=== PATIENT | male | born 1940 | race Caucasian/White ===

== ENCOUNTER 2017-01-27 17:30 | Emergency (ER) | payer MEDICARE ==
--- NOTE | 2017-01-27 17:56 | UC ---
Eye Complaint HPI - HPI Summary HPI Summary: 76 YEAR OLD MALE PRESENTS WITH COMPLAINS OF FOREIGN BODY IN LEFT EYE. - History of Current Complaint Chief Complaint: UCEye Stated Complaint: EYE COMPLAINT Time Seen by Provider: 01/27/17 17:50 Hx Obtained From: Patient Onset/Duration: Sudden Onset Timing: Constant Severity Initially: Moderate Severity Currently: Moderate Pain Scale Used: 0-10 Numeric - 5 Location of Injury: Conjunctiva, Eye Lid (upper) Character: Sharp, Throbbing Aggravating Factor(s): Light Alleviating Factor(s): Nothing - Allergies/Home Medications Allergies/Adverse Reactions: Allergies Allergy/AdvReac Type Severity Reaction Status Date / Time No Known Allergies Allergy Verified 01/27/17 17:35 PMH/Surg Hx/FS Hx/Imm Hx Previously Healthy: Yes - Surgical History Surgical History: Yes Surgery Procedure, Year, and Place: 1958 Correction of blocked ureter at 17yrs old. 1963 TONSILLECTOMY. FALL 2013 x 3 Prostate biopsy [facility] [place] * [place] 2011 LEFT ING.hernia repair [facility] [place]. 05/2013 CARDIAC STENTSx2 [facility] [place]. Right nephrectomy - Social History Alcohol Use: None Substance Use Type: None Smoking Status (MU): Never Smoked Tobacco Have You Smoked in the Last Year: No - Immunization History Most Recent Influenza Vaccination: never Most Recent Tetanus Shot: > 10 years ago Most Recent Pneumonia Vaccination: never Review of Systems Constitutional: Negative Skin: Negative Eyes: Drainage, Eye Redness, Photophobia ENT: Negative Respiratory: Negative Cardiovascular: Negative Gastrointestinal: Negative Genitourinary: Negative Motor: Negative Neurovascular: Negative Musculoskeletal: Negative Neurological: Negative Psychological: Negative All Other Systems Reviewed And Are Negative: Yes Physical Exam Triage Information Reviewed: Yes Vital Signs: Initial Vital Signs Temp 37.2 C 01/27/17 17:37 Pulse 56 01/27/17 17:37 Resp 16 01/27/17 17:37 Pulse Ox 100 01/27/17 17:37 Vital Signs Reviewed: Yes Eyes: Positive: Conjunctiva Inflamed, Discharge ENT Exam: Normal Dental Exam: Normal Neck exam: Normal Neck: Positive: 1 Respiratory Exam: Normal Cardiovascular Exam: Normal Abdominal Exam: Normal Musculoskeletal Exam: Normal Neurological Exam: Normal Psychological Exam: Normal Skin Exam: Normal Eye Complaint Course/Dx - Course Course Of Treatment: NO CORNEAL ABRASION SEEN ON FLUORESCEIN EXAM - Differential Dx/Diagnosis Provider Diagnoses: FOREIGN BODY LEFT EYE. EYE PAIN Discharge - Discharge Plan Condition: Stable Disposition: HOME Prescriptions: Ciprofloxacin 0.3% OPTH.ZEUS* [Cipro 0.3% Opth*] 2 drop LEFT EYE Q4H #1 btl Patient Education Materials: Conjunctivitis (ED), Eye Foreign Body (ED) Referrals: Guru Whittaker MD [Medical Doctor] - Silvio Laurent [Primary Care Provider] -
[2017-01-27] MEDS ORDERED: Fluorescein Sodium TOPICAL* 1 MG TEST ONE (17:57)
[2017-01-27] MEDS ORDERED: BSS OPTH.SOL* BTL ONE (17:58)
[2017-01-27] MEDS ORDERED: Tetracaine 0.5% OPTH.SOL 4 ML* 1 DROP BTL LEFT EYE ONE (17:58)
[2017-01-27] MEDS ORDERED: Tetracaine 0.5% OPTH.SOL 4 ML* 1 DROP BTL ONE (17:58)
[2017-01-27] MEDS ORDERED: Fluorescein Sodium TOPICAL* 1 MG TEST OPHTHALMIC ONE (20:31)
== END 2017-01-27 18:12 | disposition home or self-care (01) ==
LOC: UCEAST 17:30
DX: T15.92XA Foreign body on external eye, part unspecified, left eye, initial encounter (principal); H57.12 Ocular pain, left eye; X58.XXXA Exposure to other specified factors, initial encounter
CPT/HCPCS: 99212; A9270-GY; G0463

== ENCOUNTER 2017-06-17 13:16 | Emergency (ER) | payer MEDICARE ==
--- NOTE | 2017-06-17 14:05 | UC ---
Syncope/New Syncope HPI - HPI Summary HPI Summary: 12:30PM TODAY PT WAS TAPPING A MAPLE TREE WHEN HE PASSED OUT. WITNESSED BY BROTHER WHO IS NOT AVAILABLE TO GIVE HIS ACCOUNT. PT NOT SURE HOW LONG HE WAS UNCONSCIOUS. DENIES HEADACHE, NAUSEA, DIZZINESS, CP, SOB. FEELS LIGHTHEADED. NOT WORSE WITH CHANGE IN POSITION. CROCHETER DR. DANIELLE/DR. CATALAN. - History Of Current Complaint Chief Complaint: UCDizziness Stated Complaint: DIZZINESS Time Seen by Provider: 06/17/17 13:50 Hx Obtained From: Patient Onset/Duration: Sudden Onset Context: Witnessed - BROTHER Pain Intensity: 0 Pain Scale Used: 0-10 Numeric Aggravating Factor(s): Nothing Alleviating Factor(s): Spontaneous Resolution Associated Signs And Symptoms: Positive: Lightheadedness. Negative: AMS, Chest Pain, Headache, Numbness, Pain, Palpitations, Shortness Of Breath, Vomiting - Allergies/Home Medications Allergies/Adverse Reactions: Allergies Allergy/AdvReac Type Severity Reaction Status Date / Time No Known Allergies Allergy Verified 06/17/17 13:27 PMH/Surg Hx/FS Hx/Imm Hx Cardiovascular History: Cardiac Disease, Hypertension - Surgical History Surgical History: Yes Surgery Procedure, Year, and Place: 9 Correction of blocked ureter at 17yrs old. 1964 TONSILLECTOMY. FALL 2013 x 3 Prostate biopsy [facility]. 2011 LEFT ING.hernia repair [facility] [place]. 05/2013 CARDIAC STENTSx2 [facility] [place]. Right nephrectomy - Family History Known Family History: Positive: Hypertension - Social History Alcohol Use: None Substance Use Type: None Smoking Status (MU): Never Smoked Tobacco Have You Smoked in the Last Year: No - Immunization History Most Recent Influenza Vaccination: never Most Recent Tetanus Shot: > 10 years ago Most Recent Pneumonia Vaccination: never Review of Systems Constitutional: Negative Respiratory: Negative Cardiovascular: Negative Gastrointestinal: Negative Neurological: Other - LIGHTHEADED All Other Systems Reviewed And Are Negative: Yes Physical Exam Triage Information Reviewed: Yes Appearance: No Pain Distress, Well-Nourished, Other: - APPEARS FATIGUED AND SLIGHTLY DISHEVELED Vital Signs: Initial Vital Signs Temp 97.5 F 06/17/17 13:27 Pulse 82 06/17/17 13:27 Resp 16 06/17/17 13:27 BP 151/77 06/17/17 13:27 Pulse Ox 95 06/17/17 13:27 Vital Signs Reviewed: Yes Eyes: Positive: Conjunctiva Clear ENT: Positive: Hearing grossly normal, Pharynx normal, TMs normal Neck: Positive: Supple, Nontender, No Lymphadenopathy Respiratory Exam: Normal Cardiovascular: Positive: Other: - IRREGULARLY IRREGULAR Abdomen Description: Positive: Soft Musculoskeletal: Positive: No Edema Neurological: Positive: Alert Psychological: Positive: Normal Response To Family, Age Appropriate Behavior Skin: Negative: rashes Diagnostics - EKG Cardiac Rate: NL - 84BPM Cardiac Rhythm: AFib: New Syncope Course/Dx - Course Course Of Treatment: 2L O2 BY NC PLACED. PIV INSERTED. TO [facility] [place] ED BY AMBULANCE. - Differential Dx/Diagnosis Provider Diagnoses: SYNCOPE, ABNORMAL EKG - Physician Notification/Consults Discussed Patient Care With: Connor Bustos - TO [facility] [place] ED BY AMBULANCE Time Discussed With Above Provider: 14:00 Instructed by Provider To: MD Will See In ED Discharge - Discharge Plan Condition: Stable Disposition: TRANS HIGHER LVL OF CARE FAC Referrals: Silvio Laurent [Primary Care Provider] -
[2017-06-17 14:14] VITALS: BP 152/77
== END 2017-06-17 14:14 | disposition short-term general hospital (02) ==
LOC: UCEAST 13:16
DX: R55 Syncope and collapse (principal); R94.31 Abnormal electrocardiogram [ECG] [EKG]; I10 Essential (primary) hypertension
CPT/HCPCS: 93005; 99213; G0463

== ENCOUNTER 2017-06-17 14:31 | Inpatient (IN) | payer MEDICARE ==
[2017-06-17] MEDS ORDERED: Aspirin Low Dose CHEW TAB* 81 MG PO ONE (15:00)
[2017-06-17 15:01] LABS: ABS Basophils 0.1 10^3/ul (0-0.2); ABS Eosinophils 0.2 10^3/ul (0-0.6); ABS Lymphocytes 1.6 10^3/ul (1.0-4.8); ABS Monocytes 0.8 10^3/ul (0-0.8); ABS Nucleated RBC 0 10^3/ul; Eosinophil % 2.5 % (0-6); Hematocrit 42 % (42-52); Hemoglobin 14.3 g/dl (14.0-18.0); Lymphocyte % 20.7 % (25-47); Mean Corpuscular HGB Conc 34 g/dl (31-36); Mean Corpuscular Hemoglobin 28 pg (27-31); Mean Corpuscular Volume 84 fL (80-94); Mean Platelet Volume 8 um3 (7.4-10.4); Nucleated Red Blood Cells % 0; Platelet Count 168 10^3/ul (150-450); Red Blood Count 5.08 10^6/ul (4.0-5.4); Red Cell Distribution Width 15 % (10.5-15); White Blood Count 7.7 10^3/ul (3.5-10.8)
--- NOTE | 2017-06-17 15:08 | RAD ---
HISTORY: Atrial fibrillation COMPARISONS: August 21, 2015 VIEWS: 1: frontal portable view of the chest at 2:55 PM FINDINGS: LINES AND TUBES: None. CARDIOMEDIASTINAL SILHOUETTE: The cardiomediastinal silhouette is normal for portable technique. PLEURA: The costophrenic angles are sharp. No pleural abnormalities are noted. LUNG PARENCHYMA: The lungs are clear. ABDOMEN: The upper abdomen is clear. There is no subphrenic gas. BONES AND SOFT TISSUES: No bone or soft tissue abnormalities are noted. IMPRESSION: NO ACTIVE CARDIOPULMONARY DISEASE.
[2017-06-17 15:24] LABS: EGFR Non-African American 57.4 (>60)
[2017-06-17] MEDS ORDERED: Acetaminophen TAB* 325 MG PO PRN (16:17)
[2017-06-17] MEDS ORDERED: Ondansetron INJ* 2 MG/ML VIAL IV PRN (16:17)
[2017-06-17] MEDS ORDERED: Apixaban* 5 MG TAB PO SCH (16:19)
[2017-06-17 16:22] LABS: INR 1.02 (0.77-1.02)
[2017-06-17] MEDS: Apixaban* 5 MG TAB PO SCH (17:08)
[2017-06-17] MEDS ORDERED: Iodixanol* (CONTRAST) 320 MG/ML 100 ML SDV IV ONE (18:20)
[2017-06-17] MEDS: Atorvastatin* 20 MG TAB PO SCH (20:11)
--- NOTE | 2017-06-17 20:37 | RAD ---
INDICATION: Chest pain. Short of breath. Evaluate for pulmonary embolus. New onset atrial fibrillation COMPARISON: Chest x-ray June 17, 2017; CTA chest August 21, 2015 TECHNIQUE: Axial source images were obtained from the thoracic inlet to the hemidiaphragms following administration of [address] angiographic technique was utilized. Coronal and sagittal reconstructed images were acquired. CHEST FINDINGS: Neck/thyroid: The visualized neck to include the thyroid appear normal. Chest wall: There are no acute abnormalities of the bony thorax or chest wall. There is no supraclavicular, infraclavicular, or axillary lymphadenopathy. Lungs : There are no pulmonary parenchymal masses or infiltrates. There are patchy areas of air trapping/groundglass change which are new. There are calcified granulomas. There are no endobronchial lesions. Cardiomediastinal structures: There is no CT evidence of acute pulmonary embolic disease. The heart is enlarged with mild interval increase in size. There is no pericardial effusion. There is no evidence of aortic aneurysm or dissection. There is a calcified mitral annulus. There are multiple mildly prominent mediastinal lymph nodes, unchanged. The esophagus appears normal. Pleura : There are no pleural-based masses or effusions. Other: There is cholelithiasis. There is a small hiatal hernia. IMPRESSION: 1. No CT evidence of acute pulmonary embolic disease. 2. Patchy of air trapping/groundglass change representing a new finding. 3. Cardiomegaly with mild interval increase in heart size. 4. Evidence of old granulomatous disease. 5. Cholelithiasis. 6. Small hiatal hernia.
--- NOTE | 2017-06-17 22:58 | HP ---
CC: [facility]; Dr. Lombardi; Dr. Collado * HISTORY AND PHYSICAL: DATE OF ADMISSION: 06/17/17 PRIMARY CARE PROVIDER: [facility]. He does not know the name of his new PCP. CONSULTING DEPUTY GENERAL COUNSEL: Rebekah Lombardi MD ATTENDING PHYSICIAN WHILE IN THE HOSPITAL: Kahlil Winchester MD * (report dictated by Juma Melissa NP). CHIEF COMPLAINT: Syncope. HISTORY OF PRESENT ILLNESS: Mr. Pastor is a 76-year-old male patient. He carries a history of CAD. He has a history of prostate cancer, renal cancer, hyperlipidemia, CHF, hypertension, lymphoma, and history of sarcoidosis. He comes into our ER today stating that he was drinking up Pepsi and he had trouble getting the drink to go down and shortly thereafter, the next thing he remembers is he woke up on the floor. His brother was sitting over him trying to wake him up. He has stated that over the last couple of months, he has noticed at times when he does swallow, he does get lightheaded with this. He denies having any choking episodes and denies any coughing or shortness of breath. He states that he did not have any chest pain or palpitations today or fluttering in his chest, but he felt lightheaded before this had happened. He says that he has not been sick recently and there has been no fevers, chills. No vomiting. No diarrhea. He denied having any abdominal discomfort or any chest discomfort or shortness of breath or any orthopnea, weight gain, or swelling of the lower extremities. There has been no recent surgeries and no calf pain or leg pain or leg tenderness. He again was concerned because of this episode. He went over to [facility] and it was noted there that he appeared to be in AFib, which he has no recollection of. At that point, the patient was transferred to the hospital for further evaluation. PAST MEDICAL HISTORY: Again significant for: 1. CAD. 2. Prostate cancer. 3. Renal cancer, status post right nephrectomy. 4. Hyperlipidemia. 5. CHF. 6. Hypertension. 6. Lymphoma. 7. Sarcoidosis. PAST SURGICAL HISTORY: 1. He has had a right nephrectomy. 2. He has had tonsillectomy. 3. He has had heart catheterization with stent. HOME MEDICATIONS: According to the list provided includes: 1. Amlodipine 5 mg daily. 2. Metoprolol XL 25 mg p.o. daily. 3. Aspirin 81 mg daily. 4. Zocor 40 mg at bedtime. ALLERGIES TO MEDICATIONS: Include no known drug allergies. FAMILY HISTORY: His mother had a history of arrhythmia. The father lived to the age of 91. SOCIAL HISTORY: He does not smoke. He does not drink. Surrogate decision maker is his . REVIEW OF SYSTEMS: There is no documented fever. He denied having any significant weight change. There was no double vision. He denies having any ear discharge. There was no rhinorrhea. No sore throat. No thyroid enlargement. Denied having any chest pain. There has been no palpitations reported. He denies having any orthopnea. There was no nocturnal dyspnea. There was no abdominal discomfort. There was no dysuria, no frequency. No loss of consciousness. No pruritus and no skin ulceration. Review of 14 systems completed, all others negative. PHYSICAL EXAMINATION GENERAL: At this time, Mr. Pastor is a 76-year-old male patient. He is sitting in the ED stretcher. He does not appear to be in any acute distress. VITAL SIGNS: Blood pressure 132/75, pulse 72, respirations 16, O2 sat was 95% on room air, and his temperature was 97.8. HEENT: Head: Atraumatic. Eyes: EOMs intact. Sclerae are anicteric, not pale. Throat: Oral mucosa appears to be moist. No oropharyngeal erythema. NECK: Supple. LUNGS: Clear to auscultation. No wheezes, rales, or rhonchi. HEART: Sounds S1, S2. Irregularly irregular rate. No murmurs, rubs, or gallops. ABDOMEN: Soft, flat, nontender. Bowel sounds were present. EXTREMITIES: Pulses were 2+ throughout. No peripheral edema was noted. He had no calf tenderness at this point. NEUROLOGIC: He is awake. He is alert. He is oriented x3. His tongue is midline. His continuous loft operator were equal. There were no gross focal deficits. SKIN: Intact. DIAGNOSTIC STUDIES/LAB DATA: Today, WBC of 7.7, RBC of 5.08, hemoglobin of 14.3, hematocrit of 42, platelet count of 168. INR 1.02. Sodium 138, potassium 4.3, chloride of 108, bicarb 24, BUN 20, creatinine 1.22, which is right near his baseline, glucose 106, lactic 0.8, calcium 8.9, mag 2.0. Total bili 0.8, AST 20, ALT 14, alk phos 71. Troponin 0. Albumin of 4.1. TSH is pending. He did have a chest x-ray obtained today. The chest x-ray showed no active cardiopulmonary disease. EKG shows what appears to be atrial fibrillation, rate of 68. He had T-wave inversions in I, II, aVL along with aVF. He has had T-wave inversions in V4, 5 , and 6, and V3 and V2. When I look back to previous EKG, he has had these T- wave inversions in the past, but the AFib is new. Old medical records were reviewed. ASSESSMENT AND PLAN: Mr. Pastro is a 76-year-old male patient coming into the ED today with complaints of a syncopal episode in the setting of him drinking Pepsi and having difficulty swallowing. We were asked to evaluate for admission. We will admit him under inpatient status for: 1. Syncope. Again, the etiology of this could be cardiac arrhythmia related to possibly atrial fibrillation AFib with RVR. Could also be related to just vasovagal with him having difficulty with him drinking. He says this has happened a couple of times over the last few months, but nothing quite as severe as today. He says he fainted. He had no chest pain or palpitations with this. I think at this point, because of the atrial fibrillation, he deserves telemetry, echo, serial troponins. His mag was normal and his K was normal. TSH is pending. Ordered a Cardiology consult. I am going to go ahead and start him on Eliquis as his CHADS score is 3 which puts him at a high risk. So , I will put him on Eliquis for the time being, get Cardiology followup. I am also checking a D-dimer. 2. Coronary artery disease. We will continue his meds. He is on aspirin, beta - neisha, and statin. 3. Prostate cancer with renal cancer and lymphoma. He is to follow with Dr. Salgado. He is to continue his Lupron for his prostate cancer. 4. Hyperlipidemia. Continue statin therapy. 5. History of congestive heart failure. He does not appear to be in a failure. At this point, we are getting an echo, we will follow. 6. Hypertension. Continue meds as prescribed. 7. Sarcoidosis. We will continue to monitor and follow with his primary. This was a remote diagnosis. 8. DVT prophylaxis. He will be started on Eliquis. 9. Code status. Full code. 10. Fluids, electrolytes, and nutrition. He can have a heart healthy diet. TIME SPENT: Time spent on admission 60 minutes, greater than half the time was spent [id number] with the patient obtaining my history and physical; other half time was spent going over the plan of care with the patient and implementing plan of care. I did discuss the plan of care with my attending, Dr. Winchester; he is in agreement. JUMA MELISSA, NOEMI [id number]/CPS #: [id number]
--- NOTE | 2017-06-18 00:11 | PN ---
Progress Note - Progress Note Date of Service: 06/18/17 Note: Paged for 1.7 sec pause and 2.5 sec pause with HR in 50's. Will d/c metoprolol and amlodipine. ?cause of his syncope
[2017-06-18 06:29] LABS: ABS Basophils 0.1 10^3/ul (0-0.2); ABS Eosinophils 0.2 10^3/ul (0-0.6); ABS Lymphocytes 1.9 10^3/ul (1.0-4.8); ABS Monocytes 0.8 10^3/ul (0-0.8); ABS Nucleated RBC 0 10^3/ul; Eosinophil % 3.5 % (0-6); Hematocrit 41 % (42-52); Hemoglobin 13.7 g/dl (14.0-18.0); Lymphocyte % 26.9 % (25-47); Mean Corpuscular HGB Conc 34 g/dl (31-36); Mean Corpuscular Hemoglobin 28 pg (27-31); Mean Corpuscular Volume 84 fL (80-94); Mean Platelet Volume 8 um3 (7.4-10.4); Nucleated Red Blood Cells % 0.1; Platelet Count 158 10^3/ul (150-450); Red Blood Count 4.86 10^6/ul (4.0-5.4); Red Cell Distribution Width 15 % (10.5-15)
[2017-06-18 06:49] LABS: INR 1.1 (0.77-1.02)
[2017-06-18] MEDS: Apixaban* 5 MG TAB PO SCH ×2 (07:52→21:16)
[2017-06-18] MEDS: Aspirin Low Dose CHEW TAB* 81 MG PO SCH (07:52)
[2017-06-18] MEDS ORDERED: Metoprolol Succinate XL TAB* 25 MG PO SCH (09:00)
[2017-06-18] MEDS ORDERED: amLODIPine TAB* 5 MG PO SCH (09:00)
--- NOTE | 2017-06-18 17:08 | PN ---
Subjective Date of Service: 06/18/17 Interval History: Mr. Pastor states that he is feeling well today. He describes a sensation of lightheadedness from time to time when he drinks liquids. This lead to a syncopal episode yesterday. He states there is no rhyme or reason for why this happens. He has been eating and drinking well today without any such symptoms. He denies any difficulty with swallowing but reports that he will suddenly "feel funny" and lightheaded immediately after he swallows. He denies any vomiting. He has had no nausea or abdominal pain. Objective Active Medications: Acetaminophen (Tylenol Tab*) 650 mg PO Q4H PRN Apixaban (Eliquis*) 5 mg PO 0900,2100 ANDREAS Aspirin (Aspirin Low Dose Tab*) 81 mg PO QAM ANDREAS Atorvastatin Calcium (Lipitor*) 20 mg PO BEDTIME ANDREAS Ondansetron HCl (Zofran Inj*) 4 mg IV Q6H PRN Oxygen Devices in Use Now: None Appearance: Male sitting up in bed in NAD Eyes: No Scleral Icterus Ears/Nose/Mouth/Throat: Mucous Membranes Moist Neck: Trachea Midline Respiratory: Symmetrical Chest Expansion and Respiratory Effort, Clear to Percussion Cardiovascular: NL Sounds; No Murmurs; No JVD, No Edema Abdominal: NL Sounds; No Tenderness; No Distention Lymphatic: No Cervical Adenopathy Extremities: No Edema Skin: No Rash or Ulcers Neurological: Alert and Oriented x 3, NL Muscle Strength and Tone Nutrition: Taking PO's Result Diagrams: 06/18/17 06:07 06/18/17 06:07 Assess/Plan/Problems-Billing Assessment: Mr. Pastor is a 76 yo M with a PMH of CAD, prostate cancer, renal cancer, and sarcoidosis who was admitted on 06/17/17 with syncope, rapid afib, and ? for aspiration. - Patient Problems (1) Syncope Comment: - Suspect vasovagal r/t swallowing cold liquid in setting of afib. - No events noted on telemetry. (2) Afib Comment: - Remains in rate controlled afib. - Plan for LUIS cardioverson on Tuesday. - Continue metoprolol. - Continue eliquis. (3) HTN (hypertension) Comment: - BP well controlled. - Continue metoprolol, hold amlodipine. (4) CAD (coronary artery disease) Comment: - Asymptomatic. - Continue atorvastatin, metoprolol, and aspirin. (5) HLD (hyperlipidemia) Comment: - Continue atorvastatin. (6) DVT prophylaxis Comment: - Eliquis. (7) Full code status Comment: Status and Disposition: Inpatient with need for cardioversion on Tuesday. Anticipate discharge to home when medically stable.
[2017-06-18] MEDS: Atorvastatin* 20 MG TAB PO SCH (21:16)
--- NOTE | 2017-06-18 23:50 | CONS ---
CC: Hospitalist Service, Silvio Laurent PA-C; Dr. Collado CARDIOLOGY CONSULTATION NOTE: DATE OF CONSULT: 06/18/17 REASON FOR CONSULTATION: Loss of consciousness, atrial fibrillation, and shortness of breath. CHIEF COMPLAINT: Loss of consciousness. HISTORY OF PRESENT ILLNESS: Mr. Pastor is a 76-year-old patient followed by my partner, Dr. Collado, with known coronary artery disease. The patient was in his usual state of health. He was with his brother in a shop and started to drink a small cup of Pepsi and describes aspirating and unable to breathe. He felt dizzy and the next thing he knew he had woken up on the floor with his brother trying to wake him up. The patient states that for several months, he has trouble swallowing thin liquids, although he vehemently denies that he actually chokes, but he describes not being able to breathe with drinking thin liquids. Prior to this event, the patient had felt well. The patient was taken to the emergency room and found to be in atrial fibrillation. He is completely unaware of any palpitations or racing of the heart. Denies any chest pain, pressure, heaviness, orthopnea, or PND. PAST MEDICAL HISTORY: The patient has a past medical history of: 1. Coronary artery disease, most recent heart catheterization in December 2013 showing patent left main, LAD, 35 to 50% occlusions, circumflex 20% ostial narrowing with mild plaquing just more distally, right coronary artery dominant with a 60% narrowing in the right coronary artery, prior stents in the right coronary artery showed no thrombosis and distal right coronary artery had 40% occlusion. 2. Hypertension. 3. Dyslipidemia. 4. Prostate cancer. 5. Renal cell carcinoma, status post right nephrectomy. 6. History of congestive heart failure. 7. Sarcoidosis (distant biopsy proven at [facility]). MEDICATIONS: Outpatient medications include: 1. Toprol-XL 25 mg a day. 2. Amlodipine 5 mg a day. 3. Aspirin 81 mg a day. 4. Zocor 40 mg a day. Inpatient medications include: 1. Tylenol p.r.n. 2. Eliquis 5 mg b.i.d. 3. Aspirin 81 mg a day. 4. Lipitor 20 mg a day. 5. Toprol-XL 25 mg a day. 6. Ondansetron. ALLERGIES: The patient has no known drug allergies. FAMILY HISTORY: Mother with a rhythm problem. Father lived to age 91. SOCIAL HISTORY: The patient denies any exposures at work. He is currently retired. Nonsmoker. Nondrinker. Supportive , who is present with other family members. REVIEW OF SYSTEMS: The patient denies orthopnea, PND, fevers, chills, sweats, chest pain, pressure, heaviness, neck, jaw, arm pain. He denies missing any medications. He denies any changes in diet or recent travel or other alterations in activity. All other 14-point review of systems was unremarkable. PHYSICAL EXAMINATION: The patient is 5 feet 7 inches, weighs 190 pounds with a BMI of 30. Vitals: Currently, blood pressure 112/64, pulse 84, respiratory rate of 16, afebrile at 97.6, oxygen saturation 95% on room air. General Appearance: Older gentleman, appears comfortable, seated at 40 degrees, in no acute distress. Psychologically, pleasant and cooperative. Neurologically, awake, alert, oriented to person, place, and time. Cranial nerves II through XII intact. Grossly normal sensory and motor function in the upper and lower extremities and normal gait. Skin: Warm, dry. Age-appropriate changes. No appreciable cyanosis or rashes. HEENT: Pupils are equal and round. Mucous membranes moist. Neck: Without appreciable increase in JVP or thyromegaly. Lungs: Showed good effort and clear. No wheezing, rales, or rhonchi. Coronary : S1, S2, irregular without murmurs, rubs, or extra systoles. Abdomen: Soft and nontender. No appreciable hepatomegaly. Lower extremities were free of edema and warm. LABORATORY DATA/DIAGNOSTIC STUDIES: A 12-lead ECG from the emergency department yesterday at 4 p.m. shows no underlying atrial activity consistent with atrial fibrillation, irregularly irregular and V1 consistent with AFib. His ventricular rate is 68 beats a minute, QRS axis +30, normal AV conduction times, he has deeply inverted T waves across the precordial leads as well as in I, II, and aVL and flattened T waves in III and aVF. When this is compared with his baseline EKG at Dr. Collado' s office on 02/02/17, the AFib replaces sinus rhythm, but the T-wave inversions were seen previously. When I go back to the oldest EKG in our system of 2013, deeply inverted T waves were seen at that time as well. Chest x-ray shows no active disease. CT angiogram done yesterday on 06/17/17 shows no evidence of pulmonary embolus, patchy air trapping, this was a new finding, cardiomegaly, evidence of old granulomatous disease, hiatal hernia, and cholelithiasis. Labs: White count 7.0, hemoglobin 13.7, hematocrit 41, platelets 158, increased monos. INR 1.1. Sodium 136, potassium 4.3, chloride 108, bicarb 23, BUN 16, creatinine 0.98, glucose 102. Lactic acid 0.8. Magnesium 2.0. Normal transaminases. Troponins x3 0.00. TSH 6.55, free T4 was still pending. ASSESSMENT: In summary, Mr. Pastor is a 76-year-old gentleman who suffered a syncopal event after drinking Pepsi Cola, which sounds vagal to me and it sounds like he is aspirating without realizing it. There is a differential for his syncope, however, of tachy or brittani arrhythmias , especially with his past history of coronary artery disease as well as sarcoidosis. So, I agree with ongoing telemetry. The patient is now found in atrial fibrillation for which he is completely asymptomatic, likely because he shows good rate control. His atrial fibrillation is of uncertain duration, but new compared with January. I agree with anticoagulation as he is asymptomatic and has a CHADS score of at least 2 based on age and blood pressure, CHADsVASC 4. As this is his very first episode of AFib, I think he deserves cardioversion, but would need to be LUIS- guided. This was discussed with the patient. 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 A swallowing study has already been recommended, which I concur with. Additional recommendations will be made pending his clinical course and response to the above measures. long-term, he may benefit from an event monitor , external or implantable because of recurrent events, but this can be determined at a later date and we will keep him on inpatient telemetry for now. Thank you for allowing me to assist in this nice gentleman's care. [id number]/[facility] #: [id number] [facility]VERNEUR HEALTHBrianna
[2017-06-19] MEDS: Aspirin Low Dose CHEW TAB* 81 MG PO SCH (08:40)
[2017-06-19] MEDS: Metoprolol Succinate XL TAB* 25 MG PO SCH (08:40)
[2017-06-19] MEDS: Apixaban* 5 MG TAB PO SCH ×2 (08:40→20:34)
--- NOTE | 2017-06-19 10:43 | ECHO ---
Patient: CHRISTIAN DEGROOT Rec#: [id number] : 1940 Date: 06/19/2017 Age: 76y Height: 170.18 cm / 67.0 in Weight: 86.18 kg / 189.9 lbs Sex: M BSA: 1.98 Room#: 447 Admit Date#: 06/18/2017 Type: Inpatient Referring: Juma Melissa NP Reading: Nellie Baxter MD Pipe Inspector: Nelida Bhatia [facility] Transthoracic Echocardiogram Indication: Syncope/a-fib BP: 126/78 HR: 82 Rhythm: A-Fib Findings History: CAD with prior PCI,HTN,HLD,prostate cancer,renal cell cancer S/P right nephrectomy, CHF,sarcoidosis. Technical Comments: The study quality is good. Completed at 1010. Left Ventricle: The left ventricular chamber size is normal. Mild concentric left ventricular hypertrophy is observed. Global left ventricular wall motion and contractility are within normal limits.Gordon is not well seen, possible relative hypokinesis, possible thickening. The estimated ejection fraction is 50-55%. The assessment of diastolic function is non-diagnostic. The left ventricular diastolic filling pattern is consistent with elevated left ventricular end-diastolic pressure. Left Atrium: The left atrium is moderately dilated. Right Ventricle: The right ventricular cavity size is normal. The right ventricular global systolic function is normal. Right Atrium: The right atrium is mildly dilated. Aortic Valve: The aortic valve is trileaflet. The aortic valve leaflets are moderately thickened. There is moderate thickening of the non coronary cusp. Systolic excursion of the non coronary cusp is reduced.Does not open well. Systolic excursion of the right coronary cusp is reduced.Does not close completely. There is no evidence of aortic regurgitation. There is mild aortic stenosis. The highest aortic valve velocity was obtained with the standard probe from the A5C view. Mitral Valve: There is posterior mitral annular calcification. The mitral valve leaflets are mildly thickened. There is mild to moderate mitral regurgitation. There is no evidence of mitral stenosis. Tricuspid Valve: The tricuspid valve leaflets are normal. There is mild tricuspid regurgitation. The right ventricular systolic pressure is estimated at 41 mmHg. There is evidence of mild pulmonary hypertension. There is no tricuspid stenosis. Pulmonic Valve: The pulmonic valve appears normal. There is trace to mild pulmonic regurgitation. There is no pulmonic stenosis. Pericardium: A pericardial fat pad is visualized. Aorta: There is no dilatation of the ascending aorta. There is no dilatation of the aortic arch. There is no dilation of the aortic root. Pulmonary Artery: The main pulmonary artery appears normal. Venous: The inferior vena cava is dilated. There is a greater than 50% respiratory change in the inferior vena cava dimension. Conclusions Mild concentric left ventricular hypertrophy is observed. Global left ventricular wall motion and contractility are within normal limits, however the apex is not well seen, possible relative hypokinesis, possible thickening. The estimated ejection fraction is 50-55%. The left ventricular diastolic filling pattern is consistent with elevated left ventricular end-diastolic pressure. The right ventricular global systolic function is normal. Bi atrial enlargement. There is mild aortic stenosis. There is posterior mitral annular calcification and mild to moderate mitral regurgitation. There is mild tricuspid regurgitation. There is evidence of mild pulmonary hypertension: 41 mmHg. Compared with prior echo of 07/08/14, AFIb is new, the EF is stable, AV mildy tighter, mild increase in peak velocity and gradient across the aortic valve, the MR is newly noted, the TR is stable, PA pressure is stable. Recommendation: echo contrast to evaluate LV apex. Measurements Name Value Normal Range RVIDd (AP) 2D 2.8 cm (0.9 - 2.6) RVDdMajor (2D) 3.5 cm (2.2 - 4.4) RAd ISD 4CH 6.2 cm (3.4 - 4.9) RA (A4C)W 4.4 cm (2.9 - 4.6) IVSd (2D) 1 cm (0.6 - 1) LVPWd (2D) 1.2 cm (0.6 - 1) LVIDd (2D) 4.6 cm (3.6 - 5.4) LVIDs (2D) 3.2 cm - LV FS (2D) 30 % (25 - 45) Aortic Annulus 1.8 cm (1.4 - 2.6) Ao root diameter (2D) 3.3 cm (2.1 - 3.5) Ascending Ao 3.2 cm (2.1 - 3.4) Aortic arch 2.5 cm (1.8 - 3.4) Descending Ao 0.4 cm - LA dimension (AP) 2D 4.2 cm (2.3 - 3.8) LAd ISD 4CH 6.9 cm (2.9 - 5.3) LA ISD 4CH W 4.4 cm (2.5 - 4.5) Name Value Normal Range LA ESV SP 4CH (A/L) 90 ml - LA ESV SP 2CH (A/L) 83 ml - LA ESV BP (A/L) 89 ml - LA ESV BP (A/L) index 44.79 ml/m2 - LA ESV SP 4CH (MOD) 86 ml - LA ESV SP 2CH (MOD) 80 ml - Name Value Normal Range MV E-wave Vmax 1.1 m/sec - MV deceleration time 145 msec - MV A-wave Vmax 0.4 m/sec - MV E:A ratio 2.49 ratio - LV septal e' Vmax 0.07 m/sec - LV lateral e' Vmax 0.09 m/sec - LV E:e' septal ratio 15.71 ratio - LV E:e' lateral ratio 12.22 ratio - Name Value Normal Range AV Vmax 2.1 m/sec - AV VTI 38.7 cm - AV peak gradient 18 mmHg - AV mean gradient 8.75 mmHg - LVOT diameter 1.9 cm - LVOT Vmax 1 m/sec - LVOT VTI 20.1 cm - LVOT peak gradient 4.24 mmHg - LVOT mean gradient 1.98 mmHg - JAG (continuity Vmax) 1.3 cm2 - JAG (continuity VTI) 1.5 cm2 - Name Value Normal Range MR Vmax 5.2 m/sec - MR VTI 159.4 cm - Name Value Normal Range TR Vmax 2.9 m/sec - TR peak gradient 33 mmHg - RAP 8 mmHg - RVSP 41 mmHg - IVC diameter 2.1 cm - Name Value Normal Range PV Vmax 0.7 m/sec - PV peak gradient 1.83 mmHg -
--- NOTE | 2017-06-19 13:18 | PN ---
Subjective Date of Service: 06/19/17 - CC: LOC at admission Interval History: No further dizziness or LOC. No trouble eating or drinking here to date to date. No palpitations/racing of the heart. Medications Active Medications: Acetaminophen (Tylenol Tab*) 650 mg PO Q4H PRN PRN Reason: FEVER/PAIN Apixaban (Eliquis*) 5 mg PO 0900,2100 [facility] Last Admin: 06/19/17 08:40 Dose: 5 mg Aspirin (Aspirin Low Dose Tab*) 81 mg PO QAM [facility] Last Admin: 06/19/17 08:40 Dose: 81 mg Atorvastatin Calcium (Lipitor*) 20 mg PO BEDTIME [facility] Last Admin: 06/18/17 21:16 Dose: 20 mg Metoprolol Succinate (Toprol Xl Tab*) 25 mg PO DAILY [facility] Last Admin: 06/19/17 08:40 Dose: 25 mg Ondansetron HCl (Zofran Inj*) 4 mg IV Q6H PRN PRN Reason: NAUSEA Objective Vital Signs: Temp Pulse Resp BP Pulse Ox 97.9 F 67 18 128/67 98 06/19/17 07:42 06/19/17 07:42 06/19/17 08:00 06/19/17 07:42 06/19/17 07:56 Oxygen Devices in Use Now: None Appearance: elderly gentleman, eating lunch, in no distress. Eyes: No Scleral Icterus, PERRLA Ears/Nose/Mouth/Throat: NL Teeth, Lips, Gums, Clear Oropharnyx, Mucous Membranes Moist Neck: NL Appearance and Movements; NL JVP, Trachea Midline, No Thyroid Enlargement, Masses Respiratory: Symmetrical Chest Expansion and Respiratory Effort, Clear to Auscultation Cardiovascular: NL Sounds; No Murmurs; No JVD, RRR Abdominal: NL Sounds; No Tenderness; No Distention, No Hepatosplenomegaly Extremities: No Edema Skin: No Rash or Ulcers Neurological: Alert and Oriented x 3 Lines/Tubes/Other Access: Clean, Dry and Intact Peripheral IV Laboratory Results: INR (Anticoag Therapy) 1.10 (0.77-1.02) H 06/18/17 06:07 Total Bilirubin 0.80 mg/dL (0.2-1.0) 06/17/17 14:51 AST 20 U/L (13-39) 06/17/17 14:51 ALT 14 U/L (7-52) 06/17/17 14:51 Alkaline Phosphatase 71 U/L (34-104) 06/17/17 14:51 Total Protein 6.7 g/dL (6.4-8.9) 06/17/17 14:51 Albumin 4.1 g/dL (3.2-5.2) 06/17/17 14:51 Globulin 2.6 g/dL (2-4) 06/17/17 14:51 Albumin/Globulin Ratio 1.6 (1-3) 06/17/17 14:51 TSH 6.55 mcIU/mL (0.34-5.60) H 06/17/17 14:51 Diagnostic Imaging: ECG: Afib, good rate control. ECHO 06/19/17: EF 55%, mild , mild to mod MR, mild TR, PA pr 41 mmHg. Assessment/Plan 76 yo male admitted with LOC right after swallowing Pepsi and hx dizziness with swallowing intermittently. Found in new Afib, uncertain duration (NSR January) , good rate control. Hx CAD with distant stents. Syncope: Probably vagal but monitor with hx CAD and sarcoid. AF: Anticoagulate, continue metoprolol for rate control. LUIS and CV in AM, procedure explained to the patient and his daughter and . Dysphagia: Swallowing study and/or GI. CAD: BP and HR well controlled, Trops 0 x 3, appears stable at this time.
--- NOTE | 2017-06-19 14:38 | PN ---
Subjective Date of Service: 06/19/17 Interval History: Mr. Pastor reports feeling ok today. He reports feeling mildly lightheaded with mobility but denies any lightheadedness with swallowing or difficulty swallowing today. Objective Active Medications: Acetaminophen (Tylenol Tab*) 650 mg PO Q4H PRN Apixaban (Eliquis*) 5 mg PO 0900,2100 ANDREAS Aspirin (Aspirin Low Dose Tab*) 81 mg PO QAM ANDREAS Atorvastatin Calcium (Lipitor*) 20 mg PO BEDTIME ANDREAS Metoprolol Succinate (Toprol Xl Tab*) 25 mg PO DAILY ANDRE[facility] Ondansetron HCl (Zofran Inj*) 4 mg IV Q6H PRN Vital Signs: Temp Pulse Resp BP Pulse Ox 97.9 F 67 18 128/67 98 06/19/17 07:42 06/19/17 07:42 06/19/17 08:00 06/19/17 07:42 06/19/17 07:56 Oxygen Devices in Use Now: None Appearance: Male lying in bed in NAD Eyes: No Scleral Icterus Ears/Nose/Mouth/Throat: Mucous Membranes Moist Neck: Trachea Midline Respiratory: Symmetrical Chest Expansion and Respiratory Effort, Clear to Auscultation Cardiovascular: NL Sounds; No Murmurs; No JVD, No Edema Abdominal: NL Sounds; No Tenderness; No Distention Lymphatic: No Cervical Adenopathy Extremities: No Edema Skin: No Rash or Ulcers Neurological: Alert and Oriented x 3, NL Muscle Strength and Tone Nutrition: Taking PO's Result Diagrams: 06/18/17 06:07 06/18/17 06:07 Assess/Plan/Problems-Billing Assessment: Mr. Pastor is a 76 yo M with a PMH of CAD, prostate cancer, renal cancer, and sarcoidosis who was admitted on 06/17/17 with syncope, rapid afib, and ? for aspiration. - Patient Problems (1) Syncope Comment: - Suspect vasovagal r/t swallowing liquid in setting of afib. - No events noted on telemetry. (2) Afib Comment: - Remains in rate controlled afib. - Plan for LUIS cardioverson on Tuesday. - Continue metoprolol. - Continue eliquis. (3) Swallowing disorder Comment: - Plan for esophogram, ? esophageal motility problem or stricture. (4) HTN (hypertension) Comment: - BP well controlled. - Continue metoprolol, hold amlodipine. (5) CAD (coronary artery disease) Comment: - Asymptomatic. - Continue atorvastatin, metoprolol, and aspirin. (6) HLD (hyperlipidemia) Comment: - Continue atorvastatin. (7) DVT prophylaxis Comment: - Eliquis. (8) Full code status Comment: Status and Disposition: Inpatient with need for cardioversion on Tuesday. Anticipate discharge to home when medically stable.
[2017-06-19] MEDS: Atorvastatin* 20 MG TAB PO SCH (20:33)
--- NOTE | 2017-06-19 22:47 | ED ---
Kimo Woods Jennifer, scribed for Connor Bustos MD on 06/17/17 at 1454 . Syncope/Near Syncope - HPI Summary HPI Summary: The patient is a 76 year old male who presents with an episode of syncope at 12: 00 today. The patient reports that he was drinking cola when he felt like he wasnt getting enough O2 to his head, became dizzy, and fell over. He additionally complains that hes had shortness of breath for the past 3-4 years. The patient denies chest pain, back pain, arm pain, and cough. The patient reports that this has happened before, also after drinking a beverage. - History Of Current Complaint Chief Complaint: EDSyncope Hx Obtained From: Patient Onset/Duration: Lasting Hours - Occurred at 12:00 today Timing: Frequency Of Episodes - Occurred at least once before Activity At Onset: Other - Drinking cola Associated Head Trauma: No Aggravating Factor(s): Nothing Alleviating Factor(s): Nothing Associated Signs And Symptoms: Negative - chest pain, back pain, arm pain, cough , Other - Shortness of breath, dizziness - Allergies/Home Medications Allergies/Adverse Reactions: Allergies Allergy/AdvReac Type Severity Reaction Status Date / Time No Known Allergies Allergy Verified 06/17/17 13:27 Home Medications: Home Medications Metoprolol Succinate XL TAB* [Toprol XL TAB*] 25 mg PO QAM 06/17/17 [History Confirmed 06/17/17] Simvastatin (NF) [Zocor (NF)] 40 mg PO BEDTIME 06/17/17 [History Confirmed 06/17] amLODIPine TAB* [Norvasc 5 mg TAB*] 5 mg PO QAM 06/17/17 [History Confirmed ] PMH/Surg Hx/FS Hx/Imm Hx Endocrine/Hematology History: Denies: Hx Diabetes, Hx Thyroid Disease Cardiovascular History: Reports: Hx Angina, Hx Congestive Heart Failure - pt states, Hx Coronary Artery Disease - 2 STENTS, 05/2013, Hx Hypertension - TREATED , Other Cardiovascular Problems/Disorders - SARCOID Denies: Hx Pacemaker/ICD Respiratory History: Reports: Other Respiratory Problems/Disorders - Hx OF Sarcoidosis Denies: Hx Asthma, Hx Chronic Obstructive Pulmonary Disease (COPD) GI History: Reports: Other GI Disorders - hernia, left side Denies: Hx Ulcer History: Reports: Hx Benign Prostatic Hyperplasia, Hx Kidney Stones, Hx Renal Disease - carcinoma, Other Problems/Disorders - 1958SURGERY, BLOCKED URETER, prostate cancer Denies: Hx Dialysis Musculoskeletal History: Denies: Hx Arthritis, Hx Osteoporosis Sensory History: Reports: Hx Contacts or Glasses - not with patient, Hx Hearing Aid - DOES NOT WEAR OFTEN Opthamlomology History: Reports: Hx Contacts or Glasses - not with patient Psychiatric History: Denies: Hx Panic Disorder - Cancer History Cancer Type, Location and Year: Kidney CA. prostate CA. lymphoma Hx Chemotherapy: No Hx Radiation Therapy: Yes - 40 TREATMENTS TO PROSTATE Hx Palliative Cancer Treatment: No - Surgical History Surgery Procedure, Year, and Place: 1958 Correction of blocked ureter at 17yrs old. 1963 TONSILLECTOMY. FALL 2013 x 3 Prostate biopsy [facility]. 2011 LEFT ING.hernia repair [facility] [place]. 05/2013 CARDIAC STENTSx2 [facility] [place]. Right nephrectomy Hx Anesthesia Reactions: No Infectious Disease History: No Infectious Disease History: Denies: Hx Clostridium Difficile, Hx Hepatitis, Hx Human Immunodeficiency Virus (HIV), Hx of Known/Suspected MRSA, Hx Shingles, Hx Tuberculosis, Hx Known/ Suspected VRE, Hx Known/Suspected VRSA, History Other Infectious Disease, Traveled Outside the [place] in Last 30 Days - Family History Known Family History: Positive: Hypertension - Social History Alcohol Use: None Hx Substance Use: No Substance Use Type: Reports: None Hx Tobacco Use: No Smoking Status (MU): Never Smoked Tobacco Have You Smoked in the Last Year: No Review of Systems Negative: Fever, Chills Negative: Erythema Negative: Sore Throat Negative: Chest Pain Positive: Shortness Of Breath. Negative: Cough Negative: Abdominal Pain, Vomiting, Nausea Negative: dysuria, hematuria Negative: Myalgia, Edema Negative: Rash Neurological: Other - Dizziness Positive: Syncope All Other Systems Reviewed And Are Negative: Yes Physical Exam - Summary Physical Exam Summary: Constitutional: Well-developed, Well nourished, Alert. (-) Distressed Skin: Warm, Dry HENT: Normocephalic; Atraumatic Eyes: Conjunctiva normal Neck: Musculoskeletal ROM normal neck. (-) JVD, (-) Stridor, (-) Tracheal deviation Cardio: Rhythm regular, rate normal, Heart sounds normal; Intact distal pulses; The pedal pulses are 2+ and symmetric. Radial pulses are 2+ and symmetric. (-) Murmur Pulmonary/Chest wall: Effort normal. (-) Respiratory distress, (-) Wheezes, (-) Rales Abd: Soft, (-) Tenderness, (-) Distension, (-) Guarding, (-) Rebound Musculoskeletal: (-) Edema Lymph: (-) Cervical adenopathy Neuro: Alert, Oriented x3 Psych: Mood and affect Normal Triage Information Reviewed: Yes Vital Signs On Initial Exam: Initial Vitals Temp Pulse Resp BP Pulse Ox 97.8 F 78 14 147/72 98 06/17/17 14:39 06/17/17 14:39 06/17/17 14:39 06/17/17 14:39 06/17/17 14:39 Vital Signs Reviewed: Yes Diagnostics - Vital Signs Vital Signs Temp Pulse Resp BP Pulse Ox 06/17/17 14:39 97.8 F 78 14 147/72 98 - Laboratory Result Diagrams: 06/17/17 14:51 06/17/17 14:51 Lab Statement: Any lab studies that have been ordered have been reviewed, and results considered in the medical decision making process. - Radiology CXR Xray Interpretation: No Acute Changes - NO ACTIVE CARDIOPULMONARY DISEASE. Dr. Bustos has reviewed this report. Radiology Interpretation Completed By: Radiologist - EKG 14:38 EKG Rhythm: Atrial Fibrillation - 68 BPM EKG Interpretation: JE, no STEMI, ST depressions in V4-V6 EKG Comparison: No Significant Change - from prior EKGs Course/Dx Assessment/Plan: The patient is a 76 year old male who presents with an episode of syncope at 12:00 today. In the ED course the patient was given Aspirin. Bloodwork was obtained. EKG showed no significant change from prior EKGs. CXR was obtained. The patient is diagnosed with Syncopal episode . The patient is admitted to [facility] [place]. - Diagnoses Provider Diagnoses: Syncopal episodes - Physician Notifications Discussed Care of Patient With: Kahlil Winchester Time Discussed With Above Provider: 15:35 Instructed by Provider To: Admit As Inpatient Discharge - Discharge Plan Condition: Fair Disposition: ADMITTED TO [facility] documentation as recorded by the Kimo anguiano Jennifer accurately reflects the service I personally performed and the decisions made by , Connor Bustos MD.
--- NOTE | 2017-06-20 11:14 | RAD ---
INDICATION: Esophageal dysphagia. COMPARISON: Comparison is made with a prior study from November 06, 2004. Technique: A single contrast barium swallow exam was performed in the upright position and additional images were obtained supine. Approximately 2.7 minutes of intermittent fluoroscopic guidance were used during the exam. Findings: The esophageal peristalsis appeared decreased with multiple tertiary waves and slow clearing of the esophagus consistent with presbyesophagus. There is a sliding-type hernia present. Just above the hernia there is a small area of narrowing or stricture which is smooth in appearance with mild hold up of barium at that level. No gastroesophageal reflux was noted. IMPRESSION: 1. 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 2. SMALL HIATAL HERNIA WITHOUT EVIDENCE FOR GASTROESOPHAGEAL REFLUX. 3. PRESBYESOPHAGUS. CPT II Codes: 6045F
--- NOTE | 2017-06-20 11:23 | PN ---
Subjective Date of Service: 06/20/17 Interval History: Mr. Pastor denies complaint and is hopeful for discharge today. He specifically denies chest pain, SOB, nausea, or abdominal pain. Objective Active Medications: Acetaminophen (Tylenol Tab*) 650 mg PO Q4H PRN Apixaban (Eliquis*) 5 mg PO 0900,2100 ANDREAS Aspirin (Aspirin Low Dose Tab*) 81 mg PO QAM ANDREAS Atorvastatin Calcium (Lipitor*) 20 mg PO BEDTIME ANDREAS Metoprolol Succinate (Toprol Xl Tab*) 25 mg PO DAILY ANDREAS Ondansetron HCl (Zofran Inj*) 4 mg IV Q6H PRN Vital Signs: Temp Pulse Resp BP Pulse Ox 98.2 F 55 16 136/74 98 06/20/17 08:22 06/20/17 08:22 06/20/17 08:22 06/20/17 08:22 06/20/17 08:22 Oxygen Devices in Use Now: None Appearance: Male lying in bed in NAD Eyes: No Scleral Icterus Ears/Nose/Mouth/Throat: Mucous Membranes Moist Neck: Trachea Midline Respiratory: Symmetrical Chest Expansion and Respiratory Effort, Clear to Auscultation Cardiovascular: NL Sounds; No Murmurs; No JVD, No Edema Abdominal: NL Sounds; No Tenderness; No Distention Lymphatic: No Cervical Adenopathy Extremities: No Edema Skin: No Rash or Ulcers Neurological: Alert and Oriented x 3, NL Muscle Strength and Tone Nutrition: Taking PO's Result Diagrams: 06/18/17 06:07 06/18/17 06:07 Assess/Plan/Problems-Billing Assessment: Mr. Pastor is a 76 yo M with a PMH of CAD, prostate cancer, renal cancer, and sarcoidosis who was admitted on 06/17/17 with syncope, rapid afib, and ? for aspiration. - Patient Problems (1) Syncope Comment: - Suspect vasovagal r/t swallowing liquid in setting of afib. - No events noted on telemetry. (2) Afib Comment: - Remains in rate controlled afib. - Plan for LUIS cardioverson today. - Continue metoprolol. - Continue eliquis. (3) Swallowing disorder Comment: - None identified based on history and esophogram only found mild smooth stricture. - Refer to GI as needed outpatient. (4) HTN (hypertension) Comment: - BP well controlled. - Continue metoprolol, hold amlodipine. (5) CAD (coronary artery disease) Comment: - Asymptomatic. - Continue atorvastatin, metoprolol, and aspirin. (6) HLD (hyperlipidemia) Comment: - Continue atorvastatin. (7) DVT prophylaxis Comment: - Eliquis. (8) Full code status Comment: Status and Disposition: Inpatient. Anticipate discharge to home when medically stable.
[2017-06-20] MEDS: Metoprolol Succinate XL TAB* 25 MG PO SCH (12:08)
[2017-06-20] MEDS: Apixaban* 5 MG TAB PO SCH ×2 (12:09→21:13)
[2017-06-20] MEDS: Aspirin Low Dose CHEW TAB* 81 MG PO SCH (12:09)
[2017-06-20] MEDS ORDERED: fentaNYL* 50 MCG/ML 2 ML VIAL (100 MCG VIAL) ONE (15:06)
[2017-06-20] MEDS ORDERED: Flumazenil* 0.1 MG/ML 5 ML MDV ONE (15:06)
[2017-06-20] MEDS ORDERED: Lidocaine 2% VISCOUS* 15 ML UDC ONE (15:06)
[2017-06-20] MEDS ORDERED: Naloxone* 0.4 MG/ML 1 ML VIAL ONE (15:06)
[2017-06-20] MEDS ORDERED: Midazolam* 1 MG/ML 10 ML VIAL (10 MG) ONE (15:06)
--- NOTE | 2017-06-20 16:21 | TEE ---
Patient: CHRISTIAN DEGROOT Rec#: [id number] : 1940 Date: 06/20/2017 Age: 76y Height: 170 cm / 66.9 in Weight: 86 kg / 189.5 lbs Sex: M BSA: 1.98 Room#: [facility] Admit Date#: 06/18/2017 Type: Inpatient Referring: Nellie Baxter MD Performing: Elías Collado MD Reading: Elías Collado MD Financial Risk Manager: Nelida Middleton RD,RDMS Nurse: DarielKallie Bueno Transesophageal Echocardiogram Indication: AFIB BP: 136/74 HR: 75 Rhythm: A-Fib Findings History: CAD, PCI, HTN, HLD, AFIB, CHF, sarcoidosis, renal cell carcinoma Technical Comments: The study quality is good. LIMITED STUDY. Patient had a full transthoracic study on 06/19/17 Left Ventricle: The left ventricular chamber size is normal. Mild concentric left ventricular hypertrophy is observed. The estimated ejection fraction is 60-65%. The assessment of diastolic function is non-diagnostic. Left Atrium: The left atrium is moderately dilated. There is no thrombus visualized in the left atrial appendage. Right Ventricle: The right ventricular chamber size and systolic function are within normal limits. Right Atrium: The right atrium is mildly dilated. The bubble study is negative. A patent foramen ovale is not demonstrated with color Doppler and agitated contrast. Aortic Valve: The aortic valve structure is not well visualized. The aortic valve leaflets are mildly thickened. Mitral Valve: The mitral valve leaflets appear normal. There is mild to moderate mitral regurgitation. There is no evidence of mitral stenosis. Tricuspid Valve: The tricuspid valve leaflets are normal. There is mild tricuspid regurgitation. There is evidence of mild to moderate pulmonary hypertension. Pulmonic Valve: The pulmonic valve structure is not well visualized. Pericardium: There is no significant pericardial effusion. Aorta: There is plaque visualized in the ascending aorta. There is plaque visualized in the transverse aorta. There is plaque visualized in the descending aorta. Pulmonary Artery: The main pulmonary artery is not well visualized. Venous: The inferior vena cava appears normal in size. The flow pattern of the pulmonary veins appear normal. The superior vena cava appears normal. LUIS Procedures: The subcostal view was not obtained, as it was contraindicated due to the patient's medical condition. Transgastric imaging not perfomed due to stricture of distal esophagus. History and physical as well as labs were reviewed. The patient was in a fasting state. Risks and benefits of the procedure, including alternatives, were discussed and written informed consent was obtained. The patient and/or their health care bottling equipment sales representative expressed understanding of the procedure, risks and benefits. Baseline and continuous monitoring of blood pressure, heart rate, pulse oximetry and heart rhythm was performed throughout the procedure. The appropriate time-out procedure was performed as per [facility] protocol. The patient was placed in the left lateral decubitus position. The patient's posterior pharynx was anesthetized with 20ml of 2% viscous lidocaine. The patient received IV Midazolam with a total dose of 4 mg The patient received IV Fentanyl with a total dose of 50 mcg An oral bite block was inserted for protection of oral dentition. The multiplane transesophageal echocardiogram probe was inserted through the posterior oropharynx and advanced into the esophagus without difficulty. Multiple 2D images were obtained of the heart and its related structures. Color flow Doppler was used for evaluation. Spectral Doppler was also used. The atrial septum was interrogated with color flow Doppler. At the conclusion of the procedure the probe was removed with continuous suction without complications. The patient tolerated the procedure with no apparent complications. Contrast: Intravenous agitated saline contrast was used to assess intracardiac shunting. Image 20 Conclusions The study quality is good. LIMITED STUDY. Patient had a full transthoracic study on 06/19/17 The estimated ejection fraction is 60-65%. There is no thrombus visualized in the left atrial appendage. The right ventricular chamber size and systolic function are within normal limits. A patent foramen ovale is not demonstrated with color Doppler and agitated contrast. There is mild to moderate mitral regurgitation. There is mild tricuspid regurgitation. There is evidence of mild to moderate pulmonary hypertension. There is no significant pericardial effusion. Measurements Name Value Normal Range TR Vmax 3 m/sec - TR peak gradient 36 mmHg - RAP 8 mmHg - RVSP 44 mmHg -
--- NOTE | 2017-06-20 17:25 | PN ---
Progress Note - Progress Note Date of Service: 06/20/17 Note: Mr. Pastor is reported to have tolerated his LUIS with cardioversion and is now ready for discharge once he recovers from sedation. Patient to follow up with Dr. Clolado in 2 weeks.
[2017-06-20] MEDS: Atorvastatin* 20 MG TAB PO SCH (21:13)
--- NOTE | 2017-06-20 23:51 | CARD ---
CARDIOVERSION NOTE: DATE OF PROCEDURE: 06/20/17 - ROOM #[id number] PROCEDURE: Cardioversion. INDICATION: Atrial fibrillation. HISTORY: The patient is a 76-year-old gentleman with a history of coronary artery disease. He was admitted to the hospital after a coughing spell and syncopal episode yesterday. He was found to be in atrial fibrillation. It is unclear how long he was in atrial fibrillation. Cardioversion was recommended. The patient had just undergone transesophageal echocardiogram, which demonstrated no evidence of thrombus in his left atrial appendage. No evidence of stenting. PROCEDURE IN DETAIL: The patient was given an additional 1 mg of Versed for conscious sedation. He was cardioverted with 150 joules of synchronized biphasic energy. The patient did not convert to normal sinus rhythm with that. The patient was given another 1 mg of Versed and cardioverted with 200 joules of synchronized laser energy. The patient converted to normal sinus rhythm. At that time, the patient tolerated the procedure well with no complications. [id number]/[facility] #: [id number] CHRISTY
[2017-06-21 04:49] VITALS: BP 122/69
[2017-06-21] MEDS: Metoprolol Succinate XL TAB* 25 MG PO SCH (08:48)
[2017-06-21] MEDS: Apixaban* 5 MG TAB PO SCH (08:49)
[2017-06-21] MEDS: Aspirin Low Dose CHEW TAB* 81 MG PO SCH (08:49)
--- NOTE | 2017-06-21 10:11 | DS ---
CC: DIANE Wren* [facility] MEDICINE DISCHARGE SUMMARY: DATE OF ADMISSION: 06/17/17 DATE OF DISCHARGE: 06/20/17 PRIMARY CARE PROVIDER: DIANE Wren ATTENDING PHYSICIAN: Morenita Pope DO * (dictation provided by Adela Mccormick NP ). PRIMARY DIAGNOSES: 1. Syncope, vasovagal. 2. New onset atrial fibrillation. SECONDARY DIAGNOSES: 1. Coronary artery disease. 2. Prostate cancer. 3. Renal cancer, status post right nephrectomy. 4. Hyperlipidemia. 5. Congestive heart failure. 6. Hypertension. 7. Lymphoma. 8. Sarcoidosis. PAST SURGICAL HISTORY: 1. Right nephrectomy. 2. Tonsillectomy. 3. Heart catheterization with stent. MEDICATIONS: At the time of discharge are: 1. Eliquis 5 mg p.o. b.i.d. 2. Amlodipine 5 mg p.o. daily. 3. Metoprolol succinate 25 mg p.o. daily. 4. Aspirin 81 mg p.o. daily. 5. Zocor 40 mg p.o. at bedtime. HOSPITAL COURSE: Mr. Pastor is a 76-year-old male with a past medical history as mentioned above who presented to the hospital on 06/17/17 with concern for a syncopal episode. Please see the dictated H and P from Juma Melsisa NP, for complete details. In brief, the patient states that he was drinking a Pepsi and suddenly felt very lightheaded and the last thing he remembers is waking up on the floor. Patient states he has had multiple episodes like this in the past where while drinking a liquid, he will suddenly feel very lightheaded and feel that he is about to faint. It does not seem to have any rhyme or reason for these episodes. It does not seem to be associated with eating food, but only with drinking liquids intermittently. In the emergency room, Mr. Pastor is confirmed to be in atrial fibrillation, which was new for him. He had a chest thorax CTA, which is read as follows, " no CT evidence of acute pulmonary embolic disease, patchy air trapping, ground- glass changes, represents a new finding, cardiomegaly with mild interval increase in heart size, evidence of old granulomatous disease, cholelithiasis and small hiatal hernia." Patient had a consultation with Dr. Baxter who recommended that he would benefit from transesophageal echocardiogram with likely cardioversion. Mr. Pastor was able to tolerate oral intake without any trouble during the hospitalization; however, based on his description of lightheadedness associated with drinking liquids, he did go on for an esophagogram, which was read as follows: "Mild smooth stricture in the distal esophagus, consider endoscopy for further evaluation, small hiatal hernia without evidence for gastroesophageal reflux, presbyesophagus." The recommendation is that the patient follow up with Gastroenterology for possible EGD as indicated. Mr. Pastor went on for transesophageal echocardiogram with Dr. Collado, which was successful in returning him to normal sinus rhythm and he is medically stable for discharge to home. Mr. Pastor will be discharged on his home metoprolol as well as newly on Eliquis for stroke prevention. DISPOSITION: Home. ACTIVITY: As tolerated DIET: Low caffeine, low alcohol, heart healthy. FOLLOWUP PLANS: 1. Please follow up with primary care physician in the next week regarding this hospitalization. 2. Please follow up with Dr. Collado in 2 weeks regarding this hospitalization. 3. Please consider follow up with [facility] for mild esophageal stricture. TIME SPENT: Approximately 60 minutes was spent on the discharge of this patient , more than half the time was spent with the patient at the bedside reviewing the events leading up to this hospitalization, performing the physical examination, and reviewing my plan of care. ADELA MCCORMICK NP [id number]/[facility] #: [id number] CHRISTY
== END 2017-06-21 09:48 | disposition home or self-care (01) | DRG 309 ==
LOC: ED 14:31 → MEDTELE 16:13 → INTOOBSV 06-18 18:22 → OBSVTOIN 06-18 18:22 → MEDTELE 06-19 17:38
PROVIDERS: ADMIT Internal Medicine; ATTEND Internal Medicine
PROC: B246ZZ4 Ultrasonography of Right and Left Heart, Transesophageal (ICD-10-PCS; principal; 2017-06-20)
PROC: 5A2204Z Restoration of Cardiac Rhythm, Single (ICD-10-PCS; 2017-06-20)
DX: I48.91 Unspecified atrial fibrillation (principal); C85.90 Non-Hodgkin lymphoma, unspecified, unspecified site; I11.0 Hypertensive heart disease with heart failure; I50.9 Heart failure, unspecified; R55 Syncope and collapse; I25.10 Atherosclerotic heart disease of native coronary artery without angina pectoris; C61 Malignant neoplasm of prostate; E78.5 Hyperlipidemia, unspecified; D86.9 Sarcoidosis, unspecified; K44.9 Diaphragmatic hernia without obstruction or gangrene; Z85.53 Personal history of malignant neoplasm of renal pelvis; Z79.82 Long term (current) use of aspirin; Z79.899 Other long term (current) drug therapy; R13.10 Dysphagia, unspecified; Z95.5 Presence of coronary angioplasty implant and graft
CPT/HCPCS: 36415; 71045; 71275; 74220; 80048; 80053; 83605; 83735; 84439; 84443; 84484; 85025; 85379; 85610; 93005; 93306; 94760; 99213; 99284; A9270-GY; G0378; G0463; J2250; J2310; J3010; Q9967

== ENCOUNTER 2017-06-22 09:39 | Emergency (ER) | payer MEDICARE ==
[2017-06-22] MEDS ORDERED: NS 0.9% 1000 ML* 1,000 ML IV SCH (10:45)
--- NOTE | 2017-06-22 11:04 | RAD ---
Indication: Confusion. Single frontal view of the chest performed at 1048 hours was reviewed. Comparison is made with previous exam dated June 17, 2017. No mediastinal shift is noted. Cardiomegaly is noted. Lung anderson appear clear. IMPRESSION: NO ACTIVE CARDIOPULMONARY DISEASE IS NOTED.
--- NOTE | 2017-06-22 11:46 | RAD ---
Indication: Dizziness and confusion. CT of the brain was performed without IV contrast. No prior study is available for comparison. Ventricular structures are midline. No midline shift is noted. The extra-axial spaces are unremarkable. There is no evidence of intracranial mass or hemorrhage. No other high or low density lesions are identified. Mastoid air cells and paranasal sinuses are otherwise unremarkable. IMPRESSION: No intracranial mass or hemorrhage is noted.
[2017-06-22 11:49] LABS: ABS Basophils 0.1 10^3/ul (0-0.2); ABS Eosinophils 0.2 10^3/ul (0-0.6); ABS Lymphocytes 1.4 10^3/ul (1.0-4.8); ABS Monocytes 0.8 10^3/ul (0-0.8); ABS Neutrophils 4.3 10^3/ul (1.5-7.7); ABS Nucleated RBC 0 10^3/ul; Eosinophil % 2.7 % (0-6); Hematocrit 45 % (42-52); Hemoglobin 14.8 g/dl (14.0-18.0); Lymphocyte % 21.3 % (25-47); Mean Corpuscular HGB Conc 33 g/dl (31-36); Mean Corpuscular Hemoglobin 28 pg (27-31); Mean Corpuscular Volume 84 fL (80-94); Mean Platelet Volume 8 um3 (7.4-10.4); Nucleated Red Blood Cells % 0; Platelet Count 179 10^3/ul (150-450); Red Cell Distribution Width 15 % (10.5-15); White Blood Count 6.7 10^3/ul (3.5-10.8)
[2017-06-22 12:00] LABS: INR 1.19 (0.77-1.02)
[2017-06-22 12:08] LABS: EGFR Non-African American 62.1 (>60)
[2017-06-22] MEDS ORDERED: ALPRAZolam TAB* 0.5 MG PO ONE (13:32)
[2017-06-22 13:53] VITALS: BP 142/68
--- NOTE | 2017-06-22 14:02 | ED ---
Demetrius Woods Angela, scribed for Jovon Julian MD on 06/22/17 at 1030 . Dizziness - HPI Summary HPI Summary: This pt is a 76 y/o male presenting [place] [facility] c/o dizziness and lightheadedness since approximately 08:00 today. Pt additionally reports nausea, visual changes and feeling clammy. He denies chest pain, syncope, diarrhea, melena, bloody stools. Pt was seen in the ED on 06/17/17 after a syncopal episode after he drank Pepsi. Pt passed out for a few minutes and was unable to recognize his brother. Pt was admitted [place] [facility] after a new onset of afib. He had cardioversion done and was discharged from the hospital yesterday. Pt's new medication is Eliquis. Pt had normal breakfast this morning, per . Denies hx of pacemaker. - History Of Current Complaint Chief Complaint: EDDizziness Stated Complaint: DIZZY Hx Obtained From: Patient Onset/Duration: Suddenly Timing: Hours Severity Currently: Moderate Character: Lightheaded, Dizzy Aggravating Factor(s): Nothing Alleviating Factor(s): Nothing Associated Signs And Symptoms: Positive: Nausea, Diaphoresis, Visual Changes - Allergies/Home Medications Allergies/Adverse Reactions: Allergies Allergy/AdvReac Type Severity Reaction Status Date / Time No Known Allergies Allergy Verified 06/17/17 13:27 PMH/Surg Hx/FS Hx/Imm Hx Endocrine/Hematology History: Denies: Hx Diabetes, Hx Thyroid Disease Cardiovascular History: Reports: Hx Angina, Hx Congestive Heart Failure - pt states, Hx Coronary Artery Disease - 2 STENTS, 05/2013, Hx Hypertension - TREATED , Other Cardiovascular Problems/Disorders - SARCOID Denies: Hx Pacemaker/ICD Respiratory History: Reports: Other Respiratory Problems/Disorders - Hx OF Sarcoidosis Denies: Hx Asthma, Hx Chronic Obstructive Pulmonary Disease (COPD) GI History: Reports: Other GI Disorders - hernia, left side Denies: Hx Ulcer History: Reports: Hx Benign Prostatic Hyperplasia, Hx Kidney Stones, Hx Renal Disease - carcinoma, Other Problems/Disorders - 195SURGERY, BLOCKED URETER, prostate cancer Denies: Hx Dialysis Musculoskeletal History: Denies: Hx Arthritis, Hx Osteoporosis Sensory History: Reports: Hx Contacts or Glasses - not with patient, Hx Hearing Aid - DOES NOT WEAR OFTEN Opthamlomology History: Reports: Hx Contacts or Glasses - not with patient Psychiatric History: Denies: Hx Panic Disorder - Cancer History Cancer Type, Location and Year: Kidney CA. prostate CA. lymphoma Hx Chemotherapy: No Hx Radiation Therapy: Yes - 40 TREATMENTS TO PROSTATE Hx Palliative Cancer Treatment: No - Surgical History Surgery Procedure, Year, and Place: 9 Correction of blocked ureter at 17yrs old. 1964 TONSILLECTOMY. FALL 2013 x 3 Prostate biopsy [facility] [place]. 2011 LEFT ING.hernia repair [facility]. 05/2013 CARDIAC STENTSx2 [facility] Right nephrectomy Hx Anesthesia Reactions: No Infectious Disease History: No Infectious Disease History: Denies: Hx Clostridium Difficile, Hx Hepatitis, Hx Human Immunodeficiency Virus (HIV), Hx of Known/Suspected MRSA, Hx Shingles, Hx Tuberculosis, Hx Known/ Suspected VRE, Hx Known/Suspected VRSA, History Other Infectious Disease, Traveled Outside the in Last 30 Days - Family History Known Family History: Positive: Hypertension - Social History Alcohol Use: None Hx Substance Use: No Substance Use Type: Reports: None Hx Tobacco Use: No Smoking Status (MU): Never Smoked Tobacco Have You Smoked in the Last Year: No Review of Systems Constitutional: Other - clammy Negative: Fever, Chills Eyes: Other - visual changes Negative: Chest Pain Positive: Nausea. Negative: Vomiting, Diarrhea, Other - melena, bloody stools Neurological: Other - POS: dizziness, lightheadedness Negative: Syncope All Other Systems Reviewed And Are Negative: Yes Physical Exam - Summary Physical Exam Summary: General: well-appearing, no pain distress. Mildly confused. Skin: warm, color reflects adequate perfusion, dry Head: normal Eyes: EOMI, RAINER ENT: normal Neck: supple, nontender Respiratory: CTA, breath sounds present Cardiovascular: RRR Abdomen: soft, nontender Bowel: present Musculoskeletal: normal, strength/ROM intact Neurological: sensory/motor intact, alert but mildly confused. Slow to respond. Psychological: affect/mood appropriate Triage Information Reviewed: Yes Vital Signs On Initial Exam: Initial Vitals Temp Pulse Resp BP Pulse Ox 98.2 F 66 18 147/83 97 06/22/17 09:42 06/22/17 09:42 06/22/17 09:42 06/22/17 09:42 06/22/17 09:42 Vital Signs Reviewed: Yes - [place] Coma Scale Best Eye Response: 4 - Spontaneous Best Motor Response: 6 - Obeys Commands Best Verbal Response: 4 - Confused Coma Scale Total: 14 Diagnostics - Vital Signs Vital Signs Temp Pulse Resp BP Pulse Ox 06/22/17 09:42 98.2 F 66 18 147/83 97 - Laboratory Lab Results: Lab Results 06/22/17 06/22/17 06/22/17 Range/Units 11:33 11:33 11:33 WBC (3.5-10.8) 10^3/ul RBC (4.0-5.4) 10^6/ul Hgb (14.0-18.0) g/dl Hct (42-52) % MCV (80-94) fL MCH (27-31) pg MCHC (31-36) g/dl RDW (10.5-15) % Plt Count (150-450) 10^3/ul MPV (7.4-10.4) um3 Neut % (Auto) (38-83) % Lymph % (Auto) (25-47) % [place] % (Auto) (1-9) % Eos % (Auto) (0-6) % Baso % (Auto) (0-2) % Absolute Neuts (auto) (1.5-7.7) 10^3/ul Absolute Lymphs (auto) (1.0-4.8) 10^3/ul Absolute Monos (auto) (0-0.8) 10^3/ul Absolute Eos (auto) (0-0.6) 10^3/ul Absolute Basos (auto) (0-0.2) 10^3/ul Absolute Nucleated RBC 10^3/ul Nucleated RBC % INR (Anticoag Therapy) 1.19 H (0.77-1.02) APTT 36.0 (26.0-36.3) seconds D-Dimer, Quantitative 324 H (Less Than 230) ng/mL Carbon Monoxide Screen (<4.0) % Sodium 135 (133-145) mmol/L Potassium 4.6 (3.5-5.0) mmol/L Chloride 105 (101-111) mmol/L Carbon Dioxide 27 (22-32) mmol/L Anion Gap 3 (2-11) mmol/L BUN 20 (6-24) mg/dL Creatinine 1.14 (0.67-1.17) mg/dL Est GFR ( Amer) 79.9 (>60) Est GFR (Non-Af Amer) 62.1 (>60) BUN/Creatinine Ratio 17.5 (8-20) Glucose 101 H (70-100) mg/dL Lactic Acid (0.5-2.0) mmol/L Calcium 9.2 (8.6-10.3) mg/dL Magnesium 2.1 (1.9-2.7) mg/dL Total Bilirubin 0.60 (0.2-1.0) mg/dL AST 19 (13-39) U/L ALT 16 (7-52) U/L Alkaline Phosphatase 88 (34-104) U/L Ammonia 34 (16-53) mol/L Total Creatine Kinase 52 (10-223) U/L CK-MB (CK-2) 3.7 (0.6-6.3) ng/mL Troponin I 0.00 (<0.04) ng/mL C-Reactive Protein 4.66 (< 5.00) mg/L B-Natriuretic Peptide 176 H ( - 100) pg/mL Total Protein 6.9 (6.4-8.9) g/dL Albumin 4.1 (3.2-5.2) g/dL Globulin 2.8 (2-4) g/dL Albumin/Globulin Ratio 1.5 (1-3) Lipase 31 (11.0-82.0) U/L TSH 6.88 H (0.34-5.60) mcIU/mL Acetaminophen < 15 mcg/mL Serum Alcohol < 10 (<10) mg/dL 06/22/17 06/22/17 06/22/17 Range/Units 11:33 11:33 11:33 WBC 6.7 (3.5-10.8) 10^3/ul RBC 5.30 (4.0-5.4) 10^6/ul Hgb 14.8 (14.0-18.0) g/dl Hct 45 (42-52) % MCV 84 (80-94) fL MCH 28 (27-31) pg MCHC 33 (31-36) g/dl RDW 15 (10.5-15) % Plt Count 179 (150-450) 10^3/ul MPV 8 (7.4-10.4) um3 Neut % (Auto) 63.7 (38-83) % Lymph % (Auto) 21.3 L (25-47) % [place] % (Auto) 11.2 H (1-9) % Eos % (Auto) 2.7 (0-6) % Baso % (Auto) 1.1 (0-2) % Absolute Neuts (auto) 4.3 (1.5-7.7) 10^3/ul Absolute Lymphs (auto) 1.4 (1.0-4.8) 10^3/ul Absolute Monos (auto) 0.8 (0-0.8) 10^3/ul Absolute Eos (auto) 0.2 (0-0.6) 10^3/ul Absolute Basos (auto) 0.1 (0-0.2) 10^3/ul Absolute Nucleated RBC 0 10^3/ul Nucleated RBC % 0 INR (Anticoag Therapy) (0.77-1.02) APTT (26.0-36.3) seconds D-Dimer, Quantitative (Less Than 230) ng/mL Carbon Monoxide Screen < 4 (<4.0) % Sodium (133-145) mmol/L Potassium (3.5-5.0) mmol/L Chloride (101-111) mmol/L Carbon Dioxide (22-32) mmol/L Anion Gap (2-11) mmol/L BUN (6-24) mg/dL Creatinine (0.67-1.17) mg/dL Est GFR ( Amer) (>60) Est GFR (Non-Af Amer) (>60) BUN/Creatinine Ratio (8-20) Glucose (70-100) mg/dL Lactic Acid 0.7 (0.5-2.0) mmol/L Calcium (8.6-10.3) mg/dL Magnesium (1.9-2.7) mg/dL Total Bilirubin (0.2-1.0) mg/dL AST (13-39) U/L ALT (7-52) U/L Alkaline Phosphatase (34-104) U/L Ammonia (16-53) mol/L Total Creatine Kinase (10-223) U/L CK-MB (CK-2) (0.6-6.3) ng/mL Troponin I (<0.04) ng/mL C-Reactive Protein (< 5.00) mg/L B-Natriuretic Peptide ( - 100) pg/mL Total Protein (6.4-8.9) g/dL Albumin (3.2-5.2) g/dL Globulin (2-4) g/dL Albumin/Globulin Ratio (1-3) Lipase (11.0-82.0) U/L TSH (0.34-5.60) mcIU/mL Acetaminophen mcg/mL Serum Alcohol (<10) mg/dL Result Diagrams: 06/22/17 11:33 06/22/17 11:33 Lab Statement: Any lab studies that have been ordered have been reviewed, and results considered in the medical decision making process. - Radiology Chest XR Xray Interpretation: No Acute Changes - IMPRESSION: No active cardiopulmonary disease is noted. Dr. Julian has reviewed this radiology report. Radiology Interpretation Completed By: Radiologist - CT Brain CT CT Interpretation: No Acute Changes - IMPRESSION: No intracranial mass or hemorrhage is onted. Dr. Julian has reviewed this radiology report. CT Interpretation Completed By: Radiologist - EKG 09:48 Cardiac Rate: NL EKG Rhythm: Sinus Rhythm - at 61 bpm Ectopy: None EKG Interpretation: LVH EKG Comparison: No Significant Change - similar to prior EKG on 06/20/17 at 16: 06. Re-Evaluation - Re-Evaluation First Eval Re-Evaluation Time: 13:20 Comment: I reviewed XR, CT and lab results with the pt and . Dizzy Course/Dx - Course Course Of Treatment: Medications reviewed. Allergies noted. Chest XR is negative. Brain CT is negative. Discussed results with patient and family. Patient feels the Sx are due to anxiety and requests an anxiety Rx. I wrote for xanax 0.5mg #5. Patient declines admission. I advised he return if worse or any questions or concerns. F/U PMD and Cardiology. - Diagnoses Provider Diagnoses: Dizziness, Lightheaded, Anxiety Discharge - Discharge Plan Condition: Stable Disposition: HOME Prescriptions: ALPRAZolam TAB* [Xanax TAB*] 0.5 mg PO Q8H PRN #5 tab MDD 3 PRN Reason: Anxiety Patient Education Materials: Lightheadedness (ED), Dizziness (ED), Anxiety (ED) Referrals: Elías Collado MD [Medical Doctor] - Silvio Laurent [Primary Care Provider] - Additional Instructions: FOLLOW UP WITH YOUR DOCTOR. RETURN TO THE EMERGENCY DEPARTMENT FOR ANY WORSENING OF YOUR CONDITION OR QUESTIONS OR CONCERNS. The documentation as recorded by the Demetrius anguiano Angela accurately reflects the service I personally performed and the decisions made by me, Jovon Julian MD.
== END 2017-06-22 13:53 | disposition home or self-care (01) ==
LOC: ED 09:39
DX: R42 Dizziness and giddiness (principal); F41.9 Anxiety disorder, unspecified; R55 Syncope and collapse; I11.0 Hypertensive heart disease with heart failure; I50.9 Heart failure, unspecified; I20.9 Angina pectoris, unspecified; D86.9 Sarcoidosis, unspecified; R94.31 Abnormal electrocardiogram [ECG] [EKG]
CPT/HCPCS: 36415; 70450; 71045; 80053; 80320; 80329; 82140; 82375; 82550; 82553; 83605; 83690; 83735; 83880; 84443; 84484; 85025; 85379; 85610; 85730; 86140; 93005; 99282; A9270-GY; G0480

== ENCOUNTER 2018-01-16 08:33 | Emergency (ER) | payer MEDICARE ==
--- OUTSIDE RECORDS SUMMARY | 2018-01-16 08:40 | XMS REPORT ---
:1940 External Reference #:[id number] Author Organization [facility] Address [address] [address] Phone [phone] Care Team Providers Name Role Phone Silvio Laurent PA Care Team Information Rail Track Layer Unavailable Payers Type Date Identification Numbers Payment Provider Subscriber Medicare Primary Effective: Policy Number: Medicare Emil Chopraor 2005 [id number] PayID: [id number] [address] [place] [address] [facility] Policy Number: [id number] [facility] Healthcare Options Emil Mitchell Signor PayID: [id number] [address] [place] [address] Problems Date Description Provider Status Onset: 07/13/2017 Atrial fibrillation Silvio Laurent PA Active Onset: 07/09/2010 Benign essential hypertension César Corona MD Active Onset: 07/09/2010 Coronary arteriosclerosis César Corona MD Active Note: S/P angioplasty 2013 Onset: 07/19/2011 Pure hypercholesterolemia César Corona MD Active Onset: 05/09/2013 Benign prostatic hypertrophy with Heydi Dubon MD Active outflow obstruction Onset: 05/10/2013 Hearing loss Heydi Dubon MD Active Onset: 02/13/2014 Adenocarcinoma of prostate Heydi Dubon MD Active Note: s/p Lupron and radiation 2013 Onset: 06/23/2014 Renal cell carcinoma Heydi Dubon MD Active Note: s/p R Nephrectomy 2014 Onset: 01/15/2015 Impaired fasting glycaemia Heydi Dubon MD Active Onset: 12/20/2016 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 There were 6 boys and 6 girls Order Patient is the third of twelve children : (1950) (age First Sister due to Heart Valve problems 2 Years) Disease Social History Type Date Description Comments Marital Status Occupation [employer] Cigarette Use Never Smoked Cigarettes ETOH Use Denies alcohol use Smoking Patient has never smoked Daily Caffeine Consumes on average 1 cup of tea per day Daily Caffeine Consumes on average 1 soda per day Allergies, Adverse Reactions, Alerts Date Description Reaction Status Severity Comments 10/19/2004 NKDA active Medications Medication Date Status Form Strength Qnty SIG Indications Ordering Provider Elbow 11/15/ Active Misc 2unit Wear at M70.22 Eliel Support/Neopren 2017 s all time Taylor e Medium except MD Zeus shower for next 4-6weeks. Lisinopril 10/13/ Active Tablets 10mg 90tab 1 by I10 Eliel, 2017 s mouth Taylor every day MD Zeus Eliquis 06/27/ Active Tablets 5mg 1 by I48.0 Eliel 2017 mouth Taylor twice a MD Zeus day Simvastatin 01/06/ Active Tablets 40mg 90tab Take One E78.2 Eliel, 2015 s Tablet By Taylor Melvin Schulz MD Every Day Metoprolol 07/15/ Active Tablets ER 25mg 90tab 1 by I10 Eliel, Succinate ER 2014 24HR s mouth Taylor every day MD Zeus Aspirin 10/19/ Active Chewtabs 81mg 1 PO qd I25.10 Trabout, 2004 MD César Sulfamethoxazol 12/20/ Hx Tablets 800-160mg 30tab 1 by R41.0 jai Julian/Trimethoprim 2017 - s mouth Taylor DS 01/04/ twice a MD Zeus 2017 day Azithromycin 09/28/ Hx Tablets 500mg 5tabs 1 by J15.9 Eliel, 2016 - mouth Taylor 10/03/ every day MD Zeus 2016 Proair HFA 09/28/ Hx Aerosol 108(90Base 8.500 2 p four J15.9 Macadam, 2017 - ) mcg/Act gm times a Taylor 10/05/ day as MD Zeus 2017 needed cough, wheeze Fluticasone 09/20/ Hx Suspension 50mcg/Act 16uni two J01.00 Eliel Propionate 2017 - ts sprays in Taylor 09/28/ each MD Zeus 2017 nostril every day Amoxicillin 09/20/ Hx Tablets 500mg 10tab 500 mg J01.00 Eliel, 2017 - s every 12 Taylor 09/28/ hours x 5 MD Zeus 2017 days Benzonatate 09/20/ Hx Capsules 100mg 30cap 1 capsule J01.00 Eliel 2017 - s 3 x time Taylor 09/28/ daily as MD Zeus 2017 needed for cough. Amlodipine 07/15/ Hx Tablets 5mg 90tab 1/2 by I10 Thalia Julian 2014 - s mouth Taylor 07/13/ every day MD Zeus 2017 Lupron Depot 07/15/ Hx Kit 30mg 1 Im q C61 Jagdish 2014 - 4mo Heydi 09/20/ MD Winifred 2016 Clopidogrel 06/21/ Hx Tablets 75mg 90tab 1 po qd 414.01 Jagdish 2013 - s Heydi 06/13/ MD Winifred 2014 Lisinopril 06/21/ Hx Tablets 5mg 30tab 1 po qd Jagdish 2013 - s Heydi 06/21/ MD Winifred 2013 Lisinopril 06/21/ Hx Tablets 10mg 90tab take one 401.1 Jagdish 2013 - s tablet by Heydi 01/10/ mouth MD Winifred 2014 every day Nitroglycerin 05/09/ Hx Solution 5mg/ml 1unit 0.4mg I25.111 Jagdish 2013 - s (pls Heydi 12/20/ offer ot MD Winifred 2017 as spray or SL tablet whatever available ) SL q5min prn max dose=3, in case of angina I25.10 Meloxicam 06/07/2012 - Hx Tablets 15mg 30tabs take 1 Trabout, 09/18/2012 tablet daily MD César with food Cipro 12/22/2009 - Hx Tablets 500mg 30tabs 1 po bid 601.0 Trabout, 01/12/2010 MD César Flomax 12/22/2009 - Hx Capsules 0.4mg 30caps 1 po qd 788.41 Trabout, 03/06/2012 MD César 600.01 Metoprolol 12/03/2009 - Hx Tablets ER 50mg 90tabs Take One Tablet 401.1 Jagdish, Succinate ER 07/15/2014 24HR By Mouth Every Heydi Day MD Winifred Cialis 10/17/2009 - Hx Tablets 20mg 3tabs 1/2 -1 q36h prn 302.72 Trabout, 05/09/2013 anticipated César sexual activity MD Anusol-HC 11/20/2007 - Hx Cream 2.5% 1units apply bid and 569.42 Trabout, 01/15/2008 after bm's MD César Simvastatin 08/04/2007 - Hx Tablets 40mg 90tabs Take One Tablet E78.2 Lucio, 08/21/2015 By Mouth Every Arturo, PA Day E78.0 Doxazosin 07/14/2007 - Hx Tablets 4mg 30tabs 1 po qd 788.43 Trabout, Mesylate 08/04/2007 MD César Bactrim DS 05/11/2006 - Hx Tablets 160mg;8 20tabs 1 PO bid 461.0 Trabout, 07/14/2007 00 mg With MD César Increased Fluids Robitussin A-C 05/11/2006 - Hx Syrup 100mg;1 120ml 2 tsp qhs 461.0 Trabout, 07/14/2007 0mg/5ML prn cough MD César (PT will bring written script) Lovastatin 05/11/2006 - Hx Tablets 40mg 30tabs 1 po qd 272.2 Trabout, 07/14/2007 MD César Lisinopril 04/04/2006 - Hx Tablets 20mg 90tabs 1 po qd 401.1 Trabout, 07/14/2007 MD César Pravastatin 12/10/2005 - Hx Tablets 40mg 90tabs 1 po qd Trabout, 12/31/2005 MD César Zocor 10/19/2004 - Hx Tablets 40mg 90tabs 1 po qd Trabout, 05/11/2006 MD César Metoprolol 10/19/2004 - Hx Tablets 25mg 90tabs 1 po qd 401.1 Trabout, 12/03/2009 MD César Lisinopril 10/19/2004 - Hx Tablets 10mg 90tabs 1 po qd Trabout, 04/04/2006 MD César Vytorin 06/19/2004 - Hx Tablets 10mg;40 30tabs 1 po qd Trabout, 06/19/2004 mg MD César Vytorin 06/19/2004 - Hx Tablets 10/40mg 30tabs 1 po qd Trabout, 12/10/2005 MD César Immunizations CPT Code Status Date Vaccine Lot # [id number] Refused 12/21/2016 Influenza Vac, 3 Yrs & Older, Quadrivalent, Split, [place] Use 6[address]22 Refused 04/08/2016 Zoster (Zostavax) 98642 Refused 04/08/2016 Pneumococcal 23 Immunization Adult Or Immunosuppressed Patient 36770 Refused 04/08/2016 Immunization Td 7 Yrs Or Older 10467 Refused 04/08/2016 Prevnar 13 Pneumococal Conjugate Vaccine 94644 Refused 04/08/2016 Afluria Or Fluvirin Flu Vac Intramuscular Vital Signs Date Vital Result Comment 01/10/2018 Weight 185.25 lb Heart Rate 69 /min BP Systolic 110 mmHg BP Diastolic 66 mmHg Height 69 inches 5'9" BMI (Body Mass Index) 27.4 kg/m2 12/20/2017 Weight 191.25 lb Heart Rate 76 /min BP Systolic 172 mmHg BP Diastolic 110 mmHg Height 69 inches 5'9" BMI (Body Mass Index) 28.2 kg/m2 11/15/2017 Weight 188.50 lb Heart Rate 70 /min BP Systolic 137 mmHg BP Diastolic 85 mmHg Height 69 inches 5'9" BMI (Body Mass Index) 27.8 kg/m2 08/29/2017 Weight 194.38 lb Heart Rate 73 /min BP Systolic 118 mmHg BP Diastolic 76 mmHg Height 69 inches 5'9" BMI (Body Mass Index) 28.7 kg/m2 06/27/2017 Weight 191.00 lb Heart Rate 54 /min BP Systolic 136 mmHg BP Diastolic 81 mmHg Height 69 inches 5'9" BMI (Body Mass Index) 28.2 kg/m2 12/20/2016 Weight 192.38 lb Heart Rate 52 /min BP Systolic 126 mmHg BP Diastolic 63 mmHg Height 69 inches 5'9" BMI (Body Mass Index) 28.4 kg/m2 Urine Dipstick - Blood NEGATIVE Urine Dipstick - Protein NEGATIVE Urine Dipstick - Glucose NEGATIVE Urine Dipstick - Leukocytes TRACE Right Visual Acuity Distance 20/40 Left Visual Acuity Distance 20/30 Both 20/30 09/28/2016 Body Temperature 98.0 F Weight 198.38 lb Heart Rate 62 /min BP Systolic 135 mmHg BP Diastolic 66 mmHg Height 69 inches 5'9" BMI (Body Mass Index) 29.3 kg/m2 09/20/2016 Body Temperature 100.5 F Weight 199.38 lb Heart Rate 80 /min BP Systolic 136 mmHg BP Diastolic 72 mmHg Height 69 inches 5'9" BMI (Body Mass Index) 29.4 kg/m2 08/12/2016 Weight 203.12 lb Heart Rate 59 /min BP Systolic 128 mmHg BP Diastolic 65 mmHg Height 69 inches 5'9" BMI (Body Mass Index) 30.0 kg/m2 04/08/2016 Weight 200.00 lb Heart Rate 59 /min BP Systolic 130 mmHg BP Diastolic 74 mmHg Height 69 inches 5'9" BMI (Body Mass Index) 29.5 kg/m2 Urine Dipstick - Blood NEGATIVE Urine Dipstick - Protein NEGATIVE Urine Dipstick - Glucose NEGATIVE Urine Dipstick - Leukocytes 1+ Right Visual Acuity Distance 20/50 Left Visual Acuity Distance 20/30 Both 20/20 01/07/2016 Weight 196.12 lb Heart Rate 57 /min BP Systolic 140 mmHg BP Diastolic 69 mmHg Height 69 inches 5'9" BMI (Body Mass Index) 29.0 kg/m2 06/17/2015 Weight 202.50 lb Heart Rate 64 /min BP Systolic 137 mmHg BP Diastolic 71 mmHg Height 69 inches 5'9" BMI (Body Mass Index) 29.9 kg/m2 02/28/2015 Body Temperature 97.8 F Weight 198.50 lb Heart Rate 54 /min BP Systolic 149 mmHg BP Diastolic 75 mmHg Height 69 inches 5'9" BMI (Body Mass Index) 29.3 kg/m2 01/14/2015 Weight 198.25 lb Heart Rate 59 /min BP Systolic 135 mmHg BP Diastolic 72 mmHg Height 69 inches 5'9" BMI (Body Mass Index) 29.3 kg/m2 Urine Dipstick - Blood NEGATIVE Urine Dipstick - Protein NEGATIVE Urine Dipstick - Glucose NEGATIVE Urine Dipstick - Leukocytes TRACE Right Visual Acuity Distance 20/20 Left Visual Acuity Distance 20/25 Both 20/20 07/15/2014 Weight 189.25 lb Heart Rate 61 /min BP Systolic 163 mmHg LEFT arm BP Diastolic 72 mmHg LEFT arm BP Systolic Recheck 155 mmHg RIGHT arm BP Diastolic Recheck 79 mmHg RIGHT arm Height 69 inches 5'9" BMI (Body Mass Index) 27.9 kg/m2 06/20/2014 Weight 195.00 lb Heart Rate 60 /min BP Systolic 119 mmHg BP Diastolic 67 mmHg Height 69 inches 5'9" BMI (Body Mass Index) 28.8 kg/m2 02/18/2014 Weight 189.00 lb Heart Rate 59 /min BP Systolic 142 mmHg BP Diastolic 68 mmHg Height 69 inches 5'9" BMI (Body Mass Index) 27.9 kg/m2 11/19/2013 Weight 188.00 lb Heart Rate 54 /min BP Systolic 116 mmHg BP Diastolic 66 mmHg Height 69 inches 5'9" BMI (Body Mass Index) 27.8 kg/m2 10/29/2013 Weight 187.50 lb Heart Rate 58 /min BP Systolic 143 mmHg BP Diastolic 64 mmHg 08/09/2013 Weight 195.00 lb Heart Rate 56 /min BP Systolic 110 mmHg BP Diastolic 63 mmHg BP Systolic Recheck 122 mmHg BP Diastolic Recheck 63 mmHg 06/21/2013 Weight 195.00 lb Heart Rate 56 /min BP Systolic 130 mmHg BP Diastolic 73 mmHg 05/09/2013 Weight 193.00 lb Heart Rate 64 /min BP Systolic 136 mmHg BP Diastolic 78 mmHg Height 69 inches 5'9" BMI (Body Mass Index) 28.5 kg/m2 03/19/2013 Weight 193.00 lb Heart Rate 60 /min BP Systolic 129 mmHg BP Diastolic 60 mmHg 09/18/2012 Weight 194.00 lb Heart Rate 56 /min BP Systolic 120 mmHg BP Diastolic 70 mmHg Height 69 inches 5'9" BMI (Body Mass Index) 28.6 kg/m2 Urine Dipstick - Blood NEGATIVE Urine Dipstick - Protein NEGATIVE Urine Dipstick - Glucose NEGATIVE 07/12/2012 Weight 199.00 lb Heart Rate 59 /min BP Systolic 150 mmHg BP Diastolic 74 mmHg 06/07/2012 Weight 202.00 lb Heart Rate 63 /min BP Systolic 136 mmHg BP Diastolic 77 mmHg 03/06/2012 Weight 195.00 lb Heart Rate 62 /min BP Systolic 120 mmHg BP Diastolic 68 mmHg 10/18/2011 Weight 196.00 lb Heart Rate 64 /min BP Systolic 143 mmHg BP Diastolic 72 mmHg 07/19/2011 Weight 196.00 lb Heart Rate 80 /min BP Systolic 130 mmHg BP Diastolic 67 mmHg Height 69 inches 5'9" BMI (Body Mass Index) 28.9 kg/m2 Urine Dipstick - Blood NEGATIVE Urine Dipstick - Protein NEGATIVE Urine Dipstick - Glucose NEGATIVE 04/01/2011 Body Temperature 97.8 F Weight 189.00 lb Heart Rate 48 /min BP Systolic 120 mmHg BP Diastolic 71 mmHg 01/18/2011 Weight 183.00 lb Heart Rate 55 /min BP Systolic 118 mmHg BP Diastolic 70 mmHg 07/13/2010 Weight 196.00 lb Heart Rate 60 /min BP Systolic 127 mmHg BP Diastolic 73 mmHg 01/12/2010 Weight 186.00 lb Heart Rate 50 /min BP Systolic 120 mmHg BP Diastolic 62 mmHg 12/22/2009 Body Temperature 97.8 F Weight 186.00 lb Heart Rate 55 /min BP Systolic 144 mmHg BP Diastolic 66 mmHg Urine Dipstick - Blood NEGATIVE Urine Dipstick - Protein NEGATIVE Urine Dipstick - Glucose NEGATIVE 10/17/2009 Weight 188.00 lb Heart Rate 55 /min BP Systolic 134 mmHg BP Diastolic 68 mmHg 07/14/2009 Weight 196.00 lb Heart Rate 68 /min BP Systolic 145 mmHg BP Diastolic 79 mmHg Height 68.5 inches 5'8.50" BMI (Body Mass Index) 29.4 kg/m2 01/13/2009 Weight 185.00 lb Heart Rate 60 /min BP Systolic 150 mmHg BP Diastolic 80 mmHg 07/15/2008 Weight 189.00 lb Heart Rate 53 /min BP Systolic 143 mmHg BP Diastolic 80 mmHg 01/15/2008 Weight 183.00 lb Heart Rate 56 /min BP Systolic 123 mmHg BP Diastolic 69 mmHg 11/20/2007 Body Temperature 98.3 F Weight 180.50 lb Heart Rate 58 /min BP Systolic 108 mmHg BP Diastolic 61 mmHg 08/04/2007 Weight 192.00 lb Heart Rate 64 /min BP Systolic 119 mmHg BP Diastolic 71 mmHg 07/14/2007 Weight 192.00 lb Heart Rate 71 /min BP Systolic 155 mmHg BP Diastolic 82 mmHg Urine Dipstick - Blood NEGATIVE Urine Dipstick - Protein NEGATIVE Urine Dipstick - Glucose NEGATIVE 05/11/2006 Body Temperature 97.4 F Weight 189.00 lb Heart Rate 66 /min BP Systolic 150 mmHg BP Diastolic 76 mmHg 04/04/2006 Weight 186.00 lb Heart Rate 50 /min BP Systolic 146 mmHg BP Diastolic 88 mmHg 12/10/2005 Weight 182.00 lb Heart Rate 54 /min BP Systolic 152 mmHg BP Diastolic 78 mmHg 09/14/2005 BP Systolic 140 mmHg BP Diastolic 74 mmHg 09/10/2005 Weight 180.00 lb Heart Rate 64 /min BP Systolic 158 mmHg BP Diastolic 84 mmHg 02/17/2005 Weight 182.00 lb Heart Rate 86 /min BP Systolic 147 mmHg BP Diastolic 72 mmHg 12/18/2004 Body Temperature 97.1 F Weight 178.00 lb Heart Rate 70 /min BP Systolic 150 mmHg BP Diastolic 72 mmHg 10/19/2004 Weight 181.00 lb Heart Rate 53 /min BP Systolic 123 mmHg BP Diastolic 70 mmHg Results Test Date Test Result H/L Range Note Laboratory test finding 01/10/2018 Lipase <pending> Laboratory test finding 01/03/2018 Fit(Fecal Occult Negative Negative Blood) CBC with Auto Diff-fcmg 12/20/2017 WBC 9.1 K/uL 4.1-11.0 RBC 5.65 M/uL 4.60-6.10 Hemoglobin 15.9 gm/dL 13.5-18.0 Hematocrit 48.5 % 41.0-53.0 MCV 85.9 fL 80.0-97.0 MCH 28.1 pg 27.0-32.0 MCHC 32.8 g/dL 32.0-36.0 RDW 15.0 % High 11.5-14.5 PLT Count 177 K/ul 140-400 MPV 8.7 FL 7.1-10.7 Neutrophil 49.5 % 35.0-75.0 Lymphocyte 32.1 % 16.0-52.0 Monocyte 10.1 % High 2.0-10.0 Eosinophil 7.5 % High 0.0-5.0 Basophil 0.8 % 0.0-4.0 Abs Neutrophils 4.5 K/uL 2.1-8.0 Abs Lymphocytes 2.9 K/uL 0.8-5.5 Abs Monocytes 0.9 K/uL 0.1-1.0 Abs Eosinophils 0.7 K/uL High 0.0-0.5 Abs Basophils 0.1 K/uL 0.0-0.3 Comprehensive Met Panel-FCMG 12/20/2017 Sodium 144 mmol/L 135-146 1 Potassium 5.1 mmol/L 3.5-5.2 Chloride# 106 mmol/L 97-110 2 Carbon Dioxide 28 mmol/L 24-34 Glucose 85 mg/dL 70-105 BUN 18 mg/dL 6-26 Creatinine 1.2 mg/dL 0.5-1.4 Calcium 9.3 mg/dL 8.5-10.2 Total Protein 6.5 g/dL 6.0-8.0 Albumin 4.2 g/dL 3.6-4.9 Globulin 2.3 g/dL 2.0-3.5 A/G Ratio 1.8 Ratio 1.0-2.2 Total Bilirubin 0.8 mg/dL 0.1-1.3 Alkaline Phosphatase 90 U/L 24-140 Alt 26 U/L 3-42 Ast 23 U/L 8-42 Connie Egfr >60 >60 3 Non Connie Egfr >60 >60 4 Anion Gap 10 mmol/L 5-15 5 Laboratory test finding 12/20/2017 Urine Culture Microbiology res <SEE NOTE > 6 Magnesium 2.0 mg/dL 1.5-2.7 Lipid 12/20/2017 Cholesterol 157 mg/dL 50-199 Triglycerides 142 mg/dL 30-200 HDL 36 mg/dL 29-71 7 Chol/ HDL Ratio 4.4 ratio 4.0-6.7 VLDL 28 mg/dL 2-29 LDL (Calc) 93 mg/dL 20-99 8 Laboratory test finding 12/20/2017 PSA 0.110 ng/mL 0.000-4.000 9 Comprehensive Met Panel-[facility]G 12/20/2016 Sodium 142 mmol/L 135-146 10 Potassium 5.7 No visible h <SEE NOTE> mmol/L High 3.5-5.2 11 Chloride# 107 mmol/L 97-110 12 Carbon Dioxide 29 mmol/L 24-34 Glucose 95 mg/dL 70-105 BUN 14 mg/dL 6-26 Creatinine 1.1 mg/dL 0.5-1.4 Calcium 9.5 mg/dL 8.5-10.2 Total Protein 6.7 g/dL 6.0-8.0 Albumin 4.3 g/dL 3.6-4.9 Globulin 2.4 g/dL 2.0-3.5 A/G Ratio 1.8 Ratio 1.0-2.2 Total Bilirubin 0.4 mg/dL 0.1-1.3 Alkaline Phosphatase 84 U/L 24-140 Alt 10 U/L 3-42 Ast 15 U/L 8-42 Connie Egfr >60 >60 13 Non Connie Egfr >60 >60 14 Anion Gap 6 mmol/L Low 7-16 15 Lipid 12/20/2016 Cholesterol 162 mg/dL 50-199 Triglycerides 174 mg/dL 30-200 HDL 38 mg/dL - 16 Chol/ HDL Ratio 4.3 ratio 4.0-6.7 VLDL 35 mg/dL High 2-29 LDL (Calc) 90 mg/dL 17 Comprehensive Metabolic (CMP) 04/08/2016 Sodium 139 mmol/L 134-142 Potassium 5.2 mmol/L 3.5-5.2 Chloride 108 mmol/L 97-109 Carbon Dioxide 27 mmol/L 24-34 Glucose 111 mg/dL High 70-105 BUN 20 mg/dL 6-26 Creatinine 1.1 mg/dL 0.5-1.4 Calcium 8.9 mg/dL 8.5-10.2 Total Protein 6.5 g/dL 6.0-8.0 Albumin 4.1 g/dL 3.6-4.9 Globulin 2.4 g/dL 2.0-3.5 A/G Ratio 1.7 Ratio 1.0-2.2 Total Bilirubin 0.6 mg/dL 0.1-1.3 Alkaline Phosphatase 81 U/L 24-140 Alt 14 U/L 3-42 Ast 17 U/L 8-42 Anion Gap 9 mmol/L 6-14 Connie Egfr >60 >60 18 Non Connie Egfr >60 >60 19 Laboratory test finding 04/08/2016 TSH 3.58 uIU/mL 0.35-4.94 PSA 0.020 ng/mL 0.000-4.000 20 Lipid 04/08/2016 Cholesterol 163 mg/dL 50-199 Triglycerides 143 mg/dL 30-200 HDL 39 mg/dL 21 Chol/ HDL Ratio 4.2 ratio 4.0-6.7 VLDL 29 mg/dL 2-29 LDL (Calc) 95 mg/dL 22 CBC With Auto Diff 04/08/2016 WBC 7.0 K/uL 4.1-11.0 RBC 4.84 M/uL 4.60-6.10 Hemoglobin 13.9 gm/dL 13.5-18.0 Hematocrit 41.3 % 41.0-53.0 MCV 85.4 fL 80.0-97.0 MCH 28.7 pg 27.0-32.0 MCHC 33.6 g/dL 32.0-36.0 RDW 14.1 % 11.5-14.5 PLT Count 183 K/ul 140-400 Neutrophil 54.5 % 35.0-75.0 Lymphocyte 29.8 % 16.0-52.0 Monocyte 11.4 % High 2.0-10.0 Eosinophil 3.5 % 0.0-5.0 Basophil 0.8 % 0.0-4.0 Abs Neutrophils 3.8 K/uL 2.1-8.0 Abs Lymphocytes 2.1 K/uL 0.8-5.5 Abs Monocytes 0.8 K/uL 0.1-1.0 Abs Eosinophils 0.2 K/uL 0.0-0.5 Abs Basophils 0.1 K/uL 0.0-0.3 CBC With Auto Diff 01/14/2015 WBC 5.8 K/uL 4.1-11.0 RBC 4.75 M/uL 4.60-6.10 Hemoglobin 13.4 gm/dL Low 13.5-18.0 Hematocrit 41.0 % 41.0-53.0 MCV 86.4 fL 80.0-97.0 MCH 28.2 pg 27.0-32.0 MCHC 32.7 g/dL 32.0-36.0 RDW 13.7 % 11.5-14.5 PLT Count 164 K/ul 140-400 Comprehensive Metabolic (CMP) 01/14/2015 Sodium 140 mmol/L 134-142 Potassium 5.0 mmol/L 3.5-5.2 Chloride 106 mmol/L 97-109 Carbon Dioxide 29 mmol/L 24-34 Glucose 132 mg/dL High 70-105 BUN 21 mg/dL 6-26 Creatinine 1.1 mg/dL 0.5-1.4 Calcium 9.0 mg/dL 8.5-10.2 Total Protein 6.3 g/dL 6.0-8.0 Albumin 4.0 g/dL 3.6-4.9 Globulin 2.3 g/dL 2.0-3.5 A/G Ratio 1.7 Ratio 1.0-2.2 Total Bilirubin 0.6 mg/dL 0.1-1.3 Alkaline Phosphatase 86 U/L 24-140 Alt 12 U/L 3-42 Ast 15 U/L 8-42 Anion Gap 10 mmol/L 6-14 Connie Egfr >60 >60 23 Non Connie Egfr >60 >60 24 Lipid 01/14/2015 Cholesterol 160 mg/dL 50-199 Triglycerides 210 mg/dL High 30-200 HDL 33 mg/dL 29-71 25 Chol/ HDL Ratio 4.8 ratio 4.0-6.7 VLDL 42 mg/dL High 2-29 LDL (Calc) 85 mg/dL 20-99 26 Laboratory test finding 01/14/2015 TSH 3.84 uIU/mL 0.35-4.94 Magnesium 1.9 mg/dL 1.5-2.7 PSA 0.050 ng/mL 0.000-4.000 27 Vitamin B12 296 pg/mL 180-914 Manual Differential 01/14/2015 Neutrophils 63 % 35-75 Band 3 % 0-11 Lymphocytes 21 % 16-52 Monocytes 9 % High 0-8 Eosinophils 2 % 0-5 Basophils 2 % 0-4 Platelet Estimate Normal Normal RBC Morphology Normal Normal Abs Neutrophils# 3.7 K/ul 1.8-7.7 Abs Lymphocytes# 1.2 K/ul 1.2-4.8 Abs Monocytes# 0.5 K/ul 0.0-0.8 Abs Eosinophils# 0.1 K/ul 0.0-0.5 Abs Basophils# 0.1 K/ul 0.0-0.3 Abs BandCells# 0.2 K/ul 0.0-1.2 Laboratory test finding 01/14/2015 Hemoglobin A1c 6.2 % High 4.1-5.9 Laboratory test finding 01/14/2015 B Natriuretic Pep 145 pg/mL High (0-100 ) 28 CBC With Auto Diff 07/15/2014 WBC 9.3 K/uL 4.1-11.0 29 RBC 4.78 M/uL 4.60-6.10 29 Hemoglobin 13.6 gm/dL 13.5-18.0 29 Hematocrit 41.5 % 41.0-53.0 29 MCV 86.7 fL 80.0-97.0 29 MCH 28.5 pg 27.0-32.0 29 MCHC 32.8 g/dL 32.0-36.0 29 RDW 14.0 % 11.5-14.5 29 PLT Count 451 K/ul High 140-400 29 Neutrophil 57.9 % 35.0-75.0 29 Lymphocyte 24.1 % 16.0-52.0 29 Monocyte 12.4 % High 2.0-10.0 29 Eosinophil 4.3 % 0.0-5.0 29 Basophil 1.3 % 0.0-4.0 29 Abs Neutrophils 5.4 K/uL 2.1-8.0 29 Abs Lymphocytes 2.2 K/uL 0.8-5.5 29 Abmon 1.2 K/uL High 0.1-1.0 29 Abs Eosinophils 0.4 K/uL 0.0-0.5 29 Abs Basophils 0.1 K/uL 0.0-0.3 29 Comprehensive Metabolic (CMP) 07/15/2014 Sodium 136 mmol/L 134-142 29 Potassium 5.6 No visible h <SEE NOTE> mmol/L High 3.5-5.2 29, 30 Chloride 101 mmol/L 97-109 29 Carbon Dioxide 30 mmol/L 24-34 29 Glucose 96 mg/dL 70-105 29 BUN 20 mg/dL 6-26 29 Creatinine 1.3 mg/dL 0.5-1.4 29 Calcium 9.5 mg/dL 8.5-10.2 29 Total Protein 6.8 g/dL 6.0-8.0 29 Albumin 4.2 g/dL 3.6-4.9 29 Globulin 2.6 g/dL 2.0-3.5 29 A/G Ratio 1.6 Ratio 1.0-2.2 29 Total Bilirubin 0.4 mg/dL 0.1-1.3 29 Alkaline Phosphatase 175 U/L High 24-140 29 Alt 45 U/L High 3-42 29 Ast 39 U/L 8-42 29 Anion Gap 11 mmol/L 6-14 29 Connie Egfr >60 >60 29, 31 Non Connie Egfr 56 Low >60 29, 32 Laboratory test finding 07/15/2014 Magnesium 2.4 mg/dL 1.5-2.7 29 PSA 0.880 ng/mL 0.000-4.000 29, 33 Laboratory test finding 07/15/2014 B Natriuretic Pep 137 pg/mL High (0-100 ) 29, 34 Rout Urine W/ Micro -RL 07/15/2014 Color YELLOW 29 Appearance CLEAR 29 Spec Grav Urine 1.014 (1.003-1.030) 29 PH Urine 5.5 (5.0-7.5) 29 Leuk Esterase NEGATIVE (Neg) 29 Nitrite Urine NEGATIVE (Neg) 29 Protein Urine NEGATIVE (Neg) 29 Glucose Urine NEGATIVE (Neg) 29 Ketone Urine NEGATIVE (Neg) 29 Urobilinogen 0.2 mg/dL (0-1.0) 29 Bilirubin Urine NEGATIVE (Neg) 29 Blood/HGB Urine NEGATIVE (Neg) 29 Urine WBC 0-2 [HPF] (0-5) 29 Urine RBC 0-2 [HPF] (0-2) 29, 35 Laboratory test finding 06/21/2014 Cytology Fluid Specimen SEE NOTE 36 , 37 Rout Urine W/ Micro -RL 06/21/2014 Color YELLOW 36 Appearance CLEAR 36 Spec Grav Urine 1.009 (1.003-1.030) 36 PH Urine 6.5 (5.0-7.5) 36 Leuk Esterase NEGATIVE (Neg) 36 Nitrite Urine NEGATIVE (Neg) 36 Protein Urine NEGATIVE (Neg) 36 Glucose Urine NEGATIVE (Neg) 36 Ketone Urine NEGATIVE (Neg) 36 Urobilinogen 0.2 mg/dL (0-1.0) 36 Bilirubin Urine NEGATIVE (Neg) 36 Blood/HGB Urine NEGATIVE (Neg) 36 Epithelial Cells NEGATIVE [HPF] (Neg) 36 Hyaline Casts 0.3 [LPF] (0-5) 36 Bacteria NEGATIVE [HPF] (Neg) 36 Urine WBC 0.4 [HPF] (0-8) 36 Urine RBC 0.4 [HPF] (0-3) 36, 38 Laboratory test finding 06/21/2014 Aptt 27.1 s (22.0-32.6) 36, 39 Protime 06/21/2014 PT 10.3 s (9.2-11.9) 36 Inr 0.97 36, 40 CBC With Auto Diff 06/20/2014 WBC 10.1 K/uL 4.1-11.0 41 RBC 4.90 M/uL 4.60-6.10 41 Hemoglobin 14.1 gm/dL 13.5-18.0 41 Hematocrit 41.5 % 41.0-53.0 41 MCV 84.8 fL 80.0-97.0 41 MCH 28.7 pg 27.0-32.0 41 MCHC 33.9 g/dL 32.0-36.0 41 RDW 13.8 % 11.5-14.5 41 PLT Count 201 K/ul 140-400 41 Neutrophil 57.0 % 35.0-75.0 41 Lymphocyte 26.8 % 16.0-52.0 41 Monocyte 11.6 % High 2.0-10.0 41 Eosinophil 3.7 % 0.0-5.0 41 Basophil 0.9 % 0.0-4.0 41 Abs Neutrophils 5.7 K/uL 2.1-8.0 41 Abs Lymphocytes 2.7 K/uL 0.8-5.5 41 Abmon 1.2 K/uL High 0.1-1.0 41 Abs Eosinophils 0.4 K/uL 0.0-0.5 41 Abs Basophils 0.1 K/uL 0.0-0.3 41 Comprehensive Metabolic (CMP) 06/20/2014 Sodium 140 mmol/L 134-142 41 Potassium 4.7 mmol/L 3.5-5.2 41 Chloride 104 mmol/L 97-109 41 Carbon Dioxide 28 mmol/L 24-34 41 Glucose 78 mg/dL 70-105 41 BUN 18 mg/dL 6-26 41 Creatinine 0.8 mg/dL 0.5-1.4 41 Calcium 9.4 mg/dL 8.5-10.2 41 Total Protein 6.5 g/dL 6.0-8.0 41 Albumin 4.4 g/dL 3.6-4.9 41 Globulin 2.1 g/dL 2.0-3.5 41 A/G Ratio 2.1 Ratio 1.0-2.2 41 Total Bilirubin 0.7 mg/dL 0.1-1.3 41 Alkaline Phosphatase 77 U/L 24-140 41 Alt 15 U/L 3-42 41 Ast 19 U/L 8-42 41 Anion Gap 13 mmol/L 6-14 41 Connie Egfr >60 >60 41, 42 Non Connie Egfr >60 >60 41, 43 Laboratory test finding 06/20/2014 Magnesium 2.0 mg/dL 1.5-2.7 41 Urinalysis- 02/18/2014 Color YELLOW 44 Appearance CLEAR 44 Spec Grav Urine 1.014 (1.003-1.030) 44 PH Urine 6.0 (5.0-7.5) 44 Leuk Esterase NEGATIVE (Neg) 44 Nitrite Urine NEGATIVE (Neg) 44 Protein Urine NEGATIVE (Neg) 44 Glucose Urine NEGATIVE (Neg) 44 Ketone Urine NEGATIVE (Neg) 44 Urobilinogen 0.2 mg/dL (0-1.0) 44 Bilirubin Urine NEGATIVE (Neg) 44 Blood/HGB Urine NEGATIVE (Neg) 44, 45 Laboratory test 02/18/2014 Ang Convert Enz <5 U/L Low 44, 46 finding BLD Laboratory test 02/18/2014 PSA 9.630 Results ve High 0.000-4.0 47 finding <SEE NOTE> ng/mL 00 Magnesium 2.0 mg/dL 1.5-2.7 Urine Culture Microbiology res <SEE NOTE> 48 Lipid 02/18/2014 Cholesterol 157 mg/dL 50-199 Triglycerides 100 mg/dL 30-200 HDL 36 mg/dL 29-71 49 Chol/ HDL Ratio 4.4 ratio 4.0-6.7 VLDL 20 mg/dL 2-29 LDL (Calc) 101 mg/dL High 20-99 50 Comprehensive Metabolic (CMP) 02/18/2014 Sodium 138 mmol/L 134-142 Potassium 4.8 mmol/L 3.5-5.2 Chloride 104 mmol/L 97-109 Carbon Dioxide 29 mmol/L 24-34 Glucose 93 mg/dL 70-105 BUN 16 mg/dL 6-26 Creatinine 0.9 mg/dL 0.5-1.4 Calcium 9.1 mg/dL 8.5-10.2 Total Protein 6.3 g/dL 6.0-8.0 Albumin 4.0 g/dL 3.6-4.9 Globulin 2.3 g/dL 2.0-3.5 A/G Ratio 1.7 Ratio 1.0-2.2 Total Bilirubin 0.6 mg/dL 0.1-1.3 Alkaline Phosphatase 76 U/L 24-140 Alt 14 U/L 3-42 Ast 17 U/L 8-42 Anion Gap 10 mmol/L 6-14 Connie Egfr >60 >60 51 Non Connie Egfr >60 >60 52 CBC With Auto Diff 02/18/2014 WBC 7.7 K/uL 4.1-11.0 RBC 5.25 M/uL 4.60-6.10 Hemoglobin 15.0 gm/dL 13.5-18.0 Hematocrit 45.4 % 41.0-53.0 MCV 86.4 fL 80.0-97.0 MCH 28.5 pg 27.0-32.0 MCHC 33.0 g/dL 32.0-36.0 RDW 13.8 % 11.5-14.5 PLT Count 193 K/ul 140-400 Neutrophil 46.5 % 35.0-75.0 Lymphocyte 34.6 % 16.0-52.0 Monocyte 11.9 % High 2.0-10.0 Eosinophil 6.1 % High 0.0-5.0 Basophil 0.9 % 0.0-4.0 Abs Neutrophils 3.6 K/uL 2.1-8.0 Abs Lymphocytes 2.7 K/uL 0.8-5.5 Abmon 0.9 K/uL 0.1-1.0 Abs Eosinophils 0.5 K/uL 0.0-0.5 Abs Basophils 0.1 K/uL 0.0-0.3 PSA Total And Free -RL 08/09/2013 PSA Total 9.9 NG/ML High (0.0-4.0) 44 PSA Free 1.0 NG/ML 44 PSA % Free 10 % 44, 53 Laboratory test finding 08/09/2013 TSH 5.47 uIU/mL 0.34-5.60 44 Vitamin B12 234 pg/mL 180-914 44 Magnesium 2.1 mg/dL 1.5-2.7 44 Lipid 08/09/2013 Cholesterol 162 mg/dL 50-199 44 Triglycerides 177 mg/dL 30-200 44 HDL 33 mg/dL 29-71 44, 54 Chol/ HDL Ratio 4.9 ratio 4.0-6.7 44 VLDL 35 mg/dL High 2-29 44 LDL (Calc) 94 mg/dL 20-99 44, 55 Comprehensive Metabolic (CMP) 08/09/2013 Sodium 140 mmol/L 134-142 44 Potassium 4.7 mmol/L 3.5-5.2 44 Chloride 106 mmol/L 97-109 44 Carbon Dioxide 31 mmol/L 24-34 44 Glucose 97 mg/dL 70-105 44 BUN 16 mg/dL 6-26 44 Creatinine 0.8 mg/dL 0.5-1.4 44 Calcium 9.1 mg/dL 8.5-10.2 44 Total Protein 6.3 g/dL 6.0-8.0 44 Albumin 4.0 g/dL 3.6-4.9 44 Globulin 2.3 g/dL 2.0-3.5 44 A/G Ratio 1.7 Ratio 1.0-2.2 44 Total Bilirubin 0.7 mg/dL 0.1-1.3 44 Alkaline Phosphatase 72 U/L 24-140 44 Alt 13 U/L 3-42 44 Ast 17 U/L 8-42 44 Anion Gap 8 mmol/L 6-14 44 Connie Egfr >60 >60 44, 56 Non Connie Egfr >60 >60 44, 57 CBC With Auto Diff 08/09/2013 WBC 8.1 K/uL 4.1-11.0 44 RBC 5.08 M/uL 4.60-6.10 44 Hemoglobin 14.5 gm/dL 13.5-18.0 44 Hematocrit 42.3 % 41.0-53.0 44 MCV 83.2 fL 80.0-97.0 44 MCH 28.6 pg 27.0-32.0 44 MCHC 34.4 g/dL 32.0-36.0 44 RDW 13.5 % 11.5-14.5 44 PLT Count 188 K/ul 140-400 44 Neutrophil 45.9 % 35.0-75.0 44 Lymphocyte 37.6 % 16.0-52.0 44 Monocyte 12.0 % High 2.0-10.0 44 Eosinophil 3.5 % 0.0-5.0 44 Basophil 1.0 % 0.0-4.0 44 Abs Neutrophils 3.7 K/uL 2.1-8.0 44 Abs Lymphocytes 3.0 K/uL 0.8-5.5 44 Abmon 1.0 K/uL 0.1-1.0 44 Abs Eosinophils 0.3 K/uL 0.0-0.5 44 Abs Basophils 0.1 K/uL 0.0-0.3 44 CBC With Auto Diff 03/19/2013 WBC 12.1 K/uL High 4.1-11.0 44 RBC 5.31 M/uL 4.60-6.10 44 Hemoglobin 15.0 gm/dL 13.5-18.0 44 Hematocrit 45.5 % 41.0-53.0 44 MCV 85.6 fL 80.0-97.0 44 MCH 28.3 pg 27.0-32.0 44 MCHC 33.0 g/dL 32.0-36.0 44 RDW 13.8 % 11.5-14.5 44 PLT Count 203 K/ul 140-400 44 Neutrophil 43.7 % 35.0-75.0 44 Lymphocyte 43.2 % 16.0-52.0 44 Monocyte 9.1 % 2.0-10.0 44 Eosinophil 3.0 % 0.0-5.0 44 Basophil 1.0 % 0.0-4.0 44 Abs Neutrophils 5.3 K/uL 2.1-8.0 44 Abs Lymphocytes 5.3 K/uL 0.8-5.5 44 Abmon 1.1 K/uL High 0.1-1.0 44 Abs Eosinophils 0.4 K/uL 0.0-0.5 44 Abs Basophils 0.1 K/uL 0.0-0.3 44 Laboratory test finding 03/19/2013 TSH 3.91 uIU/mL 0.34-5.60 44 Lipid 03/19/2013 Cholesterol 191 mg/dL 50-199 44 Triglycerides 198 mg/dL 30-200 44 HDL 38 mg/dL 29-71 44, 58 Chol/ HDL Ratio 5.0 ratio 4.0-6.7 44 VLDL 40 mg/dL High 2- 44 LDL (Calc) 113 mg/dL High 20-99 44, 59 Comprehensive Metabolic (CMP) 03/19/2013 Sodium 142 mmol/L 134-142 44 Potassium 5.1 mmol/L 3.5-5.2 44 Chloride 106 mmol/L 97-109 44 Carbon Dioxide 31 mmol/L 24-34 44 Glucose 120 mg/dL High 70-105 44 BUN 14 mg/dL 6-26 44 Creatinine 0.9 mg/dL 0.5-1.4 44 Calcium 9.1 mg/dL 8.5-10.2 44 Total Protein 6.4 g/dL 6.0-8.0 44 Albumin 4.3 g/dL 3.6-4.9 44 Globulin 2.1 g/dL 2.0-3.5 44 A/G Ratio 2.0 Ratio 1.0-2.2 44 Total Bilirubin 0.5 mg/dL 0.1-1.3 44 Alkaline Phosphatase 90 U/L 24-140 44 Alt 19 U/L 3-42 44 Ast 18 U/L 8-42 44 Anion Gap 10 mmol/L 6-14 44 Connie Egfr >60 >60 44, 60 Non Connie Egfr >60 >60 44, 61 Laboratory test finding 09/18/2012 TSH 2.65 uIU/mL 0.34-5.60 44 CRP-High 2.45 mg/L 0.00-9.90 44, 62 Lipid 09/18/2012 Cholesterol 162 mg/dL 50-199 44 Triglycerides 128 mg/dL 30-200 44 HDL 35 mg/dL - 44, 63 Chol/ HDL Ratio 4.6 ratio 4.0-6.7 44 VLDL 26 mg/dL 2-29 44 LDL (Calc) 101 mg/dL High 20-99 44, 64 CBC With Auto Diff 09/18/2012 WBC 10.2 K/uL 4.1-11.0 44 RBC 5.13 M/uL 4.60-6.10 44 Hemoglobin 14.7 gm/dL 13.5-18.0 44 Hematocrit 44.0 % 41.0-53.0 44 MCV 85.7 fL 80.0-97.0 44 MCH 28.6 pg 27.0-32.0 44 MCHC 33.4 g/dL 32.0-36.0 44 RDW 13.5 % 11.5-14.5 44 PLT Count 187 K/ul 140-400 44 Neutrophil 41.5 % 35.0-75.0 44 Lymphocyte 43.9 % 16.0-52.0 44 Monocyte 10.2 % High 2.0-10.0 44 Eosinophil 3.8 % 0.0-5.0 44 Basophil 0.6 % 0.0-4.0 44 Abs Neutrophils 4.2 K/uL 2.1-8.0 44 Abs Lymphocytes 4.5 K/uL 0.8-5.5 44 Abs Monocytes 1.0 K/uL 0.1-1.0 44 Abs Eosinophils 0.4 K/uL 0.0-0.5 44 Abs Basophils 0.1 K/uL 0.0-0.3 44 Comprehensive Metabolic (CMP) 09/18/2012 Sodium 141 mmol/L 134-142 44 Potassium 5.0 mmol/L 3.5-5.2 44 Chloride 107 mmol/L 97-109 44 Carbon Dioxide 32 mmol/L 24-34 44 Glucose 102 mg/dL 70-105 44 BUN 14 mg/dL 6-26 44 Creatinine 0.8 mg/dL 0.5-1.4 44 Calcium 9.0 mg/dL 8.5-10.2 44 Total Protein 6.2 g/dL 6.0-8.0 44 Albumin 4.0 g/dL 3.6-4.9 44 Globulin 2.2 g/dL 2.0-3.5 44 A/G Ratio 1.8 Ratio 1.0-2.2 44 Total Bilirubin 0.5 mg/dL 0.1-1.3 44 Alkaline Phosphatase 80 U/L 24-140 44 Alt 22 U/L 3-42 44 Ast 23 U/L 8-42 44 Anion Gap 7 mmol/L 6-14 44 Connie Egfr >60 >60 44, 65 Non Connie Egfr >60 >60 44, 66 PSA Total And Free -RL 07/12/2012 PSA Total 6.6 NG/ML High (0.0-4.0) PSA Free 0.7 NG/ML PSA % Free 11 % 67 Lipid 03/06/2012 Cholesterol 177 mg/dL 50-199 44 Triglycerides 196 mg/dL 30-200 44 HDL 32 mg/dL 29-71 44, 68 Chol/ HDL Ratio 5.5 ratio 4.0-6.7 44 VLDL 39 mg/dL High 2-29 44 LDL (Calc) 106 mg/dL 20-129 44, 69 Comprehensive Metabolic (CMP) 03/06/2012 Sodium 141 mmol/L 134-142 44 Potassium 4.3 mmol/L 3.5-5.2 44 Chloride 104 mmol/L 97-109 44 Carbon Dioxide 30 mmol/L 24-34 44 Glucose 109 mg/dL High 70-105 44 BUN 13 mg/dL 6-26 44 Creatinine 0.8 mg/dL 0.5-1.4 44 Calcium 9.1 mg/dL 8.5-10.2 44 Total Protein 6.2 g/dL 6.0-8.0 44 Albumin 4.0 g/dL 3.6-4.9 44 Globulin 2.2 g/dL 2.0-3.5 44 A/G Ratio 1.8 Ratio 1.0-2.2 44 Total Bilirubin 0.4 mg/dL 0.1-1.3 44 Alkaline Phosphatase 82 U/L 24-140 44 Alt 15 U/L 3-42 44 Ast 16 U/L 8-42 44 Anion Gap 11 mmol/L 6-14 44 Connie Egfr >60 >60 44, 70 Non Connie Egfr >60 >60 44, 71 Comprehensive Metabolic (CMP) 07/19/2011 Sodium 139 mmol/L 134-142 44 Potassium 4.1 mmol/L 3.5-5.2 44 Chloride 105 mmol/L 97-109 44 Carbon Dioxide 27 mmol/L 24-34 44 Glucose 104 mg/dL 70-105 44 BUN 14 mg/dL 6-26 44 Creatinine 0.8 mg/dL 0.5-1.4 44 Calcium 9.0 mg/dL 8.5-10.2 44 BUN/CR 18 ratio 12-20 44 Total Protein 6.0 g/dL 6.0-8.0 44 Albumin 4.0 g/dL 3.6-4.9 44 Globulin 2.0 g/dL 2.0-3.5 44 A/G Ratio 2.0 Ratio 1.0-2.2 44 Total Bilirubin 0.4 mg/dL 0.1-1.3 44 Alkaline Phosphatase 83 U/L 24-140 44 Alt 22 U/L 3-42 44 Ast 18 U/L 8-42 44 Anion Gap 11 mmol/L 6-14 44 Connie Egfr >60 >60 44, 72 Non Connie Egfr >60 >60 44, 73 PSA Total And Free -RL 07/19/2011 PSA Total 6.9 NG/ML High (0.0-4.0) 44 PSA Free 0.6 NG/ML 44 PSA % Free 9 % 44, 74 Laboratory test finding 07/19/2011 TSH 5.07 uIU/mL 0.34-5.60 44 Lipid 07/19/2011 Cholesterol 197 mg/dL 50-199 44 Triglycerides 178 mg/dL 30-200 44 HDL 39 mg/dL 29-71 44, 75 Chol/ HDL Ratio 5.1 ratio 4.0-6.7 44 VLDL 36 mg/dL High 2-29 44 LDL (Calc) 122 mg/dL 20-129 44, 76 CBC With Auto Diff 07/19/2011 WBC 10.7 K/uL 4.1-11.0 44 RBC 5.10 M/uL 4.60-6.10 44 Hemoglobin 14.7 gm/dL 13.5-18.0 44 Hematocrit 42.8 % 41.0-53.0 44 MCV 83.9 fL 80.0-97.0 44 MCH 28.9 pg 27.0-32.0 44 MCHC 34.4 g/dL 32.0-36.0 44 RDW 13.6 % 11.5-14.5 44 PLT Count 200 K/ul 140-400 44 Neutrophil 51.6 % 35.0-75.0 44 Lymphocyte 33.5 % 16.0-52.0 44 Monocyte 11.9 % High 2.0-10.0 44 Eosinophil 2.4 % 0.0-5.0 44 Basophil 0.6 % 0.0-4.0 44 Abs Neutrophils 5.5 K/uL 2.1-8.0 44 Abs Lymphocytes 3.6 K/uL 0.8-5.5 44 Abs Monocytes 1.3 K/uL High 0.1-1.0 44 Abs Eosinophils 0.3 K/uL 0.0-0.5 44 Abs Basophils 0.1 K/uL 0.0-0.3 44 Lipid 01/18/2011 Cholesterol 147 mg/dL 50-199 44 Triglycerides 100 mg/dL 10-150 44 HDL 32 mg/dL 29-71 44, 77 Chol/ HDL Ratio 4.6 ratio 4.0-6.7 44 VLDL 20 mg/dL 2-29 44 LDL (Calc) 95 mg/dL 20-129 44, 78 Comprehensive Metabolic (CMP) 01/18/2011 Sodium 140 mmol/L 135-144 44 Potassium 3.8 mmol/L 3.6-5.2 44 Chloride 108 mmol/L 97-110 44 Carbon Dioxide 25 mmol/L 23-32 44 Glucose 77 mg/dL 70-105 44 BUN 16 mg/dL 6-22 44 Creatinine 0.8 mg/dL 0.5-1.3 44 Calcium 8.8 mg/dL 8.6-10.2 44 BUN/CR 20 ratio 12-20 44 Total Protein 6.1 g/dL 5.8-7.8 44 Albumin 3.6 g/dL 3.5-4.8 44 Globulin 2.5 g/dL 2.0-3.5 44 A/G Ratio 1.4 Ratio 1.0-2.2 44 Total Bilirubin 0.5 mg/dL 0.3-1.2 44 Alkaline Phosphatase 74 U/L 24-140 44 Alt 21 U/L 5-45 44 Ast 22 U/L 12-40 44 Anion Gap 11 mmol/L 8-16 44 Non Connie Egfr >60 >60 44, 79 Connie Egfr >60 >60 44, 80 PSA Total And Free -RL 01/18/2011 PSA Total 4.6 NG/ML High (0.0-4.0) 44 PSA Free 0.5 NG/ML 44 PSA % Free 11 % 44, 81 Lipid 07/13/2010 Cholesterol 177 mg/dL 50-199 44 Triglycerides 140 mg/dL 10-150 44 HDL 41 mg/dL 29-71 44, 82 Chol/HDL 4.3 ratio 4.0-6.7 44 VLDL 28 mg/dL 2-29 44 LDL 108 mg/dL 20-129 44, 83 CBC With Auto Diff 07/13/2010 WBC 9.7 K/uL 4.1-11.0 44 RBC 5.27 M/uL 4.60-6.10 44 HGB 15.3 gm/dL 13.5-18.0 44 HCT 45.1 % 41.0-53.0 44 MCV 85.7 fL 80.0-97.0 44 MCH 29.0 pg 27.0-32.0 44 MCHC 33.8 g/dL 32.0-36.0 44 RDW 13.3 % 11.5-14.5 44 PLT 200 K/ul 140-400 44 NE% 45.6 % 35.0-75.0 44 Ly% 38.4 % 16.0-52.0 44 Mo% 12.1 % High 2.0-10.0 44 Eo% 2.5 % 0.0-5.0 44 Ba% 1.4 % 0.0-4.0 44 NE# 4.4 K/uL 2.1-8.0 44 Ly# 3.7 K/uL 0.8-5.5 44 Mo# 1.2 K/uL High 0.1-1.0 44 Eo# 0.2 K/uL 0.0-0.5 44 Ba# 0.1 K/uL 0.0-0.3 44 Comprehensive Metabolic (CMP) 07/13/2010 Sodium 142 mmol/L 135-144 44 Potassium 4.3 mmol/L 3.6-5.2 44 Chloride 106 mmol/L 97-110 44 Carbon Dioxide 29 mmol/L 23-32 44 Glucose 97 mg/dL 70-105 44 BUN 13 mg/dL 6-22 44 Creatinine 0.9 mg/dL 0.5-1.3 44 Calcium 9.0 mg/dL 8.6-10.2 44 BUN/CR 14 ratio 12-20 44 Total Protein 5.9 g/dL 5.8-7.8 44 Albumin 3.7 g/dL 3.5-4.8 44 Globulin 2.2 g/dL 2.0-3.5 44 A/G Ratio 1.7 Ratio 1.0-2.2 44 Tbili 0.7 mg/dL 0.3-1.2 44 Alk Phos 87 U/L 24-140 44 Alt 18 U/L 5-45 44 Ast 22 U/L 12-40 44 Anion Gap 11 mmol/L 8-16 44 NAAeGFR >60 >60 44, 84 AAeGFR >60 >60 44, 85 CMP 01/12/2010 Sodium 140 mmol/L 135-144 44 Potassium 4.7 mmol/L 3.6-5.2 44 Chloride 106 mmol/L 97-110 44 Carbon Dioxide 27 mmol/L 23-32 44 Glucose 103 mg/dL (70-99) 44 BUN 13 mg/dL 6-22 44 Creatinine 0.9 mg/dL 0.5-1.3 44 BUN/CR 14 Ratio 44 Calcium 9.0 mg/dL 8.6-10.2 44 Total Protein 5.8 g/dL 5.8-7.8 44 Albumin 3.6 g/dL 3.5-4.8 44 Globulin 2.2 g/dL 2.0-3.5 44 A/G Ratio 1.6 Ratio 1.0-2.2 44 Total Bilirubin 0.7 mg/dL 0.3-1.2 44 Alkaline Phosphatase 79 U/L 24-140 44 Alt 31 U/L 5-45 44 Ast 30 U/L 12-40 44 Anion Gap 12 mmol/L 8-16 44 GFR Calculation > 60 mL/min 60-175 44, 86 GFR For > 60 mL/min 60-175 44, 87 Lipid Panel 01/12/2010 Cholesterol 182 mg/dL 50-199 44 Triglycerides 144 mg/dL 10-150 44 HDL 37 mg/dL 29-71 44, 88 Chol/HDL Ratio 4.9 Ratio 4.0-6.7 44, 89 VLDL 29 mg/dL 2-29 44 LDL (Calc) 116 mg/dL 20-129 44, 90 PSA Free & Total -LA 10/17/2009 PSA, Total-LA 3.3 NG/ML 0.0-4.0 44 PSA, Free 0.4 NG/ML 44 PSA, % Free - LA 12 % 44, 91 Lipid TX Panel 10/17/2009 Ast 24 U/L 12-40 44 Alt 21 U/L 5-45 44 Cholesterol 148 mg/dL 50-199 44, 92 Triglycerides 109 mg/dL 10-150 44 HDL 28 mg/dL Low 29-71 44, 93 LDL (Calc) 98 mg/dL 20-129 44, 94 Chol/HDL Ratio 5.3 Ratio 4.0-6.7 44, 95 VLDL 22 mg/dL 2-29 44 CMP 07/14/2009 Sodium 142 mmol/L 135-144 96 Potassium 4.3 mmol/L 3.6-5.2 96, 97 Chloride 106 mmol/L 97-110 96 Carbon Dioxide 29 mmol/L 23-32 96 Glucose 101 mg/dL 70-105 96 BUN 11 mg/dL 6-22 96 Creatinine 0.8 mg/dL 0.5-1.3 96 BUN/CR 14 Ratio 96 Calcium 8.9 mg/dL 8.6-10.2 96 Total Protein 5.8 g/dL 5.8-7.8 96 Albumin 3.7 g/dL 3.5-4.8 96 Globulin 2.1 g/dL 2.0-3.5 96 A/G Ratio 1.8 Ratio 1.0-2.2 96 Total Bilirubin 0.4 mg/dL 0.3-1.2 96, 98 Alkaline Phosphatase 71 U/L 24-140 96 Alt 18 U/L 5-45 96 Ast 21 U/L 12-40 96 Anion Gap 11 mmol/L 8-16 96 GFR Calculation > 60 mL/min 60-175 96, 99 GFR For > 60 mL/min 60-175 96, 100 CBC With Auto Diff 07/14/2009 WBC 8.7 K/ul 4.0-10.9 96 RBC 5.12 M/ul 4.70-6.10 96 Hemoglobin 14.7 GM/dl 13.5-18.0 96 Hematocrit 43.7 % 42.0-52.0 96 MCV 85.3 FL 80.0-97.0 96 MCH 28.7 pg 27.0-31.0 96 MCHC 33.7 g/dL 32.0-36.0 96 RDW 13.6 % 11.5-14.5 96 Platelet Count 182 K/ul 140-440 96 Neutrophils 52.1 % 50-70 96 Lymphocytes 30.4 % 20-44 96 Monocytes 12.6 % High 2-9 96 Eosinophil 3.1 % 0-4 96 Basophil 1.8 % 0-2 96 Absolute Neutrophils 4.6 K/ul 2.05-7.63 96 Absolute Lymphocytes 2.7 K/ul 0.8-4.8 96 Absolute Monocytes 1.1 K/ul High 0.1-1.0 96 Absolute Eosinophils 0.3 K/ul 0.1-0.5 96 Absolute Basophils 0.2 K/ul 0.0-0.3 96 Hematology Comment (Comm2) N/A 96 Lipid Panel 07/14/2009 Cholesterol 209 mg/dL High 50-199 96 Triglycerides 155 mg/dL High 10-150 96 HDL 35 mg/dL 29-71 96, 101 Chol/HDL Ratio 6.0 Ratio 4.0-6.7 96, 102 VLDL 31 mg/dL High 2-29 96 LDL (Calc) 143 mg/dL High 20-129 96, 103 Laboratory test finding 07/14/2009 PSA 4.33 ng/ml High 0.00-4.00 96, 104 Lipid TX Panel 01/13/2009 Ast 25 U/L 12-40 105 Alt 25 U/L 5-45 105 Cholesterol 211 mg/dL High 50-199 105 Triglycerides 138 mg/dL 10-150 105 HDL 38 mg/dL 29-71 105, 106 LDL (Calc) 145 mg/dL High 20-129 105, 107 Chol/HDL Ratio 5.6 Ratio 4.0-6.7 105, 108 VLDL 28 mg/dL 2-29 105 CMP 07/15/2008 Sodium 142 mmol/L 135-144 109 Potassium 4.9 mmol/L 3.6-5.2 109 Chloride 108 mmol/L 97-110 109 Carbon Dioxide 30 mmol/L 23-33 109 Glucose 99 mg/dL 70-105 109 BUN 12 mg/dL 6-22 109 Creatinine 0.8 mg/dL 0.5-1.3 109 BUN/CR 15 Ratio 12.0-20.0 109 Calcium 8.8 mg/dL 8.6-10.2 109, 110 Total Protein 6.1 g/dL 5.8-7.8 109 Albumin 3.7 g/dL 3.5-4.8 109 Globulin 2.4 g/dL 2.0-3.5 109 A/G Ratio 1.5 Ratio 1.0-2.2 109 Total Bilirubin 0.9 mg/dL 0.3-1.2 109 Alkaline Phosphatase 79 U/L 24-140 109 Alt 21 U/L 4-45 109 Ast 21 U/L 12-40 109 Anion Gap 9 mmol/L 8-16 109 GFR Calculation > 60 mL/min 109, 111 GFR For > 60 mL/min 109, 112 CBC With Auto Diff 07/15/2008 WBC 7.3 K/ul 4.0-10.9 109 RBC 5.15 M/ul 4.70-6.10 109 Hemoglobin 14.9 GM/dl 13.5-18.0 109 Hematocrit 43.6 % 42.0-52.0 109 MCV 84.6 FL 80.0-97.0 109 MCH 28.9 pg 27.0-31.0 109 MCHC 34.1 g/dL 32.0-36.0 109 RDW 13.7 % 11.5-14.5 109 Platelet Count 206 K/ul 140-440 109 Neutrophils 53.2 % 50-70 109 Lymphocytes 33.4 % 20-44 109 Monocytes 10.0 % High 2-9 109 Eosinophil 2.9 % 0-4 109 Basophil 0.5 % 0-2 109 Absolute Neutrophils 3.9 K/ul 2.05-7.63 109 Absolute Lymphocytes 2.4 K/ul 0.8-4.8 109 Absolute Monocytes 0.7 K/ul 0.1-1.0 109 Absolute Eosinophils 0.2 K/ul 0.1-0.5 109 Absolute Basophils 0.0 K/ul 0.0-0.3 109 Hematology Comment (Comm2) N/A 109 Lipid Panel 07/15/2008 Cholesterol 178 mg/dL 50-199 109 Triglycerides 96 mg/dL 10-150 109 HDL 39 mg/dL 29-71 109, 113 Chol/HDL Ratio 4.6 Ratio 109, 114 VLDL 19 mg/dL 109 LDL (Calc) 120 mg/dL 20-129 109, 115 Laboratory test finding 07/15/2008 PSA 2.61 ng/ml 0.00-4.00 109, 116 Lipid TX Panel 01/15/2008 Ast 24 U/L 12-40 Alt 23 U/L 4-45 Cholesterol 179 mg/dL 50-199 117 Triglycerides 120 mg/dL 10-150 HDL 36 mg/dL (>40) 118 LDL (Calc) 119 mg/dL 20-129 119 Chol/HDL Ratio 5.0 Ratio 120 VLDL 24 mg/dL Laboratory test finding 07/14/2007 PSA 2.27 ng/ml 0.00-4.00 121 Lipid Panel 07/14/2007 Cholesterol 293 mg/dL High 50-199 Triglycerides 277 mg/dL High 10-150 HDL 38 mg/dL 29-71 Chol/HDL Ratio 7.7 Ratio VLDL 55 mg/dL LDL (Calc) 200 mg/dL High 20-129 CBC With Auto Diff 07/14/2007 WBC 7.8 K/ul 4.0-10.9 RBC 5.35 M/ul 4.70-6.10 Hemoglobin 15.1 GM/dl 13.5-18.0 Hematocrit 44.0 % 42.0-52.0 MCV 82.3 FL 80.0-97.0 MCH 28.2 pg 27.0-31.0 MCHC 34.3 g/dL 32.0-36.0 RDW 12.8 % 11.5-14.5 Platelet Count 236 K/ul 140-440 Neutrophils 53.3 % 50-70 Lymphocytes 34.6 % 20-44 Monocytes 10.0 % High 2-9 Eosinophil 1.9 % 0-4 Basophil 0.2 % 0-2 Absolute Neutrophils 4.2 K/ul 2.05-7.63 Absolute Lymphocytes 2.7 K/ul 0.8-4.8 Absolute Monocytes 0.8 K/ul 0.1-1.0 Absolute Eosinophils 0.1 K/ul 0.1-0.5 Absolute Basophils 0.0 K/ul Low 0.1-0.3 CMP 07/14/2007 Sodium 140 mmol/L 135-144 Potassium 4.8 mmol/L 3.6-5.2 Chloride 106 mmol/L 97-110 Carbon Dioxide 29 mmol/L 23-33 Glucose 88 mg/dL 70-105 BUN 12 mg/dL 6-22 Creatinine 0.8 mg/dL 0.5-1.3 BUN/CR 15 Ratio 12.0-20.0 Calcium 9.4 mg/dL 8.6-10.2 122 Total Protein 6.5 g/dL 5.8-7.8 Albumin 3.9 g/dL 3.5-4.8 Globulin 2.6 g/dL 2.0-3.5 A/G Ratio 1.5 Ratio 1.0-2.2 Total Bilirubin 0.7 mg/dL 0.3-1.2 Alkaline Phosphatase 76 U/L 24-140 Alt 20 U/L 4-45 Ast 23 U/L 12-40 Anion Gap 10 mmol/L 8-16 GFR Calculation > 60 mL/min 123 GFR For > 60 mL/min 124 Lipid TX Panel 04/04/2006 Ast 22 U/L 12-40 Alt 20 U/L 4-45 Cholesterol 184 mg/dL 50-199 Triglycerides 159 mg/dL High 10-150 HDL 40 mg/dL 29-71 LDL (Calc) 112 mg/dL 20-129 Chol/HDL Ratio 4.6 Ratio VLDL 32 mg/dL Laboratory test finding 09/14/2005 PSA 1.88 ng/ml 0.00-4.00 125, 126 Lipid Panel 09/14/2005 Cholesterol 233 mg/dL High 50-199 125 Triglycerides 84 mg/dL 10-150 125 HDL 41 mg/dL 29-71 125 Chol/HDL Ratio 5.7 Ratio 125 VLDL 17 mg/dL 125 LDL (Calc) 175 mg/dL High 20-129 125 CMP 09/14/2005 Sodium 142 mmol/L 135-144 125 Potassium 5.1 mmol/L 3.6-5.2 125 Chloride 107 mmol/L 97-110 125 Carbon Dioxide 28 mmol/L 23-33 125 Glucose 96 mg/dL 70-105 125 BUN 14 mg/dL 6-22 125 Creatinine 0.9 mg/dL 0.5-1.3 125 BUN/CR 16 Ratio 12.0-20.0 125 Calcium 8.9 mg/dL 8.6-10.2 125 Total Protein 6.0 g/dL 5.8-7.8 125 Albumin 3.7 g/dL 3.5-4.8 125 Globulin 2.3 g/dL 2.0-3.5 125 A/G Ratio 1.6 Ratio 1.0-2.2 125 Total Bilirubin 0.9 mg/dL 0.3-1.2 125 Alkaline Phosphatase 72 U/L 24-140 125 Alt 18 U/L 4-45 125 Ast 22 U/L 12-40 125 Anion Gap 12 mmol/L 8-16 125 GFR White Male 89 125 GFR White Female 66 125 GFR Black Male 108 125 GFR Black Female 80 125 GFR Guidelines 0 125, 127 Lipid Panel 02/17/2005 Cholesterol 232 mg/dL High 50-199 128 Triglycerides 145 mg/dL 10-150 128 HDL 45 mg/dL 29-71 128 Chol/HDL Ratio 5.2 Ratio 128 VLDL 29 mg/dL 128 LDL (Calc) 158 mg/dL High 20-100 128 CMP 02/17/2005 Sodium 141 mmol/L 135-144 128 Potassium 3.8 mmol/L 3.6-5.2 128 Chloride 103 mmol/L 97-110 128 Carbon Dioxide 30 mmol/L 22-32 128 Glucose 109 mg/dL High 70-105 128 BUN 12 mg/dL 6-22 128 Creatinine 0.8 mg/dL 0.5-1.3 128 BUN/CR 15 Ratio 12.0-20.0 128 Calcium 9.2 mg/dL 8.6-10.2 128 Total Protein 6.2 g/dL 5.8-7.8 128 Albumin 3.8 g/dL 3.5-4.8 128 Globulin 2.4 g/dL 2.0-3.5 128 A/G Ratio 1.6 Ratio 1.0-2.2 128 Total Bilirubin 0.8 mg/dL 0.3-1.2 128 Ast 23 U/L 12-40 128 Alt 18 U/L 4-45 128 Alkaline Phosphatase 84 U/L 32-91 128 Anion Gap 12 mmol/L 8-16 128 Lipid TX Panel 10/19/2004 Ast 25 U/L 8-42 Alt 22 U/L 3-42 Cholesterol 139 mg/dL 50-199 Triglycerides 51 mg/dL 30-200 HDL 42 mg/dL 29-71 LDL (Calc) 87 mg/dL 20-129 Chol/HDL Ratio 3.3 Ratio VLDL 10 mg/dL Laboratory test finding 06/19/2004 PSA 1.14 ng/ml 0.00-4.00 129 CMP 06/19/2004 Sodium 140 mmol/L 135-145 Potassium 4.8 mmol/L 3.4-5.3 Chloride 109 mmol/L 98-111 Carbon Dioxide 25 mmol/L 22-33 Glucose 102 mg/dL 70-105 BUN 13 mg/dL 6-26 Creatinine 0.8 mg/dL 0.5-1.5 BUN/CR 16 Ratio 12.0-20.0 Calcium 9.2 mg/dL 8.6-10.3 Total Protein 6.7 g/dL 6.2-8.3 Albumin 3.9 g/dL 3.5-5.0 Globulin 2.8 g/dL 2.7-4.3 A/G Ratio 1.4 Ratio 1.0-2.2 Total Bilirubin 0.9 mg/dL 0.1-1.3 Ast 21 U/L 8-42 Alt 24 U/L 3-42 Alkaline Phosphatase 83 U/L 24-140 Anion Gap 11 mmol/L 10-20 Lipid Panel 06/19/2004 Cholesterol 153 mg/dL 50-199 Triglycerides 79 mg/dL 30-200 HDL 33 mg/dL 29-71 Chol/HDL Ratio 4.6 Ratio VLDL 16 mg/dL LDL (Calc) 104 mg/dL 20-129 1 Updated reference range on new analyzer 2 Updated reference range on new analyzer 3 Concerning GFR Guidelines for Americans: Normal function or mild renal disease, if clinically at risk: >/=60 mL/min Moderately decreased: 30-59 Severely decreased: 15-29 Renal failure: <15 4 Concerning GFR Guidelines: Normal function or mild renal disease, if clinically at risk: >/=60 mL/min Moderately decreased: 30-59 Severely decreased: 15-29 Renal failure: <15 Glomerular Filtration Rate (GFR) is estimated based on the MDRD equation, which assumes a steady state for creatinine as recommended by the National Kidney Disease Education Program in conjunction with the National Institutes of Health and the National Kidney Foundation. Clinical conditions in which it may be necessary to measure GFR by using clearance methods include extremes of age and body size, severe malnutrition or obesity, diseases of skeletal muscle, paraplegia or quadriplegia, vegetarian diet, rapidly changing kidney function, and calculation of the dose of potentially toxic drugs that are excreted by the kidneys. 5 Updated Reference Range 6 Microbiology results SOURCE Clean Catch Midstream FINAL RESULT No growth 7 Per NCEP ATP III Guidelines: Results lower than 40 mg/dL are suggestive of increased risk for coronary artery disease. Results > or=to 60 mg/dL are considered a negative risk factor. 8 Per NCEP ATP III Guidelines: Normal Population <130 Patients with medical conditions: CHD/DM Optimal: <100 Borderline high: 130-159 High: 160-189 Very high: >189 9 Beginning 06/27/06 PSA values assayed at [facility] uses chemiluminescence methodology manufactured by [employer] for use on the DXI analyzer. Values obtained with different assay methods or kits can not be used interchangeably. Serum PSA measurement is not an absolute test for malignancy. The PSA value should be used in conjunction with information available from clinical evaluation and other diagnostic procedures. 10 Updated reference range on new analyzer 11 5.7 No visible hemolysis. 12 Updated reference range on new analyzer 13 Concerning GFR Guidelines for Americans: Normal function or mild renal disease, if clinically at risk: >/=60 mL/min Moderately decreased: 30-59 Severely decreased: 15-29 Renal failure: <15 14 Concerning GFR Guidelines: Normal function or mild renal disease, if clinically at risk: >/=60 mL/min Moderately decreased: 30-59 Severely decreased: 15-29 Renal failure: <15 Glomerular Filtration Rate (GFR) is estimated based on the MDRD equation, which assumes a steady state for creatinine as recommended by the National Kidney Disease Education Program in conjunction with the National Institutes of Health and the National Kidney Foundation. Clinical conditions in which it may be necessary to measure GFR by using clearance methods include extremes of age and body size, severe malnutrition or obesity, diseases of skeletal muscle, paraplegia or quadriplegia, vegetarian diet, rapidly changing kidney function, and calculation of the dose of potentially toxic drugs that are excreted by the kidneys. 15 Updated reference range on new analyzer 16 Per NCEP ATP III Guidelines: Results lower than 40 mg/dL are suggestive of increased risk for coronary artery disease. Results > or=to 60 mg/dL are considered a negative risk factor. 17 Per NCEP ATP III Guidelines: Normal Population <130 Patients with medical conditions: CHD/DM Optimal: <100 Borderline high: 130-159 High: 160-189 Very high: >189 18 Concerning GFR Guidelines for Americans: Normal function or mild renal disease, if clinically at risk: >/=60 mL/min Moderately decreased: 30-59 Severely decreased: 15-29 Renal failure: <15 19 Concerning GFR Guidelines: Normal function or mild renal disease, if clinically at risk: >/=60 mL/min Moderately decreased: 30-59 Severely decreased: 15-29 Renal failure: <15 Glomerular Filtration Rate (GFR) is estimated based on the MDRD equation, which assumes a steady state for creatinine as recommended by the National Kidney Disease Education Program in conjunction with the National Institutes of Health and the National Kidney Foundation. Clinical conditions in which it may be necessary to measure GFR by using clearance methods include extremes of age and body size, severe malnutrition or obesity, diseases of skeletal muscle, paraplegia or quadriplegia, vegetarian diet, rapidly changing kidney function, and calculation of the dose of potentially toxic drugs that are excreted by the kidneys. 20 Beginning 06/27/06 PSA values assayed at [facility] uses chemiluminescence methodology manufactured by [employer] for use on the DXI analyzer. Values obtained with different assay methods or kits can not be used interchangeably. Serum PSA measurement is not an absolute test for malignancy. The PSA value should be used in conjunction with information available from clinical evaluation and other diagnostic procedures. 21 Per NCEP ATP III Guidelines: Results lower than 40 mg/dL are suggestive of increased risk for coronary artery disease. Results > or=to 60 mg/dL are considered a negative risk factor. 22 Per NCEP ATP III Guidelines: Normal Population <130 Patients with medical conditions: CHD/DM Optimal: <100 Borderline high: 130-159 High: 160-189 Very high: >189 23 Concerning GFR Guidelines for Americans: Normal function or mild renal disease, if clinically at risk: >/=60 mL/min Moderately decreased: 30-59 Severely decreased: 15-29 Renal failure: <15 24 Concerning GFR Guidelines: Normal function or mild renal disease, if clinically at risk: >/=60 mL/min Moderately decreased: 30-59 Severely decreased: 15-29 Renal failure: <15 Glomerular Filtration Rate (GFR) is estimated based on the MDRD equation, which assumes a steady state for creatinine as recommended by the National Kidney Disease Education Program in conjunction with the National Institutes of Health and the National Kidney Foundation. Clinical conditions in which it may be necessary to measure GFR by using clearance methods include extremes of age and body size, severe malnutrition or obesity, diseases of skeletal muscle, paraplegia or quadriplegia, vegetarian diet, rapidly changing kidney function, and calculation of the dose of potentially toxic drugs that are excreted by the kidneys. 25 Per NCEP ATP III Guidelines: Results lower than 40 mg/dL are suggestive of increased risk for coronary artery disease. Results > or=to 60 mg/dL are considered a negative risk factor. 26 Per NCEP ATP III Guidelines: Normal Population <130 Patients with medical conditions: CHD/DM Optimal: <100 Borderline high: 130-159 High: 160-189 Very high: >189 27 Beginning 06/27/06 PSA values assayed at [facility] uses an EIA methodology manufactured by José [employer] for use on the DXI analyzer. Values obtained with different assay methods or kits can not be used interchangeably. Serum PSA measurement is not an absolute test for malignancy. The PSA value should be used in conjunction with information available from clinical evaluation and other diagnostic procedures. 28 Unless otherwise specified, testing performed by [facility] [employer] [address] [place] [id number] 29 This sample is drawn by:RH 30 5.6 No visible hemolysis. Testing performed on an aliquot tube 31 Concerning GFR Guidelines for Americans: Normal function or mild renal disease, if clinically at risk: >/=60 mL/min Moderately decreased: 30-59 Severely decreased: 15-29 Renal failure: <15 32 Concerning GFR Guidelines: Normal function or mild renal disease, if clinically at risk: >/=60 mL/min Moderately decreased: 30-59 Severely decreased: 15-29 Renal failure: <15 Glomerular Filtration Rate (GFR) is estimated based on the MDRD equation, which assumes a steady state for creatinine as recommended by the National Kidney Disease Education Program in conjunction with the National Institutes of Health and the National Kidney Foundation. Clinical conditions in which it may be necessary to measure GFR by using clearance methods include extremes of age and body size, severe malnutrition or obesity, diseases of skeletal muscle, paraplegia or quadriplegia, vegetarian diet, rapidly changing kidney function, and calculation of the dose of potentially toxic drugs that are excreted by the kidneys. 33 Beginning 06/27/06 PSA values assayed at [facility] laboratories uses an EIA methodology manufactured by [employer] for use on the DXI analyzer. Values obtained with different assay methods or kits can not be used interchangeably. Serum PSA measurement is not an absolute test for malignancy. The PSA value should be used in conjunction with information available from clinical evaluation and other diagnostic procedures. 34 Unless otherwise specified, testing performed by [facility] [address] [place] [id number] 35 Unless otherwise specified, testing performed by [facility] [address] [id number] 36 CYtology ffrom urine please, thanks! 37 [facility] [employer] [facility]. [address] [place] [address] MISCELLANEOUS CYTOLOGY REPORT Accession Number: [id number] Source of Specimen(s): A: Urine, Voided Clinical Diagnosis and History: Gross Description: Urine, Voided: 70 cc yellow fluid. Final Diagnosis: Specimen Adequacy Satisfactory Final Diagnosis NEGATIVE FOR MALIGNANCY Urothelial cells and occasional erythrocytes present. Reported: 06/24/2014 Electronically Signed Out By Kahlil Morataya MD [facility] Worker: Nicole KENT(ASCP) [facility] Unless otherwise specified, testing performed by [facility] [address] [address] 38 Unless otherwise specified, testing performed by [facility] [address] [place] [id number] 39 Unless otherwise specified, testing performed by [facility] [address] [place] [id number] 40 SUGGESTED THERAPEUTIC RANGES USING INR FOR STABILIZED ANTICOAGULATED PATIENTS: STANDARD DOSE THERAPY INR 2.0-3.0 DVT, PE, PREVENT DVT OR EMBOLISM HIGH DOSE THERAPY INR 2.5-3.5 PREVENT EMBOLISM FROM MECHANICAL HEART VALVE Unless otherwise specified, testing performed by [facility] [address] [place] [id number] 41 This sample is drawn by:RH 42 Concerning GFR Guidelines for Americans: Normal function or mild renal disease, if clinically at risk: >/=60 mL/min Moderately decreased: 30-59 Severely decreased: 15-29 Renal failure: <15 43 Concerning GFR Guidelines: Normal function or mild renal disease, if clinically at risk: >/=60 mL/min Moderately decreased: 30-59 Severely decreased: 15-29 Renal failure: <15 Glomerular Filtration Rate (GFR) is estimated based on the MDRD equation, which assumes a steady state for creatinine as recommended by the National Kidney Disease Education Program in conjunction with the National Institutes of Health and the National Kidney Foundation. Clinical conditions in which it may be necessary to measure GFR by using clearance methods include extremes of age and body size, severe malnutrition or obesity, diseases of skeletal muscle, paraplegia or quadriplegia, vegetarian diet, rapidly changing kidney function, and calculation of the dose of potentially toxic drugs that are excreted by the kidneys. 44 This sample is drawn by:CT 45 Unless otherwise specified, testing performed by [facility] [address] [place] [id number] 46 Reference range: 9 to 67 INTERPRETIVE INFORMATION: Angiotensin Converting [employer] For related information, see [email or web address] Performed by [facility], [address] [place] [id number] [email or web address], Connor Ceballos MD, Lab. Director Unless otherwise specified, testing performed by [facility] [address] [address] [phone] Results verified by repeat analysis Beginning 06/27/06 PSA values assayed at [facility] uses an EIA methodology manufactured by [employer] for use on the DXI analyzer. Values obtained with different assay methods or kits can not be used interchangeably. Serum PSA measurement is not an absolute test for malignancy. The PSA value should be used in conjunction with information available from clinical evaluation and other diagnostic procedures. 48 Microbiology results [facility] FINAL RESULT No growth 49 Per NCEP ATP III Guidelines: Results lower than 40 mg/dL are suggestive of increased risk for coronary artery disease. Results > or=to 60 mg/dL are considered a negative risk factor. 50 Per NCEP ATP III Guidelines: Normal Population <130 Patients with medical conditions: CHD/DM Optimal: <100 Borderline high: 130-159 High: 160-189 Very high: >189 51 Concerning GFR Guidelines for Americans: Normal function or mild renal disease, if clinically at risk: >/=60 mL/min Moderately decreased: 30-59 Severely decreased: 15-29 Renal failure: <15 52 Concerning GFR Guidelines: Normal function or mild renal disease, if clinically at risk: >/=60 mL/min Moderately decreased: 30-59 Severely decreased: 15-29 Renal failure: <15 Glomerular Filtration Rate (GFR) is estimated based on the MDRD equation, which assumes a steady state for creatinine as recommended by the National Kidney Disease Education Program in conjunction with the National Institutes of Health and the National Kidney Foundation. Clinical conditions in which it may be necessary to measure GFR by using clearance methods include extremes of age and body size, severe malnutrition or obesity, diseases of skeletal muscle, paraplegia or quadriplegia, vegetarian diet, rapidly changing kidney function, and calculation of the dose of potentially toxic drugs that are excreted by the kidneys. 53 % FREE PSA PROBABILITY OF CANCER 0 - 10% 56% 10 - 15% 28% 15 - 20% 20% 20 - 25% 16% GREATER THAN 25% 8% THE FREE PSA PERCENTAGE IS AN AID IN DISTINGUISHING PROSTATE CANCER FROM BENIGN PROSTATIC CONDITIONS IN MEN AGE 50 AND OLDER WITH A TOTAL PSA BETWEEN 3 AND 10 NG/ML AND NEGATIVE DIGITAL RECTAL EXAMINATION FINDINGS. PROSTATIC BIOPSY IS REQUIRED FOR THE DIAGNOSIS OF CANCER. (See: JESSA 1998; 279: 1660-9826) METHOD USED TO ASSAY BOTH FREE PSA AND TOTAL PSA IS [employer] FREE PSA AND TOTAL PSA. RESULTS SHOULD NOT BE INTERPRETED ABSOLUTE EVIDENCE FOR THE PRESENCE OR ABSENCE OF MALIGNANT DISEASE. VALUES OBTAINED WITH DIFFERENT ASSAY METHODS OR KITS CANNOT BE USED INTERCHANGEABLY. Unless otherwise specified, testing performed by [facility] [employer] [address] [place] [id number] 54 Per NCEP ATP III Guidelines: Results lower than 40 mg/dL are suggestive of increased risk for coronary artery disease. Results > or=to 60 mg/dL are considered a negative risk factor. 55 Per NCEP ATP III Guidelines: Normal Population <130 Patients with medical conditions: CHD/DM Optimal: <100 Borderline high: 130-159 High: 160-189 Very high: >189 56 Concerning GFR Guidelines for Americans: Normal function or mild renal disease, if clinically at risk: >/=60 mL/min Moderately decreased: 30-59 Severely decreased: 15-29 Renal failure: <15 57 Concerning GFR Guidelines: Normal function or mild renal disease, if clinically at risk: >/=60 mL/min Moderately decreased: 30-59 Severely decreased: 15-29 Renal failure: <15 Glomerular Filtration Rate (GFR) is estimated based on the MDRD equation, which assumes a steady state for creatinine as recommended by the National Kidney Disease Education Program in conjunction with the National Institutes of Health and the National Kidney Foundation. Clinical conditions in which it may be necessary to measure GFR by using clearance methods include extremes of age and body size, severe malnutrition or obesity, diseases of skeletal muscle, paraplegia or quadriplegia, vegetarian diet, rapidly changing kidney function, and calculation of the dose of potentially toxic drugs that are excreted by the kidneys. 58 Per NCEP ATP III Guidelines: Results lower than 40 mg/dL are suggestive of increased risk for coronary artery disease. Results > or=to 60 mg/dL are considered a negative risk factor. 59 Per NCEP ATP III Guidelines: Normal Population <130 Patients with medical conditions: CHD/DM Optimal: <100 Borderline high: 130-159 High: 160-189 Very high: >189 60 Concerning GFR Guidelines for Americans: Normal function or mild renal disease, if clinically at risk: >/=60 mL/min Moderately decreased: 30-59 Severely decreased: 15-29 Renal failure: <15 61 Concerning GFR Guidelines: Normal function or mild renal disease, if clinically at risk: >/=60 mL/min Moderately decreased: 30-59 Severely decreased: 15-29 Renal failure: <15 Glomerular Filtration Rate (GFR) is estimated based on the MDRD equation, which assumes a steady state for creatinine as recommended by the National Kidney Disease Education Program in conjunction with the National Institutes of Health and the National Kidney Foundation. Clinical conditions in which it may be necessary to measure GFR by using clearance methods include extremes of age and body size, severe malnutrition or obesity, diseases of skeletal muscle, paraplegia or quadriplegia, vegetarian diet, rapidly changing kidney function, and calculation of the dose of potentially toxic drugs that are excreted by the kidneys. 62 Recommended Cardiac Risk Assessment: Low < 1.0 mg/L Average 1.0 - 3.0 mg/L High > 3.0 mg/L 63 Per NCEP ATP III Guidelines: Results lower than 40 mg/dL are suggestive of increased risk for coronary artery disease. Results > or=to 60 mg/dL are considered a negative risk factor. 64 Per NCEP ATP III Guidelines: Optimal: <100 Near optimal: 100-129 Borderline high: 130-159 High: 160-189 Very high: >189 65 Concerning GFR Guidelines for Americans: Normal function or mild renal disease, if clinically at risk: >/=60 mL/min Moderately decreased: 30-59 Severely decreased: 15-29 Renal failure: <15 66 Concerning GFR Guidelines: Normal function or mild renal disease, if clinically at risk: >/=60 mL/min Moderately decreased: 30-59 Severely decreased: 15-29 Renal failure: <15 Glomerular Filtration Rate (GFR) is estimated based on the MDRD equation, which assumes a steady state for creatinine as recommended by the National Kidney Disease Education Program in conjunction with the National Institutes of Health and the National Kidney Foundation. Clinical conditions in which it may be necessary to measure GFR by using clearance methods include extremes of age and body size, severe malnutrition or obesity, diseases of skeletal muscle, paraplegia or quadriplegia, vegetarian diet, rapidly changing kidney function, and calculation of the dose of potentially toxic drugs that are excreted by the kidneys. 67 % FREE PSA PROBABILITY OF CANCER 0 - 10% 56% 10 - 15% 28% 15 - 20% 20% 20 - 25% 16% GREATER THAN 25% 8% THE FREE PSA PERCENTAGE IS AN AID IN DISTINGUISHING PROSTATE CANCER FROM BENIGN PROSTATIC CONDITIONS IN MEN AGE 50 AND OLDER WITH A TOTAL PSA BETWEEN 3 AND 10 NG/ML AND NEGATIVE DIGITAL RECTAL EXAMINATION FINDINGS. PROSTATIC BIOPSY IS REQUIRED FOR THE DIAGNOSIS OF CANCER. (See: JESSA 1998; 279: 5287-2184) METHOD USED TO ASSAY BOTH FREE PSA AND TOTAL PSA IS [employer]UN[employer] FREE PSA AND TOTAL PSA. RESULTS SHOULD NOT BE INTERPRETED ABSOLUTE EVIDENCE FOR THE PRESENCE OR ABSENCE OF MALIGNANT DISEASE. VALUES OBTAINED WITH DIFFERENT ASSAY METHODS OR KITS CANNOT BE USED INTERCHANGEABLY. Unless otherwise specified, testing performed by [facility] [address] [place] [id number] 68 Per NCEP ATP III Guidelines: Results lower than 40 mg/dL are suggestive of increased risk for coronary artery disease. Results > or=to 60 mg/dL are considered a negative risk factor. 69 Per NCEP ATP III Guidelines: Optimal: <100 Near optimal: 100-129 Borderline high: 130-159 High: 160-189 Very high: >189 70 Concerning GFR Guidelines for Americans: Normal function or mild renal disease, if clinically at risk: >/=60 mL/min Moderately decreased: 30-59 Severely decreased: 15-29 Renal failure: <15 71 Concerning GFR Guidelines: Normal function or mild renal disease, if clinically at risk: >/=60 mL/min Moderately decreased: 30-59 Severely decreased: 15-29 Renal failure: <15 Glomerular Filtration Rate (GFR) is estimated based on the MDRD equation, which assumes a steady state for creatinine as recommended by the National Kidney Disease Education Program in conjunction with the National Institutes of Health and the National Kidney Foundation. Clinical conditions in which it may be necessary to measure GFR by using clearance methods include extremes of age and body size, severe malnutrition or obesity, diseases of skeletal muscle, paraplegia or quadriplegia, vegetarian diet, rapidly changing kidney function, and calculation of the dose of potentially toxic drugs that are excreted by the kidneys. 72 Concerning GFR Guidelines for Americans: Normal function or mild renal disease, if clinically at risk: >/=60 mL/min Moderately decreased: 30-59 Severely decreased: 15-29 Renal failure: <15 73 Concerning GFR Guidelines: Normal function or mild renal disease, if clinically at risk: >/=60 mL/min Moderately decreased: 30-59 Severely decreased: 15-29 Renal failure: <15 Glomerular Filtration Rate (GFR) is estimated based on the MDRD equation, which assumes a steady state for creatinine as recommended by the National Kidney Disease Education Program in conjunction with the National Institutes of Health and the National Kidney Foundation. Clinical conditions in which it may be necessary to measure GFR by using clearance methods include extremes of age and body size, severe malnutrition or obesity, diseases of skeletal muscle, paraplegia or quadriplegia, vegetarian diet, rapidly changing kidney function, and calculation of the dose of potentially toxic drugs that are excreted by the kidneys. 74 % FREE PSA PROBABILITY OF CANCER 0 - 10% 56% 10 - 15% 28% 15 - 20% 20% 20 - 25% 16% GREATER THAN 25% 8% THE FREE PSA PERCENTAGE IS AN AID IN DISTINGUISHING PROSTATE CANCER FROM BENIGN PROSTATIC CONDITIONS IN MEN AGE 50 AND OLDER WITH A TOTAL PSA BETWEEN 3 AND 10 NG/ML AND NEGATIVE DIGITAL RECTAL EXAMINATION FINDINGS. PROSTATIC BIOPSY IS REQUIRED FOR THE DIAGNOSIS OF CANCER. (See: JESSA 1998; 279: 4602-0965) METHOD USED TO ASSAY BOTH FREE PSA AND TOTAL PSA IS [employer]UN[employer] FREE PSA AND TOTAL PSA. RESULTS SHOULD NOT BE INTERPRETED ABSOLUTE EVIDENCE FOR THE PRESENCE OR ABSENCE OF MALIGNANT DISEASE. VALUES OBTAINED WITH DIFFERENT ASSAY METHODS OR KITS CANNOT BE USED INTERCHANGEABLY. Unless otherwise specified, testing performed by [facility] [employer] [address] [place] [id number] 75 Per NCEP ATP III Guidelines: Results lower than 40 mg/dL are suggestive of increased risk for coronary artery disease. Results > or=to 60 mg/dL are considered a negative risk factor. 76 Per NCEP ATP III Guidelines: Optimal: <100 Near optimal: 100-129 Borderline high: 130-159 High: 160-189 Very high: >189 77 Per NCEP ATP III Guidelines: Results lower than 40 mg/dL are suggestive of increased risk for coronary artery disease. Results > or=to 60 mg/dL are considered a negative risk factor. 78 Per NCEP ATP III Guidelines: Optimal: <100 Near optimal: 100-129 Borderline high: 130-159 High: 160-189 Very high: >189 79 Concerning GFR Guidelines: Normal function or mild renal disease, if clinically at risk: >/=60 mL/min Moderately decreased: 30-59 Severely decreased: 15-29 Renal failure: <15 Glomerular Filtration Rate (GFR) is estimated based on the MDRD equation, which assumes a steady state for creatinine as recommended by the National Kidney Disease Education Program in conjunction with the National Institutes of Health and the National Kidney Foundation. Clinical conditions in which it may be necessary to measure GFR by using clearance methods include extremes of age and body size, severe malnutrition or obesity, diseases of skeletal muscle, paraplegia or quadriplegia, vegetarian diet, rapidly changing kidney function, and calculation of the dose of potentially toxic drugs that are excreted by the kidneys. 80 Concerning GFR Guidelines for Americans: Normal function or mild renal disease, if clinically at risk: >/=60 mL/min Moderately decreased: 30-59 Severely decreased: 15-29 Renal failure: <15 81 % FREE PSA PROBABILITY OF CANCER 0 - 10% 56% 10 - 15% 28% 15 - 20% 20% 20 - 25% 16% GREATER THAN 25% 8% THE FREE PSA PERCENTAGE IS AN AID IN DISTINGUISHING PROSTATE CANCER FROM BENIGN PROSTATIC CONDITIONS IN MEN AGE 50 AND OLDER WITH A TOTAL PSA BETWEEN 3 AND 10 NG/ML AND NEGATIVE DIGITAL RECTAL EXAMINATION FINDINGS. PROSTATIC BIOPSY IS REQUIRED FOR THE DIAGNOSIS OF CANCER. (See: JESSA 1998; 279: 3779-7673) METHOD USED TO ASSAY BOTH FREE PSA AND TOTAL PSA IS [employer]UN[employer] FREE PSA AND TOTAL PSA. RESULTS SHOULD NOT BE INTERPRETED ABSOLUTE EVIDENCE FOR THE PRESENCE OR ABSENCE OF MALIGNANT DISEASE. VALUES OBTAINED WITH DIFFERENT ASSAY METHODS OR KITS CANNOT BE USED INTERCHANGEABLY. Unless otherwise specified, testing performed by [facility] [employer] [address] [place] [id number] 82 Per NCEP ATP III Guidelines: Results lower than 40 mg/dL are suggestive of increased risk for coronary artery disease. Results > or=to 60 mg/dL are considered a negative risk factor. 83 Per NCEP ATP III Guidelines: Optimal: <100 Near optimal: 100-129 Borderline high: 130-159 High: 160-189 Very high: >189 84 Concerning GFR Guidelines: Normal function or mild renal disease, if clinically at risk: >/=60 mL/min Moderately decreased: 30-59 Severely decreased: 15-29 Renal failure: <15 Glomerular Filtration Rate (GFR) is estimated based on the MDRD equation, which assumes a steady state for creatinine as recommended by the National Kidney Disease Education Program in conjunction with the National Institutes of Health and the National Kidney Foundation. Clinical conditions in which it may be necessary to measure GFR by using clearance methods include extremes of age and body size, severe malnutrition or obesity, diseases of skeletal muscle, paraplegia or quadriplegia, vegetarian diet, rapidly changing kidney function, and calculation of the dose of potentially toxic drugs that are excreted by the kidneys. 85 Concerning GFR Guidelines for Americans: Normal function or mild renal disease, if clinically at risk: >/=60 mL/min Moderately decreased: 30-59 Severely decreased: 15-29 Renal failure: <15 86 Concerning GFR GUIDELINES: Normal Function or Mild Renal Disease, if clinically at risk: >/=60mL/min Moderately decreased: 30-59 Severely decreased: 15-29 Renal Failure: <15 Glomerular Filtration Rate (GFR) is estimated based on the MDRD equation, which assumes a steady state for creatinine as recommended by the National Kidney Disease Education Program in conjunction with the National Institutes of Health and the National Kidney Foundation. Clinical conditions in which it may be necessary to measure GFR by using clearance methods include extremes of age and body size, severe malnutrition or obesity, diseases of skeletal muscle, paraplegia or quadriplegia, vegetarian diet, rapidly changing kidney function, and calculation of the dose of potentially toxic drugs that are excreted by the kidneys. 87 Concerning GFR GUIDELINES: Normal Function or Mild Renal Disease, if clinically at risk: >/=60mL/min Moderately decreased: 30-59 Severely decreased: 15-29 Renal Failure: <15 88 PER NCEP ATP III GUIDELINES: RESULTS LOWER THAN 40 MG/DL ARE SUGGESTIVE OF INCREASED RISK FOR CORONARY ARTERY DISEASE. RESULTS > OR=TO 60 MG/DL ARE CONSIDERED A NEGATIVE RISK FACTOR. 89 INTERPRETATION OF CHOL-HDL RATIO CHD RISK FEMALE MALE VERY HIGH >8.3 >14.3 HIGH 5.6 - 8.3 6.7 - 14.3 AVERAGE 3.7 - 5.6 4.0 - 6.7 BELOW AVERAGE 2.5 - 3.7 2.7 - 4.0 PROTECTED <2.5 <2.7 90 PER NCEP ATP III GUIDELINES: OPTIMAL: <100 NEAR OPTIMAL: 100 - 129 BORDERLINE HIGH: 130 - 159 HIGH: 160 - 189 VERY HIGH: >189 91 % FREE PSA PROBABILITY OF CANCER 0 - 10% 56% 10 - 15% 28% 15 - 20% 20% 20 - 25% 16% GREATER THAN 25% 8% THE FREE PSA PERCENTAGE IS AN AID IN DISTINGUISHING PROSTATE CANCER FROM BENIGN PROSTATIC CONDITIONS IN MEN AGE 50 AND OLDER WITH A TOTAL PSA BETWEEN 3 AND 10 NG/ML AND NEGATIVE DIGITAL RECTAL EXAMINATION FINDINGS. PROSTATIC BIOPSY IS REQUIRED FOR THE DIAGNOSIS OF CANCER. (See: JESSA 1998; 279: [id number]) METHOD USED TO ASSAY BOTH FREE PSA AND TOTAL PSA IS [employer] IMMUNOASSAY SYSTEM [employer] FREE PSA AND TOTAL PSA. RESULTS SHOULD NOT BE INTERPRETED ABSOLUTE EVIDENCE FOR THE PRESENCE OR ABSENCE OF MALIGNANT DISEASE. VALUES OBTAINED WITH DIFFERENT ASSAY METHODS OR KITS CANNOT BE USED INTERCHANGEABLY. Unless otherwise specified, testing performed by [facility] [address] [place] [id number] FREE PSA % GUIDELINES: %FREE PSA PROBABILITY OF CANCER 0-10% 56% 10-15% 28% 15-20% 20% 20-25% 16% GREATER THAN 25% 8% METHOD USED FOR FREE AND TOTAL PSA IS THE [employer]ESS IMMUNOASSAY SYSTEM [employer] FREE PSA AND TOTAL PSA. RESULT SHOULD NOT BE INTERPRETED ABSOLUTE EVIDENCE FOR THE PRESENCE OR ABSENCE OF MALIGNA NT DISEASE. VALUES OBTAINED WITH DIFFERENT ASSAY METHODS OR KITS CANNOT BE USED INTERCHANGEABLY. 92 The difference between the most recent result of 209 and the current result of 148 exceeds the absolute delta value of 50 as defined for this test. 93 PER NCEP ATP III GUIDELINES: RESULTS LOWER THAN 40 MG/DL ARE SUGGESTIVE OF INCREASED RISK FOR CORONARY ARTERY DISEASE. RESULTS > OR=TO 60 MG/DL ARE CONSIDERED A NEGATIVE RISK FACTOR. 94 PER NCEP ATP III GUIDELINES: OPTIMAL: <100 NEAR OPTIMAL: 100 - 129 BORDERLINE HIGH: 130 - 159 HIGH: 160 - 189 VERY HIGH: >189 95 INTERPRETATION OF CHOL-HDL RATIO CHD RISK FEMALE MALE VERY HIGH >8.3 >14.3 HIGH 5.6 - 8.3 6.7 - 14.3 AVERAGE 3.7 - 5.6 4.0 - 6.7 BELOW AVERAGE 2.5 - 3.7 2.7 - 4.0 PROTECTED <2.5 <2.7 96 FASTING This sample is drawn by:CT 97 The difference between the most recent result of 4.9 and the current result of 4.3 exceeds the absolute delta value of 0.5 as defined for this test. 98 The difference between the most recent result of 0.9 and the current result of 0.4 exceeds the absolute delta value of 0.3 as defined for this test. 99 Concerning GFR GUIDELINES: Normal Function or Mild Renal Disease, if clinically at risk: >/=60mL/min Moderately decreased: 30-59 Severely decreased: 15-29 Renal Failure: <15 Glomerular Filtration Rate (GFR) is estimated based on the MDRD equation, which assumes a steady state for creatinine as recommended by the National Kidney Disease Education Program in conjunction with the National Institutes of Health and the National Kidney Foundation. Clinical conditions in which it may be necessary to measure GFR by using clearance methods include extremes of age and body size, severe malnutrition or obesity, diseases of skeletal muscle, paraplegia or quadriplegia, vegetarian diet, rapidly changing kidney function, and calculation of the dose of potentially toxic drugs that are excreted by the kidneys. 100 Concerning GFR GUIDELINES: Normal Function or Mild Renal Disease, if clinically at risk: >/=60mL/min Moderately decreased: 30-59 Severely decreased: 15-29 Renal Failure: <15 101 PER NCEP ATP III GUIDELINES: RESULTS LOWER THAN 40 MG/DL ARE SUGGESTIVE OF INCREASED RISK FOR CORONARY ARTERY DISEASE. RESULTS > OR=TO 60 MG/DL ARE CONSIDERED A NEGATIVE RISK FACTOR. 102 INTERPRETATION OF CHOL-HDL RATIO CHD RISK FEMALE MALE VERY HIGH >8.3 >14.3 HIGH 5.6 - 8.3 6.7 - 14.3 AVERAGE 3.7 - 5.6 4.0 - 6.7 BELOW AVERAGE 2.5 - 3.7 2.7 - 4.0 PROTECTED <2.5 <2.7 103 PER NCEP ATP III GUIDELINES: OPTIMAL: <100 NEAR OPTIMAL: 100 - 129 BORDERLINE HIGH: 130 - 159 HIGH: 160 - 189 VERY HIGH: >189 104 BEGINNING 06/27/06, PSA VALUES ASSAYED AT [employer] USES AN EIA METHODOLOGY MANUFACTURED BY [employer] FOR USE ON THE DXI ANALYZER. VALUES OBTAINED WITH DIFFERENT ASSAY METHODS OR KITS CAN NOT BE USED INTERCHANGEABLY. SERUM PSA MEASUREMENT IS NOT AN ABSOLUTE TEST FOR MALIGNANCY, THE PSA VALUE SHOULD BE USED IN CONJUNCTION WITH INFORMATION AVAILABLE FROM CLINICAL EVALUATION AND OTHER DIAGNOSTIC PROCEDURES. 105 FASTING This sample is drawn by:NB. 106 PER NCEP ATP III GUIDELINES: RESULTS LOWER THAN 40 MG/DL ARE SUGGESTIVE OF INCREASED RISK FOR CORONARY ARTERY DISEASE. RESULTS > OR=TO 60 MG/DL ARE CONSIDERED A NEGATIVE RISK FACTOR. 107 PER NCEP ATP III GUIDELINES: OPTIMAL: <100 NEAR OPTIMAL: 100 - 129 BORDERLINE HIGH: 130 - 159 HIGH: 160 - 189 VERY HIGH: >189 108 INTERPRETATION OF CHOL-HDL RATIO CHD RISK FEMALE MALE VERY HIGH >8.3 >14.3 HIGH 5.6 - 8.3 6.7 - 14.3 AVERAGE 3.7 - 5.6 4.0 - 6.7 BELOW AVERAGE 2.5 - 3.7 2.7 - 4.0 PROTECTED <2.5 <2.7 109 FASTING This sample is drawn by: DB 110 The difference between the most recent result of 9.4 and the current result of 8.8 exceeds the absolute delta value of 0.3 as defined for this test. 111 Concerning GFR GUIDELINES: Normal Function or Mild Renal Disease, if clinically at risk: >/=60mL/min Moderately decreased: 30-59 Severely decreased: 15-29 Renal Failure: <15 Glomerular Filtration Rate (GFR) is estimated based on the MDRD equation, which assumes a steady state for creatinine as recommended by the National Kidney Disease Education Program in conjunction with the National Institutes of Health and the National Kidney Foundation. Clinical conditions in which it may be necessary to measure GFR by using clearance methods include extremes of age and body size, severe malnutrition or obesity, diseases of skeletal muscle, paraplegia or quadriplegia, vegetarian diet, rapidly changing kidney function, and calculation of the dose of potentially toxic drugs that are excreted by the kidneys. 112 Concerning GFR GUIDELINES: Normal Function or Mild Renal Disease, if clinically at risk: >/=60mL/min Moderately decreased: 30-59 Severely decreased: 15-29 Renal Failure: <15 113 PER NCEP ATP III GUIDELINES: RESULTS LOWER THAN 40 MG/DL ARE SUGGESTIVE OF INCREASED RISK FOR CORONARY ARTERY DISEASE. RESULTS > OR=TO 60 MG/DL ARE CONSIDERED A NEGATIVE RISK FACTOR. 114 INTERPRETATION OF CHOL-HDL RATIO CHD RISK FEMALE MALE VERY HIGH >8.3 >14.3 HIGH 5.6 - 8.3 6.7 - 14.3 AVERAGE 3.7 - 5.6 4.0 - 6.7 BELOW AVERAGE 2.5 - 3.7 2.7 - 4.0 PROTECTED <2.5 <2.7 115 PER NCEP ATP III GUIDELINES: OPTIMAL: <100 NEAR OPTIMAL: 100 - 129 BORDERLINE HIGH: 130 - 159 HIGH: 160 - 189 VERY HIGH: >189 116 BEGINNING 06/27/06, PSA VALUES ASSAYED AT [facility] USES AN EIA METHODOLOGY MANUFACTURED BY [employer] FOR USE ON THE DXI ANALYZER. VALUES OBTAINED WITH DIFFERENT ASSAY METHODS OR KITS CAN NOT BE USED INTERCHANGEABLY. SERUM PSA MEASUREMENT IS NOT AN ABSOLUTE TEST FOR MALIGNANCY, THE PSA VALUE SHOULD BE USED IN CONJUNCTION WITH INFORMATION AVAILABLE FROM CLINICAL EVALUATION AND OTHER DIAGNOSTIC PROCEDURES. 117 The difference between the most recent result of 293 and the current result of 179 exceeds the absolute delta value of 50 as defined for this test. 118 PER NCEP ATP III GUIDELINES: RESULTS LOWER THAN 40 MG/DL ARE SUGGESTIVE OF INCREASED RISK FOR CORONARY ARTERY DISEASE. RESULTS > OR=TO 60 MG/DL ARE CONSIDERED A NEGATIVE RISK FACTOR. 119 PER NCEP ATP III GUIDELINES: OPTIMAL <100 NEAR OPTIMAL 100 - 129 BORDERLINE HIGH 130 - 159 HIGH 160 - 189 VERY HIGH >189 120 INTERPRETATION OF CHOL-HDL RATIO CHD RISK FEMALE MALE VERY HIGH >8.3 >14.3 HIGH 5.6 - 8.3 6.7 - 14.3 AVERAGE 3.7 - 5.6 4.0 - 6.7 BELOW AVERAGE 2.5 - 3.7 2.7 - 4.0 PROTECTED <2.5 <2.7 121 BEGINNING 06/27/06, PSA VALUES ASSAYED AT [facility] USES AN EIA METHODOLOGY MANUFACTURED BY [employer] FOR USE ON THE DXI ANALYZER. VALUES OBTAINED WITH DIFFERENT ASSAY METHODS OR KITS CAN NOT BE USED INTERCHANGEABLY. SERUM PSA MEASUREMENT IS NOT AN ABSOLUTE TEST FOR MALIGNANCY, THE PSA VALUE SHOULD BE USED IN CONJUNCTION WITH INFORMATION AVAILABLE FROM CLINICAL EVALUATION AND OTHER DIAGNOSTIC PROCEDURES. 122 The difference between the most recent result of 8.9 and the current result of 9.4 exceeds the absolute delta value of 0.3 as defined for this test. 123 Concerning GFR GUIDELINES: Normal Function or Mild Renal Disease, if clinically at risk: >/=60mL/min Moderately decreased: 30-59 Severely decreased: 15-29 Renal Failure: <15 Glomerular Filtration Rate (GFR) is estimated based on the MDRD equation, which assumes a steady state for creatinine as recommended by the National Kidney Disease Education Program in conjunction with the National Institutes of Health and the National Kidney Foundation. Clinical conditions in which it may be necessary to measure GFR by using clearance methods include extremes of age and body size, severe malnutrition or obesity, diseases of skeletal muscle, paraplegia or quadriplegia, vegetarian diet, rapidly changing kidney function, and calculation of the dose of potentially toxic drugs that are excreted by the kidneys. 124 Concerning GFR GUIDELINES: Normal Function or Mild Renal Disease, if clinically at risk: >/=60mL/min Moderately decreased: 30-59 Severely decreased: 15-29 Renal Failure: <15 125 FASTING 126 PSA VALUES ASSAYED AT [employer] USES AN EIA METHODOLOGY MANUFACTURED BY [employer] FOR USE ON THE NEXIA ANALYZER. VALUES OBTAINED WITH DIFFERENT ASSAY METHODS OR KITS CAN NOT BE USED INT ERCHANGEABLY. SERUM PSA MEASUREMENT IS NOT AN ABSOLUTE TEST FOR MALIGNANCY, THE PSA VALUE SHOULD BE USED IN CONJUNCTION WITH INFORMATION AVAILABLE FROM CLINICAL EVALUATION AND OTHER DIAGNOSTIC PROCEDURES. 127 Normal Function or Mild Renal Disease, if clinically at risk: >/=60 mL/ min Moderately decreased: 30-59 Severely decreased: 15-29 Renal Failure: <15 Glomerular Filtration Rate (GFR) is estimated based on the MDRD equation, which assumes a steady state for creatinine as recommended by the National Kidney Disease Education Program in conjunction with the National Institutes of Health and the National Kidney Foundation. Clinical conditions in which it may be necessary to measure GFR by using clearance methods include extremes of age and body size, severe malnutrition or obesity, diseases of skeletal muscle, paraplegia or quadriplegia, vegetarian diet, rapidly changing kidney function, and calculation of the dose of potentially toxic drugs that are excreted by the kidneys. 128 MELQUIADES 7:00PM NEGIN 129 PSA VALUES ASSAYED AT [facility] USES AN EIA METHODOLOGY MANUFACTURED BY [employer] FOR USE ON THE NEXIA ANALYZER. VALUES OBTAINED WITH DIFFERENT ASSAY METHODS OR KITS CAN NOT BE USED INT ERCHANGEABLY. SERUM PSA MEASUREMENT IS NOT AN ABSOLUTE TEST FOR MALIGNANCY, THE PSA VALUE SHOULD BE USED IN CONJUNCTION WITH INFORMATION AVAILABLE FROM CLINICAL EVALUATION AND OTHER DIAGNOSTIC PROCEDURES. Procedures Date CPT Code Description Status 11/15/2017 46544 Inject/Drain Joint/Bursa Intermediate Completed 06/27/2017 28588 Electrocardiogram Complete Completed 12/20/2016 87864 Electrocardiogram Complete Completed 06/20/2014 63541 Electrocardiogram Complete Completed 05/09/2013 45522 Electrocardiogram Complete Completed 09/18/2012 60840 Electrocardiogram Complete Completed 07/19/2011 70506 Electrocardiogram Complete Completed 07/14/2009 77641 Electrocardiogram Complete Completed 02/17/2005 90704 Electrocardiogram Interpretation & Report Only Completed 02/17/2005 30045 Electrocardiogram Tracing Completed 03/07/2000 92783 Electrocardiogram Complete Completed Encounters Type Date Location Provider CPT E/M Dx Office Visit 12/20/2017 10:00a Silvio Aragon PA G0439 Z00.01 I25.10 I48.0 I10 E78.2 N40.1 C61 C64.1 H47.093 C83.00 Z68.28 R41.0 Z13.89 Office Visit 08/29/2017 8:00[place] [address] I25.10 I48.0 I50.20 I10 E78.2 C61 C64.9 C83.00 Z68.28 Office Visit 09/28/2016 10:40a [place] [address] J15.9 Office Visit 09/20/2016 11:20[place] [address] J01.00 J02.9 Office Visit 08/12/2016 8:00[place] [address] I10 E78.00 I25.10 C61 Z63.79 Office Visit 04/08/2016 9:20a Viv Nguyen PA G0439 Z00.00 I10 E78.00 C61 Office Visit 01/07/2016 8:20[place] [address] I10 E78.0 Office Visit 06/17/2015 9:20[place] [address] I50.20 I10 E78.0 Office Visit 02/28/2015 11:40a Kay Escobar RN MS [employer] TECHNICIAN 83796 J10.2 Office Visit 01/14/2015 8:20a [place]di Shukla MD G0439 428.0 272.0 V70.0 I10 I25.10 N40.1 C61 R73.01 C64.9 R79.9 Office Visit 06/20/2014 11:00[place] [address] V72.84 272.0 595.0 Office Visit 02/18/2014 9:40[place] [address] 595.0 135 272.0 790.93 401.1 185 414.00 Office Visit 11/19/2013 8:20[place] [address] 790.93 401.1 414.01 272.2 600.01 Office Visit 10/29/2013 2:15p [place] [address] 379.90 Office Visit 08/09/2013 8:20a Heydi Shukla MD G0439 790.93 401.1 272.0 414.01 V70.0 411.81 Office Visit 06/21/2013 11:20[place] [address] 414.01 786.09 401.1 272.0 Office Visit 05/09/2013 10:00[place] [address] 413.9 401.1 272.2 424.1 Office Visit 03/19/2013 8:00a [place]és[place] [address] 414.01 401.1 272.2 790.93 Office Visit 09/18/2012 8:00a [place]és[place] [address] 414.01 V70.0 401.1 414.01 272.2 401.1 424.1 272.2 424.1 790.93 724.2 794.31 Office Visit 07/12/2012 2:45p [place]és[place] [address] 790.93 Office Visit 06/07/2012 5:45p [place]és[place] [address] 724.2 790.93 Office Visit 03/06/2012 8:30a [place]és[place] [address] 414.01 401.1 272.2 424.1 790.93 599.72 Office Visit 10/18/2011 8:30a [place]és[place] [address] 414.01 401.1 272.2 424.1 600.01 Office Visit 07/19/2011 8:15a [place]és[place] [address] V70.0 414.01 401.1 272.2 424.1 600.01 302.72 550.92 790.93 794.31 Office Visit 04/01/2011 12:00p Kay Escobar RN MS METROLOGY TECHNICIAN 22614 524.60 401.1 272.2 Office Visit 01/18/2011 8:30a [place]és[place] [address] 401.1 272.2 414.01 600.01 Office Visit 07/13/2010 8:15a [place]és[place] [address] 414.01 272.2 401.1 600.01 Office Visit 01/12/2010 8:45a [place]és[place] [address] 414.01 401.1 272.2 601.0 302.72 424.1 600.01 Office Visit 12/22/2009 12:45p [place]és[place] [address] 788.41 601.0 Office Visit 10/17/2009 8:10a [place]és[place] [address] 414.01 401.1 272.2 790.93 302.72 424.1 Office Visit 07/14/2009 8:10a [place]és[place] [address] 414.01 401.1 272.2 600.01 794.31 Office Visit 01/13/2009 8:10a [place]és[place] [address] 724.2 414.01 272.2 401.1 Office Visit 07/15/2008 8:10a [place]és[place] [address] 401.1 272.2 414.01 788.43 Office Visit 01/15/2008 8:10a [place]és[place] [address] 272.2 401.1 414.01 Office Visit 11/20/2007 2:20p [place]és[place] [address] 569.42 Office Visit 08/04/2007 8:50a [place]és[place] [address] 414.01 401.1 272.2 780.4 Office Visit 07/14/2007 9:20a [place]és[place] [address] 414.01 401.1 272.2 788.43 302.72 389.9 Office Visit 05/11/2006 2:40p [place]és[place] [address] 461.0 465.8 272.2 Office Visit 04/04/2006 9:00a [place]és[place] [address] 401.1 272.2 Office Visit 12/10/2005 8:50a [place]és[place] [address] 272.2 401.1 414.01 Office Visit 09/10/2005 1:00p [place]és[place] [address] 401.1 272.2 414.01 423.9 Office Visit 02/17/2005 2:00p [place]és[place] [address] 401.1 272.2 414.01 Office Visit 12/18/2004 2:50p [place]és[place] [address] 682.7 Office Visit 10/19/2004 9:20a [place]és[place] [address] 272.2 401.1 414.01 787.2 272.0 Office Visit 06/19/2004 9:40a [place]és[place] [address] V76.44 272.2 414.01 607.2 Office Visit 04/10/2004 1:30p [place]és[place] [address] 272.2 401.1 414.01 786.51 Office Visit 01/01/2004 4:40p [place]és[place] [address] 272.2 401.1 423.9 Office Visit 05/11/2000 4:10p [place]és[place] [address] Office Visit 04/11/2000 9:10a [place]és[place] [address] 414.00 Office Visit 03/07/2000 11:20a [place]és[place] [address] 724.3 Plan of Care Future Appointment(s):01/31/2018 8:00 am - Silvio Laurent PA at [id number] - Silvio Laurent PAR19.7 Diarrhea, unspecifiedNew Labs:Stool PanelOva and Parasite Basic-RLComments:see kjwcrC02.0 Disorientation, unspecifiedNew Labs: Ova and Parasite Basic-RLComments:??UTI. ??concerning. d/w and she said that she has not noticed anything different. has been not working with the back pain. she states that she will keep an eye on him and call if concerned. will treat for ?UTI/Prostatitis. Afib but anticoagulated. unlikely CVA unless a bleed but no trauma. last Carotid Doppler 01/2016 with ~40% bilateral UPDATE: still seems quite disoriented. lost 6lbs. noted diarrhea 5-6times per day. will do labs and stool studies.Follow up:f/u 2-1dqfccL61.10 Athscl heart disease of [place] coronary artery w/o ang pctrsNew Labs:Ova and Parasite Basic- RLComments:stable. seeing zybzfbN05.0 Paroxysmal atrial fibrillationComments: bout of a fib. treated in [facility]. EKG in sinus today but still with dizziness. Saw cardio and in Afib on rate control and [id number] Essential (primary) hypertensionComments:stable on meds. f/u with Dr Collado. need to keep metoprolol. No CCB with optic nerve "crowding."E78.2 Mixed hyperlipidemiaComments:stable with recheck [id number] Malignant neoplasm of prostateComments:h/o Lupron 03/05 until 2014. No Lupron for 1.5yrs. Radiation treatment 2014. PSA has been stable. Sees urology and Oncology.N40.1 Benign prostatic hyperplasia with lower urinary tract sympComments:stable w/o s/ s.C83.00 Small cell B-cell lymphoma, unspecified siteComments:followed by Onc.C64.1 Malignant neoplasm of RIGHT kidney, except renal pelvisComments:s/p IjpjkgptablO27.093 Oth disorders of optic nerve, NEC, bilateralComments:sees ophtho -- no CCB'sZ68.27 Body mass index (BMI) 27.0-27.9, adult
--- OUTSIDE RECORDS SUMMARY | 2018-01-16 08:41 | XMS REPORT ---
:1940 External Reference #:[id number] Author Organization [facility] Address [address] [address] Phone [phone] Care Team Providers Name Role Phone Silvio Laurent PA Care Team Information Tunneller Unavailable Payers Type Date Identification Numbers Payment Provider Subscriber Medicare Primary Effective: Policy Number: Medicare Emil Chopraor 2005 [id number] PayID: [id number] [address] [place] [address] [facility] Policy Number: [id number] [facility] Healthcare Options Emil Mitchell Signor PayID: [id number] [address] [place] [address] Problems Date Description Provider Status Onset: 07/13/2017 [...] Active Onset: 07/13/2017 Disorder of optic nerve Biter, Silvio, PA Active Note: Congenital "crowding" -- No [...] Form Strength Qnty SIG Indications Ordering Provider Sulfamethoxazol 12/20/ Hx Tablets 800-160mg 30tab 1 by R41.0 jai Julian/Trimethoprim 2017 - s mouth Taylor DS 01/04/ twice a MD Zeus 2017 day Elbow 11/15/ Active Misc 2unit Wear at M70.22 Eliel Support/Neopren 2018 s all time Taylor e Medium except MD Zeus shower for next 4-6weeks. Lisinopril 10/13/ Active Tablets 10mg 90tab 1 by I10 Eliel, 2017 s mouth Taylor every day MD Zeus Eliquis 06/27/ Active Tablets 5mg 1 by I48.0 Eliel 2017 mouth Taylor twice a MD Zeus day Simvastatin 01/06/ Active Tablets 40mg 90tab Take One E78.2 Eliel, 2015 s Tablet By Taylor Mouth MD Zeus Every Day Metoprolol 07/15/ Active Tablets ER 25mg 90tab 1 by I10 Eliel, Succinate ER 2014 24HR s mouth Taylor every day MD Zeus Aspirin 10/19/ Active Chewtabs 81mg 1 PO qd I25.10 Chloe 2004 MD César Azithromycin 09/28/ Hx Tablets 500mg 5tabs 1 [...] CPT Code Status Date Vaccine Lot # [id number] Refused 12/21/2016 Influenza Vac, 3 Yrs & Older, Quadrivalent, [place] [address] Refused 04/08/2016 Zoster (Zostavax) [id number] Refused 04/08/2016 Pneumococcal 23 Immunization Adult Or Immunosuppressed Patient 39896 Refused 04/08/2016 Immunization Td 7 Yrs Or Older 92291 Refused 04/08/2016 Prevnar 13 Pneumococal Conjugate Vaccine 89831 Refused 04/08/2016 Afluria Or Fluvirin Flu Vac Intramuscular Vital Signs Date Vital Result Comment 12/20/2017 Weight 191.25 lb Heart Rate 76 [...] Result H/L Range Note Laboratory test finding 12/20/2017 Urine Culture <pending> Magnesium <pending> Laboratory test finding 12/20/2017 PSA <pending> Comprehensive Met Panel-[facility] 12/20/2016 Sodium 142 mmol/L 135-146 1 Potassium 5.7 No visible h <SEE NOTE> mmol/L High 3.5-5.2 2 Chloride# 107 mmol/L 97-110 3 Carbon Dioxide 29 mmol/L 24-34 Glucose 95 mg/dL 70-105 BUN 14 mg/dL 6-26 Creatinine 1.1 mg/dL 0.5-1.4 Calcium 9.5 mg/dL 8.5-10.2 Total Protein 6.7 g/dL 6.0-8.0 Albumin 4.3 g/dL 3.6-4.9 Globulin 2.4 g/dL 2.0-3.5 A/G Ratio 1.8 Ratio 1.0-2.2 Total Bilirubin 0.4 mg/dL 0.1-1.3 Alkaline Phosphatase 84 U/L 24-140 Alt 10 U/L 3-42 Ast 15 U/L 8-42 Connie Egfr >60 >60 4 Non Connie Egfr >60 >60 5 Anion Gap 6 mmol/L Low 7-16 6 Lipid 12/20/2016 Cholesterol 162 mg/dL 50-199 Triglycerides 174 mg/dL 30-200 HDL 38 mg/dL 29-71 7 Chol/ HDL Ratio 4.3 ratio 4.0-6.7 VLDL 35 mg/dL High 2-29 LDL (Calc) 90 mg/dL 20-99 8 Comprehensive Metabolic (CMP) 04/08/2016 Sodium 139 mmol/L [...] 9 mmol/L 6-14 Connie Egfr >60 >60 9 Non Connie Egfr >60 >60 10 CBC With Auto Diff 04/08/2016 WBC 7.0 [...] K/uL 0.0-0.5 Abs Basophils 0.1 K/uL 0.0-0.3 Lipid 04/08/2016 Cholesterol 163 mg/dL 50-199 Triglycerides 143 mg/dL 30-200 HDL 39 mg/dL 29-71 11 Chol/ HDL Ratio 4.2 ratio 4.0-6.7 VLDL 29 mg/dL 2-29 LDL (Calc) 95 mg/dL 20-99 12 Laboratory test finding 04/08/2016 TSH 3.58 uIU/mL 0.35-4.94 PSA 0.020 ng/mL 0.000-4.000 13 Laboratory test finding 01/14/2015 B Natriuretic Pep 145 pg/mL High (0-100 ) 14 Laboratory test finding 01/14/2015 Hemoglobin A1c 6.2 % High 4.1-5.9 Manual Differential 01/14/2015 Neutrophils 63 % 35-75 [...] 0.2 K/ul 0.0-1.2 Laboratory test finding 01/14/2015 TSH 3.84 uIU/mL 0.35-4.94 Magnesium 1.9 mg/dL 1.5-2.7 PSA 0.050 ng/mL 0.000-4.000 15 Vitamin B12 296 pg/mL 180-914 Lipid 01/14/2015 Cholesterol 160 mg/dL 50-199 Triglycerides 210 mg/dL High 30-200 HDL 33 mg/dL 29-71 16 Chol/ HDL Ratio 4.8 ratio 4.0-6.7 VLDL 42 mg/dL High 2-29 LDL (Calc) 85 mg/dL 20-99 17 Comprehensive Metabolic (CMP) 01/14/2015 Sodium 140 mmol/L [...] 10 mmol/L 6-14 Connie Egfr >60 >60 18 Non Connie Egfr >60 >60 19 CBC With Auto Diff 01/14/2015 WBC 5.8 K/uL 4.1-11.0 RBC 4.75 M/uL 4.60-6.10 Hemoglobin 13.4 gm/dL Low 13.5-18.0 Hematocrit 41.0 % 41.0-53.0 MCV 86.4 fL 80.0-97.0 MCH 28.2 pg 27.0-32.0 MCHC 32.7 g/dL 32.0-36.0 RDW 13.7 % 11.5-14.5 PLT Count 164 K/ul 140-400 CBC With Auto Diff 07/15/2014 WBC 9.3 K/uL 4.1-11.0 20 RBC 4.78 M/uL 4.60-6.10 20 Hemoglobin 13.6 gm/dL 13.5-18.0 20 Hematocrit 41.5 % 41.0-53.0 20 MCV 86.7 fL 80.0-97.0 20 MCH 28.5 pg 27.0-32.0 20 MCHC 32.8 g/dL 32.0-36.0 20 RDW 14.0 % 11.5-14.5 20 PLT Count 451 K/ul High 140-400 20 Neutrophil 57.9 % 35.0-75.0 20 Lymphocyte 24.1 % 16.0-52.0 20 Monocyte 12.4 % High 2.0-10.0 20 Eosinophil 4.3 % 0.0-5.0 20 Basophil 1.3 % 0.0-4.0 20 Abs Neutrophils 5.4 K/uL 2.1-8.0 20 Abs Lymphocytes 2.2 K/uL 0.8-5.5 20 Abmon 1.2 K/uL High 0.1-1.0 20 Abs Eosinophils 0.4 K/uL 0.0-0.5 20 Abs Basophils 0.1 K/uL 0.0-0.3 20 Comprehensive Metabolic (CMP) 07/15/2014 Sodium 136 mmol/L 134-142 20 Potassium 5.6 No visible h <SEE NOTE> mmol/L High 3.5-5.2 20, 21 Chloride 101 mmol/L 97-109 20 Carbon Dioxide 30 mmol/L 24-34 20 Glucose 96 mg/dL 70-105 20 BUN 20 mg/dL 6-26 20 Creatinine 1.3 mg/dL 0.5-1.4 20 Calcium 9.5 mg/dL 8.5-10.2 20 Total Protein 6.8 g/dL 6.0-8.0 20 Albumin 4.2 g/dL 3.6-4.9 20 Globulin 2.6 g/dL 2.0-3.5 20 A/G Ratio 1.6 Ratio 1.0-2.2 20 Total Bilirubin 0.4 mg/dL 0.1-1.3 20 Alkaline Phosphatase 175 U/L High 24-140 20 Alt 45 U/L High 3-42 20 Ast 39 U/L 8-42 20 Anion Gap 11 mmol/L 6-14 20 Connie Egfr >60 >60 20, 22 Non Connie Egfr 56 Low >60 20, 23 Laboratory test finding 07/15/2014 Magnesium 2.4 mg/dL 1.5-2.7 20 PSA 0.880 ng/mL 0.000-4.000 20, 24 Laboratory test finding 07/15/2014 B Natriuretic Pep 137 pg/mL High (0-100 ) 20, 25 Rout Urine W/ Micro -RL 07/15/2014 Color YELLOW 20 Appearance CLEAR 20 Spec Grav Urine 1.014 (1.003-1.030) 20 PH Urine 5.5 (5.0-7.5) 20 Leuk Esterase NEGATIVE (Neg) 20 Nitrite Urine NEGATIVE (Neg) 20 Protein Urine NEGATIVE (Neg) 20 Glucose Urine NEGATIVE (Neg) 20 Ketone Urine NEGATIVE (Neg) 20 Urobilinogen 0.2 mg/dL (0-1.0) 20 Bilirubin Urine NEGATIVE (Neg) 20 Blood/HGB Urine NEGATIVE (Neg) 20 Urine WBC 0-2 [HPF] (0-5) 20 Urine RBC 0-2 [HPF] (0-2) 20, 26 Protime 06/21/2014 PT 10.3 s (9.2-11.9) 27 Inr 0.97 27, 28 Laboratory test finding 06/21/2014 Aptt 27.1 s (22.0-32.6) 27, 29 Rout Urine W/ Micro -RL 06/21/2014 Color YELLOW 27 Appearance CLEAR 27 Spec Grav Urine 1.009 (1.003-1.030) 27 PH Urine 6.5 (5.0-7.5) 27 Leuk Esterase NEGATIVE (Neg) 27 Nitrite Urine NEGATIVE (Neg) 27 Protein Urine NEGATIVE (Neg) 27 Glucose Urine NEGATIVE (Neg) 27 Ketone Urine NEGATIVE (Neg) 27 Urobilinogen 0.2 mg/dL (0-1.0) 27 Bilirubin Urine NEGATIVE (Neg) 27 Blood/HGB Urine NEGATIVE (Neg) 27 Epithelial Cells NEGATIVE [HPF] (Neg) 27 Hyaline Casts 0.3 [LPF] (0-5) 27 Bacteria NEGATIVE [HPF] (Neg) 27 Urine WBC 0.4 [HPF] (0-8) 27 Urine RBC 0.4 [HPF] (0-3) 27, 30 Laboratory test finding 06/21/2014 Cytology Fluid SEE NOTE 27, 31 Specimen Laboratory test finding 06/20/2014 Magnesium 2.0 mg/dL 1.5-2.7 32 Comprehensive Metabolic 06/20/2014 Sodium 140 mmol/L 134-142 32 (CMP) Potassium 4.7 mmol/L 3.5-5.2 32 Chloride 104 mmol/L 97-109 32 Carbon Dioxide 28 mmol/L 24-34 32 Glucose 78 mg/dL 70-105 32 BUN 18 mg/dL 6-26 32 Creatinine 0.8 mg/dL 0.5-1.4 32 Calcium 9.4 mg/dL 8.5-10.2 32 Total Protein 6.5 g/dL 6.0-8.0 32 Albumin 4.4 g/dL 3.6-4.9 32 Globulin 2.1 g/dL 2.0-3.5 32 A/G Ratio 2.1 Ratio 1.0-2.2 32 Total Bilirubin 0.7 mg/dL 0.1-1.3 32 Alkaline Phosphatase 77 U/L 24-140 32 Alt 15 U/L 3-42 32 Ast 19 U/L 8-42 32 Anion Gap 13 mmol/L 6-14 32 Connie Egfr >60 >60 32, 33 Non Connie Egfr >60 >60 32, 34 CBC With Auto Diff 06/20/2014 WBC 10.1 K/uL 4.1-11.0 32 RBC 4.90 M/uL 4.60-6.10 32 Hemoglobin 14.1 gm/dL 13.5-18.0 32 Hematocrit 41.5 % 41.0-53.0 32 MCV 84.8 fL 80.0-97.0 32 MCH 28.7 pg 27.0-32.0 32 MCHC 33.9 g/dL 32.0-36.0 32 RDW 13.8 % 11.5-14.5 32 PLT Count 201 K/ul 140-400 32 Neutrophil 57.0 % 35.0-75.0 32 Lymphocyte 26.8 % 16.0-52.0 32 Monocyte 11.6 % High 2.0-10.0 32 Eosinophil 3.7 % 0.0-5.0 32 Basophil 0.9 % 0.0-4.0 32 Abs Neutrophils 5.7 K/uL 2.1-8.0 32 Abs Lymphocytes 2.7 K/uL 0.8-5.5 32 Abmon 1.2 K/uL High 0.1-1.0 32 Abs Eosinophils 0.4 K/uL 0.0-0.5 32 Abs Basophils 0.1 K/uL 0.0-0.3 32 CBC With Auto Diff 02/18/2014 WBC 7.7 [...] K/uL 0.0-0.5 Abs Basophils 0.1 K/uL 0.0-0.3 Comprehensive Metabolic (CMP) 02/18/2014 Sodium 138 mmol/L [...] 10 mmol/L 6-14 Connie Egfr >60 >60 35 Non Connie Egfr >60 >60 36 Lipid 02/18/2014 Cholesterol 157 mg/dL 50-199 Triglycerides 100 mg/dL 30-200 HDL 36 mg/dL 29-71 37 Chol/ HDL Ratio 4.4 ratio 4.0-6.7 VLDL 20 mg/dL 2-29 LDL (Calc) 101 mg/dL High 20-99 38 Laboratory test finding 02/18/2014 PSA 9.630 Results ve <SEE High 0.000- 4.000 39 NOTE> ng/mL Magnesium 2.0 mg/dL 1.5-2.7 Urine Culture Microbiology res <SEE NOTE> 40 Urinalysis-RL 02/18/2014 Color YELLOW 41 Appearance CLEAR 41 Spec Grav Urine 1.014 (1.003-1.030) 41 PH Urine 6.0 (5.0-7.5) 41 Leuk Esterase NEGATIVE (Neg) 41 Nitrite Urine NEGATIVE (Neg) 41 Protein Urine NEGATIVE (Neg) 41 Glucose Urine NEGATIVE (Neg) 41 Ketone Urine NEGATIVE (Neg) 41 Urobilinogen 0.2 mg/dL (0-1.0) 41 Bilirubin Urine NEGATIVE (Neg) 41 Blood/HGB Urine NEGATIVE (Neg) 41, 42 Laboratory test finding 02/18/2014 Ang Convert Enz BLD <5 U/L Low 41, 43 PSA Total And Free -RL 08/09/2013 PSA Total 9.9 NG/ML High (0.0-4.0) 41 PSA Free 1.0 NG/ML 41 PSA % Free 10 % 41, 44 Laboratory test finding 08/09/2013 TSH 5.47 uIU/mL 0.34-5.60 41 Vitamin B12 234 pg/mL 180-914 41 Magnesium 2.1 mg/dL 1.5-2.7 41 Lipid 08/09/2013 Cholesterol 162 mg/dL 50-199 41 Triglycerides 177 mg/dL 30-200 41 HDL 33 mg/dL 29-71 41, 45 Chol/ HDL Ratio 4.9 ratio 4.0-6.7 41 VLDL 35 mg/dL High 2-29 41 LDL (Calc) 94 mg/dL 20-99 41, 46 Comprehensive Metabolic (CMP) 08/09/2013 Sodium 140 mmol/L 134-142 41 Potassium 4.7 mmol/L 3.5-5.2 41 Chloride 106 mmol/L 97-109 41 Carbon Dioxide 31 mmol/L 24-34 41 Glucose 97 mg/dL 70-105 41 BUN 16 mg/dL 6-26 41 Creatinine 0.8 mg/dL 0.5-1.4 41 Calcium 9.1 mg/dL 8.5-10.2 41 Total Protein 6.3 g/dL 6.0-8.0 41 Albumin 4.0 g/dL 3.6-4.9 41 Globulin 2.3 g/dL 2.0-3.5 41 A/G Ratio 1.7 Ratio 1.0-2.2 41 Total Bilirubin 0.7 mg/dL 0.1-1.3 41 Alkaline Phosphatase 72 U/L 24-140 41 Alt 13 U/L 3-42 41 Ast 17 U/L 8-42 41 Anion Gap 8 mmol/L 6-14 41 Connie Egfr >60 >60 41, 47 Non Connie Egfr >60 >60 41, 48 CBC With Auto Diff 08/09/2013 WBC 8.1 K/uL 4.1-11.0 41 RBC 5.08 M/uL 4.60-6.10 41 Hemoglobin 14.5 gm/dL 13.5-18.0 41 Hematocrit 42.3 % 41.0-53.0 41 MCV 83.2 fL 80.0-97.0 41 MCH 28.6 pg 27.0-32.0 41 MCHC 34.4 g/dL 32.0-36.0 41 RDW 13.5 % 11.5-14.5 41 PLT Count 188 K/ul 140-400 41 Neutrophil 45.9 % 35.0-75.0 41 Lymphocyte 37.6 % 16.0-52.0 41 Monocyte 12.0 % High 2.0-10.0 41 Eosinophil 3.5 % 0.0-5.0 41 Basophil 1.0 % 0.0-4.0 41 Abs Neutrophils 3.7 K/uL 2.1-8.0 41 Abs Lymphocytes 3.0 K/uL 0.8-5.5 41 Abmon 1.0 K/uL 0.1-1.0 41 Abs Eosinophils 0.3 K/uL 0.0-0.5 41 Abs Basophils 0.1 K/uL 0.0-0.3 41 Comprehensive Metabolic (CMP) 03/19/2013 Sodium 142 mmol/L 134-142 41 Potassium 5.1 mmol/L 3.5-5.2 41 Chloride 106 mmol/L 97-109 41 Carbon Dioxide 31 mmol/L 24-34 41 Glucose 120 mg/dL High 70-105 41 BUN 14 mg/dL 6-26 41 Creatinine 0.9 mg/dL 0.5-1.4 41 Calcium 9.1 mg/dL 8.5-10.2 41 Total Protein 6.4 g/dL 6.0-8.0 41 Albumin 4.3 g/dL 3.6-4.9 41 Globulin 2.1 g/dL 2.0-3.5 41 A/G Ratio 2.0 Ratio 1.0-2.2 41 Total Bilirubin 0.5 mg/dL 0.1-1.3 41 Alkaline Phosphatase 90 U/L 24-140 41 Alt 19 U/L 3-42 41 Ast 18 U/L 8-42 41 Anion Gap 10 mmol/L 6-14 41 Connie Egfr >60 >60 41, 49 Non Connie Egfr >60 >60 41, 50 Lipid 03/19/2013 Cholesterol 191 mg/dL 50-199 41 Triglycerides 198 mg/dL 30-200 41 HDL 38 mg/dL 29-71 41, 51 Chol/ HDL Ratio 5.0 ratio 4.0-6.7 41 VLDL 40 mg/dL High 2-29 41 LDL (Calc) 113 mg/dL High 20-99 41, 52 CBC With Auto Diff 03/19/2013 WBC 12.1 K/uL High 4.1-11.0 41 RBC 5.31 M/uL 4.60-6.10 41 Hemoglobin 15.0 gm/dL 13.5-18.0 41 Hematocrit 45.5 % 41.0-53.0 41 MCV 85.6 fL 80.0-97.0 41 MCH 28.3 pg 27.0-32.0 41 MCHC 33.0 g/dL 32.0-36.0 41 RDW 13.8 % 11.5-14.5 41 PLT Count 203 K/ul 140-400 41 Neutrophil 43.7 % 35.0-75.0 41 Lymphocyte 43.2 % 16.0-52.0 41 Monocyte 9.1 % 2.0-10.0 41 Eosinophil 3.0 % 0.0-5.0 41 Basophil 1.0 % 0.0-4.0 41 Abs Neutrophils 5.3 K/uL 2.1-8.0 41 Abs Lymphocytes 5.3 K/uL 0.8-5.5 41 Abmon 1.1 K/uL High 0.1-1.0 41 Abs Eosinophils 0.4 K/uL 0.0-0.5 41 Abs Basophils 0.1 K/uL 0.0-0.3 41 Laboratory test finding 03/19/2013 TSH 3.91 uIU/mL 0.34-5.60 41 Comprehensive Metabolic (CMP) 09/18/2012 Sodium 141 mmol/L 134-142 41 Potassium 5.0 mmol/L 3.5-5.2 41 Chloride 107 mmol/L 97-109 41 Carbon Dioxide 32 mmol/L 24-34 41 Glucose 102 mg/dL 70-105 41 BUN 14 mg/dL 6-26 41 Creatinine 0.8 mg/dL 0.5-1.4 41 Calcium 9.0 mg/dL 8.5-10.2 41 Total Protein 6.2 g/dL 6.0-8.0 41 Albumin 4.0 g/dL 3.6-4.9 41 Globulin 2.2 g/dL 2.0-3.5 41 A/G Ratio 1.8 Ratio 1.0-2.2 41 Total Bilirubin 0.5 mg/dL 0.1-1.3 41 Alkaline Phosphatase 80 U/L 24-140 41 Alt 22 U/L 3-42 41 Ast 23 U/L 8-42 41 Anion Gap 7 mmol/L 6-14 41 Connie Egfr >60 >60 41, 53 Non Connie Egfr >60 >60 41, 54 CBC With Auto Diff 09/18/2012 WBC 10.2 K/uL 4.1-11.0 41 RBC 5.13 M/uL 4.60-6.10 41 Hemoglobin 14.7 gm/dL 13.5-18.0 41 Hematocrit 44.0 % 41.0-53.0 41 MCV 85.7 fL 80.0-97.0 41 MCH 28.6 pg 27.0-32.0 41 MCHC 33.4 g/dL 32.0-36.0 41 RDW 13.5 % 11.5-14.5 41 PLT Count 187 K/ul 140-400 41 Neutrophil 41.5 % 35.0-75.0 41 Lymphocyte 43.9 % 16.0-52.0 41 Monocyte 10.2 % High 2.0-10.0 41 Eosinophil 3.8 % 0.0-5.0 41 Basophil 0.6 % 0.0-4.0 41 Abs Neutrophils 4.2 K/uL 2.1-8.0 41 Abs Lymphocytes 4.5 K/uL 0.8-5.5 41 Abs Monocytes 1.0 K/uL 0.1-1.0 41 Abs Eosinophils 0.4 K/uL 0.0-0.5 41 Abs Basophils 0.1 K/uL 0.0-0.3 41 Lipid 09/18/2012 Cholesterol 162 mg/dL 50-199 41 Triglycerides 128 mg/dL 30-200 41 HDL 35 mg/dL -71 41, 55 Chol/ HDL Ratio 4.6 ratio 4.0-6.7 41 VLDL 26 mg/dL 2-29 41 LDL (Calc) 101 mg/dL High 20-99 41, 56 Laboratory test finding 09/18/2012 TSH 2.65 uIU/mL 0.34-5.60 41 CRP-High 2.45 mg/L 0.00-9.90 41, 57 PSA Total And Free -RL 07/12/2012 PSA Total 6.6 NG/ML High (0.0-4.0) PSA Free 0.7 NG/ML PSA % Free 11 % 58 Lipid 03/06/2012 Cholesterol 177 mg/dL 50-199 41 Triglycerides 196 mg/dL 30-200 41 HDL 32 mg/dL 29-71 41, 59 Chol/ HDL Ratio 5.5 ratio 4.0-6.7 41 VLDL 39 mg/dL High 2-29 41 LDL (Calc) 106 mg/dL 20-129 41, 60 Comprehensive Metabolic (CMP) 03/06/2012 Sodium 141 mmol/L 134-142 41 Potassium 4.3 mmol/L 3.5-5.2 41 Chloride 104 mmol/L 97-109 41 Carbon Dioxide 30 mmol/L 24-34 41 Glucose 109 mg/dL High 70-105 41 BUN 13 mg/dL 6-26 41 Creatinine 0.8 mg/dL 0.5-1.4 41 Calcium 9.1 mg/dL 8.5-10.2 41 Total Protein 6.2 g/dL 6.0-8.0 41 Albumin 4.0 g/dL 3.6-4.9 41 Globulin 2.2 g/dL 2.0-3.5 41 A/G Ratio 1.8 Ratio 1.0-2.2 41 Total Bilirubin 0.4 mg/dL 0.1-1.3 41 Alkaline Phosphatase 82 U/L 24-140 41 Alt 15 U/L 3-42 41 Ast 16 U/L 8-42 41 Anion Gap 11 mmol/L 6-14 41 Connie Egfr >60 >60 41, 61 Non Connie Egfr >60 >60 41, 62 CBC With Auto Diff 07/19/2011 WBC 10.7 K/uL 4.1-11.0 41 RBC 5.10 M/uL 4.60-6.10 41 Hemoglobin 14.7 gm/dL 13.5-18.0 41 Hematocrit 42.8 % 41.0-53.0 41 MCV 83.9 fL 80.0-97.0 41 MCH 28.9 pg 27.0-32.0 41 MCHC 34.4 g/dL 32.0-36.0 41 RDW 13.6 % 11.5-14.5 41 PLT Count 200 K/ul 140-400 41 Neutrophil 51.6 % 35.0-75.0 41 Lymphocyte 33.5 % 16.0-52.0 41 Monocyte 11.9 % High 2.0-10.0 41 Eosinophil 2.4 % 0.0-5.0 41 Basophil 0.6 % 0.0-4.0 41 Abs Neutrophils 5.5 K/uL 2.1-8.0 41 Abs Lymphocytes 3.6 K/uL 0.8-5.5 41 Abs Monocytes 1.3 K/uL High 0.1-1.0 41 Abs Eosinophils 0.3 K/uL 0.0-0.5 41 Abs Basophils 0.1 K/uL 0.0-0.3 41 Comprehensive Metabolic (CMP) 07/19/2011 Sodium 139 mmol/L 134-142 41 Potassium 4.1 mmol/L 3.5-5.2 41 Chloride 105 mmol/L 97-109 41 Carbon Dioxide 27 mmol/L 24-34 41 Glucose 104 mg/dL 70-105 41 BUN 14 mg/dL 6-26 41 Creatinine 0.8 mg/dL 0.5-1.4 41 Calcium 9.0 mg/dL 8.5-10.2 41 BUN/CR 18 ratio 12-20 41 Total Protein 6.0 g/dL 6.0-8.0 41 Albumin 4.0 g/dL 3.6-4.9 41 Globulin 2.0 g/dL 2.0-3.5 41 A/G Ratio 2.0 Ratio 1.0-2.2 41 Total Bilirubin 0.4 mg/dL 0.1-1.3 41 Alkaline Phosphatase 83 U/L 24-140 41 Alt 22 U/L 3-42 41 Ast 18 U/L 8-42 41 Anion Gap 11 mmol/L 6-14 41 Connie Egfr >60 >60 41, 63 Non Connie Egfr >60 >60 41, 64 PSA Total And Free -RL 07/19/2011 PSA Total 6.9 NG/ML High (0.0-4.0) 41 PSA Free 0.6 NG/ML 41 PSA % Free 9 % 41, 65 Laboratory test finding 07/19/2011 TSH 5.07 uIU/mL 0.34-5.60 41 Lipid 07/19/2011 Cholesterol 197 mg/dL 50-199 41 Triglycerides 178 mg/dL 30-200 41 HDL 39 mg/dL - 41, 66 Chol/ HDL Ratio 5.1 ratio 4.0-6.7 41 VLDL 36 mg/dL High 2- 41 LDL (Calc) 122 mg/dL 20-129 41, 67 Lipid 01/18/2011 Cholesterol 147 mg/dL 50-199 41 Triglycerides 100 mg/dL 10-150 41 HDL 32 mg/dL 29-71 41, 68 Chol/ HDL Ratio 4.6 ratio 4.0-6.7 41 VLDL 20 mg/dL 2- 41 LDL (Calc) 95 mg/dL 20-129 41, 69 Comprehensive Metabolic (CMP) 01/18/2011 Sodium 140 mmol/L 135-144 41 Potassium 3.8 mmol/L 3.6-5.2 41 Chloride 108 mmol/L 97-110 41 Carbon Dioxide 25 mmol/L 23-32 41 Glucose 77 mg/dL 70-105 41 BUN 16 mg/dL 6-22 41 Creatinine 0.8 mg/dL 0.5-1.3 41 Calcium 8.8 mg/dL 8.6-10.2 41 BUN/CR 20 ratio 12-20 41 Total Protein 6.1 g/dL 5.8-7.8 41 Albumin 3.6 g/dL 3.5-4.8 41 Globulin 2.5 g/dL 2.0-3.5 41 A/G Ratio 1.4 Ratio 1.0-2.2 41 Total Bilirubin 0.5 mg/dL 0.3-1.2 41 Alkaline Phosphatase 74 U/L 24-140 41 Alt 21 U/L 5-45 41 Ast 22 U/L 12-40 41 Anion Gap 11 mmol/L 8-16 41 Non Connie Egfr >60 >60 41, 70 Connie Egfr >60 >60 41, 71 PSA Total And Free -RL 01/18/2011 PSA Total 4.6 NG/ML High (0.0-4.0) 41 PSA Free 0.5 NG/ML 41 PSA % Free 11 % 41, 72 CBC With Auto Diff 07/13/2010 WBC 9.7 K/uL 4.1-11.0 41 RBC 5.27 M/uL 4.60-6.10 41 HGB 15.3 gm/dL 13.5-18.0 41 HCT 45.1 % 41.0-53.0 41 MCV 85.7 fL 80.0-97.0 41 MCH 29.0 pg 27.0-32.0 41 MCHC 33.8 g/dL 32.0-36.0 41 RDW 13.3 % 11.5-14.5 41 PLT 200 K/ul 140-400 41 NE% 45.6 % 35.0-75.0 41 Ly% 38.4 % 16.0-52.0 41 Mo% 12.1 % High 2.0-10.0 41 Eo% 2.5 % 0.0-5.0 41 Ba% 1.4 % 0.0-4.0 41 NE# 4.4 K/uL 2.1-8.0 41 Ly# 3.7 K/uL 0.8-5.5 41 Mo# 1.2 K/uL High 0.1-1.0 41 Eo# 0.2 K/uL 0.0-0.5 41 Ba# 0.1 K/uL 0.0-0.3 41 Lipid 07/13/2010 Cholesterol 177 mg/dL 50-199 41 Triglycerides 140 mg/dL 10-150 41 HDL 41 mg/dL 29-71 41, 73 Chol/HDL 4.3 ratio 4.0-6.7 41 VLDL 28 mg/dL 2-29 41 LDL 108 mg/dL 20-129 41, 74 Comprehensive Metabolic (CMP) 07/13/2010 Sodium 142 mmol/L 135-144 41 Potassium 4.3 mmol/L 3.6-5.2 41 Chloride 106 mmol/L 97-110 41 Carbon Dioxide 29 mmol/L 23-32 41 Glucose 97 mg/dL 70-105 41 BUN 13 mg/dL 6-22 41 Creatinine 0.9 mg/dL 0.5-1.3 41 Calcium 9.0 mg/dL 8.6-10.2 41 BUN/CR 14 ratio 12-20 41 Total Protein 5.9 g/dL 5.8-7.8 41 Albumin 3.7 g/dL 3.5-4.8 41 Globulin 2.2 g/dL 2.0-3.5 41 A/G Ratio 1.7 Ratio 1.0-2.2 41 Tbili 0.7 mg/dL 0.3-1.2 41 Alk Phos 87 U/L 24-140 41 Alt 18 U/L 5-45 41 Ast 22 U/L 12-40 41 Anion Gap 11 mmol/L 8-16 41 NAAeGFR >60 >60 41, 75 AAeGFR >60 >60 41, 76 CMP 01/12/2010 Sodium 140 mmol/L 135-144 41 Potassium 4.7 mmol/L 3.6-5.2 41 Chloride 106 mmol/L 97-110 41 Carbon Dioxide 27 mmol/L 23-32 41 Glucose 103 mg/dL (70-99) 41 BUN 13 mg/dL 6-22 41 Creatinine 0.9 mg/dL 0.5-1.3 41 BUN/CR 14 Ratio 41 Calcium 9.0 mg/dL 8.6-10.2 41 Total Protein 5.8 g/dL 5.8-7.8 41 Albumin 3.6 g/dL 3.5-4.8 41 Globulin 2.2 g/dL 2.0-3.5 41 A/G Ratio 1.6 Ratio 1.0-2.2 41 Total Bilirubin 0.7 mg/dL 0.3-1.2 41 Alkaline Phosphatase 79 U/L 24-140 41 Alt 31 U/L 5-45 41 Ast 30 U/L 12-40 41 Anion Gap 12 mmol/L 8-16 41 GFR Calculation > 60 mL/min 60-175 41, 77 GFR For > 60 mL/min 60-175 41, 78 Lipid Panel 01/12/2010 Cholesterol 182 mg/dL 50-199 41 Triglycerides 144 mg/dL 10-150 41 HDL 37 mg/dL 29-71 41, 79 Chol/HDL Ratio 4.9 Ratio 4.0-6.7 41, 80 VLDL 29 mg/dL 2-29 41 LDL (Calc) 116 mg/dL 20-129 41, 81 PSA Free & Total -LA 10/17/2009 PSA, Total-LA 3.3 NG/ML 0.0-4.0 41 PSA, Free 0.4 NG/ML 41 PSA, % Free - LA 12 % 41, 82 Lipid TX Panel 10/17/2009 Ast 24 U/L 12-40 41 Alt 21 U/L 5-45 41 Cholesterol 148 mg/dL 50-199 41, 83 Triglycerides 109 mg/dL 10-150 41 HDL 28 mg/dL Low 29-71 41, 84 LDL (Calc) 98 mg/dL 20-129 41, 85 Chol/HDL Ratio 5.3 Ratio 4.0-6.7 41, 86 VLDL 22 mg/dL 2-29 41 CMP 07/14/2009 Sodium 142 mmol/L 135-144 87 Potassium 4.3 mmol/L 3.6-5.2 87, 88 Chloride 106 mmol/L 97-110 87 Carbon Dioxide 29 mmol/L 23-32 87 Glucose 101 mg/dL 70-105 87 BUN 11 mg/dL 6-22 87 Creatinine 0.8 mg/dL 0.5-1.3 87 BUN/CR 14 Ratio 87 Calcium 8.9 mg/dL 8.6-10.2 87 Total Protein 5.8 g/dL 5.8-7.8 87 Albumin 3.7 g/dL 3.5-4.8 87 Globulin 2.1 g/dL 2.0-3.5 87 A/G Ratio 1.8 Ratio 1.0-2.2 87 Total Bilirubin 0.4 mg/dL 0.3-1.2 87, 89 Alkaline Phosphatase 71 U/L 24-140 87 Alt 18 U/L 5-45 87 Ast 21 U/L 12-40 87 Anion Gap 11 mmol/L 8-16 87 GFR Calculation > 60 mL/min 60-175 87, 90 GFR For > 60 mL/min 60-175 87, 91 CBC With Auto Diff 07/14/2009 WBC 8.7 K/ul 4.0-10.9 87 RBC 5.12 M/ul 4.70-6.10 87 Hemoglobin 14.7 GM/dl 13.5-18.0 87 Hematocrit 43.7 % 42.0-52.0 87 MCV 85.3 FL 80.0-97.0 87 MCH 28.7 pg 27.0-31.0 87 MCHC 33.7 g/dL 32.0-36.0 87 RDW 13.6 % 11.5-14.5 87 Platelet Count 182 K/ul 140-440 87 Neutrophils 52.1 % 50-70 87 Lymphocytes 30.4 % 20-44 87 Monocytes 12.6 % High 2-9 87 Eosinophil 3.1 % 0-4 87 Basophil 1.8 % 0-2 87 Absolute Neutrophils 4.6 K/ul 2.05-7.63 87 Absolute Lymphocytes 2.7 K/ul 0.8-4.8 87 Absolute Monocytes 1.1 K/ul High 0.1-1.0 87 Absolute Eosinophils 0.3 K/ul 0.1-0.5 87 Absolute Basophils 0.2 K/ul 0.0-0.3 87 Hematology Comment (Comm2) N/A 87 Lipid Panel 07/14/2009 Cholesterol 209 mg/dL High 50-199 87 Triglycerides 155 mg/dL High 10-150 87 HDL 35 mg/dL 29-71 87, 92 Chol/HDL Ratio 6.0 Ratio 4.0-6.7 87, 93 VLDL 31 mg/dL High 2-29 87 LDL (Calc) 143 mg/dL High 20-129 87, 94 Laboratory test finding 07/14/2009 PSA 4.33 ng/ml High 0.00-4.00 87, 95 Lipid TX Panel 01/13/2009 Ast 25 U/L 12-40 96 Alt 25 U/L 5-45 96 Cholesterol 211 mg/dL High 50-199 96 Triglycerides 138 mg/dL 10-150 96 HDL 38 mg/dL 29-71 96, 97 LDL (Calc) 145 mg/dL High 20-129 96, 98 Chol/HDL Ratio 5.6 Ratio 4.0-6.7 96, 99 VLDL 28 mg/dL 2-29 96 CMP 07/15/2008 Sodium 142 mmol/L 135-144 100 Potassium 4.9 mmol/L 3.6-5.2 100 Chloride 108 mmol/L 97-110 100 Carbon Dioxide 30 mmol/L 23-33 100 Glucose 99 mg/dL 70-105 100 BUN 12 mg/dL 6-22 100 Creatinine 0.8 mg/dL 0.5-1.3 100 BUN/CR 15 Ratio 12.0-20.0 100 Calcium 8.8 mg/dL 8.6-10.2 100, 101 Total Protein 6.1 g/dL 5.8-7.8 100 Albumin 3.7 g/dL 3.5-4.8 100 Globulin 2.4 g/dL 2.0-3.5 100 A/G Ratio 1.5 Ratio 1.0-2.2 100 Total Bilirubin 0.9 mg/dL 0.3-1.2 100 Alkaline Phosphatase 79 U/L 24-140 100 Alt 21 U/L 4-45 100 Ast 21 U/L 12-40 100 Anion Gap 9 mmol/L 8-16 100 GFR Calculation > 60 mL/min 100, 102 GFR For > 60 mL/min 100, 103 CBC With Auto Diff 07/15/2008 WBC 7.3 K/ul 4.0-10.9 100 RBC 5.15 M/ul 4.70-6.10 100 Hemoglobin 14.9 GM/dl 13.5-18.0 100 Hematocrit 43.6 % 42.0-52.0 100 MCV 84.6 FL 80.0-97.0 100 MCH 28.9 pg 27.0-31.0 100 MCHC 34.1 g/dL 32.0-36.0 100 RDW 13.7 % 11.5-14.5 100 Platelet Count 206 K/ul 140-440 100 Neutrophils 53.2 % 50-70 100 Lymphocytes 33.4 % 20-44 100 Monocytes 10.0 % High 2-9 100 Eosinophil 2.9 % 0-4 100 Basophil 0.5 % 0-2 100 Absolute Neutrophils 3.9 K/ul 2.05-7.63 100 Absolute Lymphocytes 2.4 K/ul 0.8-4.8 100 Absolute Monocytes 0.7 K/ul 0.1-1.0 100 Absolute Eosinophils 0.2 K/ul 0.1-0.5 100 Absolute Basophils 0.0 K/ul 0.0-0.3 100 Hematology Comment (Comm2) N/A 100 Lipid Panel 07/15/2008 Cholesterol 178 mg/dL 50-199 100 Triglycerides 96 mg/dL 10-150 100 HDL 39 mg/dL 29-71 100, 104 Chol/HDL Ratio 4.6 Ratio 100, 105 VLDL 19 mg/dL 100 LDL (Calc) 120 mg/dL 20-129 100, 106 Laboratory test finding 07/15/2008 PSA 2.61 ng/ml 0.00-4.00 100, 107 Lipid TX Panel 01/15/2008 Ast 24 U/L 12-40 Alt 23 U/L 4-45 Cholesterol 179 mg/dL 50-199 108 Triglycerides 120 mg/dL 10-150 HDL 36 mg/dL (>40) 109 LDL (Calc) 119 mg/dL 20-129 110 Chol/HDL Ratio 5.0 Ratio 111 VLDL 24 mg/dL CMP 07/14/2007 Sodium 140 mmol/L 135-144 Potassium 4.8 mmol/L 3.6-5.2 Chloride 106 mmol/L 97-110 Carbon Dioxide 29 mmol/L 23-33 Glucose 88 mg/dL 70-105 BUN 12 mg/dL 6-22 Creatinine 0.8 mg/dL 0.5-1.3 BUN/CR 15 Ratio 12.0-20.0 Calcium 9.4 mg/dL 8.6-10.2 112 Total Protein 6.5 g/dL 5.8-7.8 Albumin 3.9 g/dL 3.5-4.8 Globulin 2.6 g/dL 2.0-3.5 A/G Ratio 1.5 Ratio 1.0-2.2 Total Bilirubin 0.7 mg/dL 0.3-1.2 Alkaline Phosphatase 76 U/L 24-140 Alt 20 U/L 4-45 Ast 23 U/L 12-40 Anion Gap 10 mmol/L 8-16 GFR Calculation > 60 mL/min 113 GFR For > 60 mL/min 114 CBC With Auto Diff 07/14/2007 WBC 7.8 [...] 0.1-0.5 Absolute Basophils 0.0 K/ul Low 0.1-0.3 Lipid Panel 07/14/2007 Cholesterol 293 mg/dL High 50-199 Triglycerides 277 mg/dL High 10-150 HDL 38 mg/dL Chol/HDL Ratio 7.7 Ratio VLDL 55 mg/dL LDL (Calc) 200 mg/dL High 20-129 Laboratory test finding 07/14/2007 PSA 2.27 ng/ml 0.00-4.00 115 Lipid TX Panel 04/04/2006 Ast 22 U/L 12-40 Alt 20 U/L 4-45 Cholesterol 184 mg/dL 50-199 Triglycerides 159 mg/dL High 10-150 HDL 40 mg/dL LDL (Calc) 112 mg/dL 20-129 Chol/HDL Ratio 4.6 Ratio VLDL 32 mg/dL Laboratory test finding 09/14/2005 PSA 1.88 ng/ml 0.00-4.00 116, 117 Lipid Panel 09/14/2005 Cholesterol 233 mg/dL High 50-199 116 Triglycerides 84 mg/dL 10-150 116 HDL 41 mg/dL 71 116 Chol/HDL Ratio 5.7 Ratio 116 VLDL 17 mg/dL 116 LDL (Calc) 175 mg/dL High 20-129 116 CMP 09/14/2005 Sodium 142 mmol/L 135-144 116 Potassium 5.1 mmol/L 3.6-5.2 116 Chloride 107 mmol/L 97-110 116 Carbon Dioxide 28 mmol/L 23-33 116 Glucose 96 mg/dL 70-105 116 BUN 14 mg/dL 6-22 116 Creatinine 0.9 mg/dL 0.5-1.3 116 BUN/CR 16 Ratio 12.0-20.0 116 Calcium 8.9 mg/dL 8.6-10.2 116 Total Protein 6.0 g/dL 5.8-7.8 116 Albumin 3.7 g/dL 3.5-4.8 116 Globulin 2.3 g/dL 2.0-3.5 116 A/G Ratio 1.6 Ratio 1.0-2.2 116 Total Bilirubin 0.9 mg/dL 0.3-1.2 116 Alkaline Phosphatase 72 U/L 24-140 116 Alt 18 U/L 4-45 116 Ast 22 U/L 12-40 116 Anion Gap 12 mmol/L 8-16 116 GFR White Male 89 116 GFR White Female 66 116 GFR Black Male 108 116 GFR Black Female 80 116 GFR Guidelines 0 116, 118 Lipid Panel 02/17/2005 Cholesterol 232 mg/dL High 50-199 119 Triglycerides 145 mg/dL 10-150 119 HDL 45 mg/dL 29-71 119 Chol/HDL Ratio 5.2 Ratio 119 VLDL 29 mg/dL 119 LDL (Calc) 158 mg/dL High 20-100 119 CMP 02/17/2005 Sodium 141 mmol/L 135-144 119 Potassium 3.8 mmol/L 3.6-5.2 119 Chloride 103 mmol/L 97-110 119 Carbon Dioxide 30 mmol/L 22-32 119 Glucose 109 mg/dL High 70-105 119 BUN 12 mg/dL 6-22 119 Creatinine 0.8 mg/dL 0.5-1.3 119 BUN/CR 15 Ratio 12.0-20.0 119 Calcium 9.2 mg/dL 8.6-10.2 119 Total Protein 6.2 g/dL 5.8-7.8 119 Albumin 3.8 g/dL 3.5-4.8 119 Globulin 2.4 g/dL 2.0-3.5 119 A/G Ratio 1.6 Ratio 1.0-2.2 119 Total Bilirubin 0.8 mg/dL 0.3-1.2 119 Ast 23 U/L 12-40 119 Alt 18 U/L 4-45 119 Alkaline Phosphatase 84 U/L 32-91 119 Anion Gap 12 mmol/L 8-16 119 Lipid TX Panel 10/19/2004 Ast 25 U/L 8-42 Alt 22 U/L 3-42 Cholesterol 139 mg/dL 50-199 Triglycerides 51 mg/dL 30-200 HDL 42 mg/dL 29-71 LDL (Calc) 87 mg/dL 20-129 Chol/HDL Ratio 3.3 Ratio VLDL 10 mg/dL Laboratory test finding 06/19/2004 PSA 1.14 ng/ml 0.00-4.00 120 CMP 06/19/2004 Sodium 140 mmol/L 135-145 Potassium [...] Updated reference range on new analyzer 2 5.7 No visible hemolysis. 3 Updated reference range on new analyzer 4 Concerning GFR Guidelines for Americans: Normal function or mild renal disease, if clinically at risk: >/=60 mL/min Moderately decreased: 30-59 Severely decreased: 15-29 Renal failure: <15 5 Concerning GFR Guidelines: Normal function or mild [...] drugs that are excreted by the kidneys. 6 Updated reference range on new analyzer 7 Per NCEP ATP III Guidelines: Results lower than 40 mg/dL are suggestive of increased risk for coronary artery disease. Results > or=to 60 mg/dL are considered a negative risk factor. 8 Per NCEP ATP III Guidelines: Normal Population <130 Patients with medical conditions: CHD/DM Optimal: <100 Borderline high: 130-159 High: 160-189 Very high: >189 9 Concerning GFR Guidelines for Americans: Normal function or mild renal disease, if clinically at risk: >/=60 mL/min Moderately decreased: 30-59 Severely decreased: 15-29 Renal failure: <15 10 Concerning GFR Guidelines: Normal function or mild [...] drugs that are excreted by the kidneys. 11 Per NCEP ATP III Guidelines: Results lower than 40 mg/dL are suggestive of increased risk for coronary artery disease. Results > or=to 60 mg/dL are considered a negative risk factor. 12 Per NCEP ATP III Guidelines: Normal Population <130 Patients with medical conditions: CHD/DM Optimal: <100 Borderline high: 130-159 High: 160-189 Very high: >189 13 Beginning 06/27/06 PSA values assayed at [facility] uses chemiluminescence methodology manufactured by [employer] for use on the DXI analyzer. Values obtained with different assay methods or kits can not be used interchangeably. Serum PSA measurement is not an absolute test for malignancy. The PSA value should be used in conjunction with information available from clinical evaluation and other diagnostic procedures. 14 Unless otherwise specified, testing performed by [facility] [address] [place] [id number] 15 Beginning 06/27/06 PSA values assayed at [facility] uses an EIA methodology manufactured by [employer] for use on the DXI analyzer. Values obtained with different assay methods or kits can not be used interchangeably. Serum PSA measurement is not an absolute test for malignancy. The PSA value should be used in conjunction with information available from clinical evaluation and other diagnostic procedures. 16 Per NCEP ATP III Guidelines: Results [...] that are excreted by the kidneys. 20 This sample is drawn by:RH 21 5.6 No visible hemolysis. Testing performed on an aliquot tube 22 Concerning GFR Guidelines for Americans: Normal function or mild renal disease, if clinically at risk: >/=60 mL/min Moderately decreased: 30-59 Severely decreased: 15-29 Renal failure: <15 23 Concerning GFR Guidelines: Normal function or mild [...] drugs that are excreted by the kidneys. 24 Beginning 06/27/06 PSA values assayed at [email or web address] uses an EIA methodology manufactured by [employer] for use on the DXI analyzer. Values obtained with different assay methods or kits can not be used interchangeably. Serum PSA measurement is not an absolute test for malignancy. The PSA value should be used in conjunction with information available from clinical evaluation and other diagnostic procedures. 25 Unless otherwise specified, testing performed by [facility] [address] [id number] 26 Unless otherwise specified, testing performed by [facility] [address] [address] 27 CYtology ffrom urine please, thanks! 28 SUGGESTED THERAPEUTIC RANGES USING INR FOR STABILIZED ANTICOAGULATED PATIENTS: STANDARD DOSE THERAPY INR 2.0-3.0 DVT, PE, PREVENT DVT OR EMBOLISM HIGH DOSE THERAPY INR 2.5-3.5 PREVENT EMBOLISM FROM MECHANICAL HEART VALVE Unless otherwise specified, testing performed by [facility] [address] [place] [address] 29 Unless otherwise specified, testing performed by [facility] [address] [place] [address] 30 Unless otherwise specified, testing performed by [facility] [address] [place] [address] 31 [facility]. [address] [place] [id number] MISCELLANEOUS CYTOLOGY REPORT Accession Number: [id number] Source of Specimen(s): A: Urine, Voided Clinical Diagnosis and History: Gross Description: Urine, Voided: 70 cc yellow fluid. Final Diagnosis: Specimen Adequacy Satisfactory Final Diagnosis NEGATIVE FOR MALIGNANCY Urothelial cells and occasional erythrocytes present. Reported: 06/24/2014 Electronically Signed Out By Kahlil Morataya MD Archivist Political History: Nicole KENT(ASCP) [facility] Unless otherwise specified, testing performed by [facility] [address] [place] [id number] 32 This sample is drawn by: 33 Concerning GFR Guidelines for Americans: Normal function or mild renal disease, if clinically at risk: >/=60 mL/min Moderately decreased: 30-59 Severely decreased: 15-29 Renal failure: <15 34 Concerning GFR Guidelines: Normal function or mild [...] drugs that are excreted by the kidneys. 35 Concerning GFR Guidelines for Americans: Normal function or mild renal disease, if clinically at risk: >/=60 mL/min Moderately decreased: 30-59 Severely decreased: 15-29 Renal failure: <15 36 Concerning GFR Guidelines: Normal function or mild [...] drugs that are excreted by the kidneys. 37 Per NCEP ATP III Guidelines: Results lower than 40 mg/dL are suggestive of increased risk for coronary artery disease. Results > or=to 60 mg/dL are considered a negative risk factor. 38 Per NCEP ATP III Guidelines: Normal Population <130 Patients with medical conditions: CHD/DM Optimal: <100 Borderline high: 130-159 High: 160-189 Very high: >189 39 9.630 Results verified by repeat analysis Beginning 06/27/06 PSA values assayed at [facility] uses an EIA methodology manufactured by [employer] for use on the DXI analyzer. Values obtained with different assay methods or kits can not be used interchangeably. Serum PSA measurement is not an absolute test for malignancy. The PSA value should be used in conjunction with information available from clinical evaluation and other diagnostic procedures. 40 Microbiology results [facility] FINAL RESULT No growth 41 This sample is drawn by:CT 42 Unless otherwise specified, [place] [address] 43 Reference range: 9 to 67 INTERPRETIVE INFORMATION: Angiotensin Converting Enzyme For related information, see [email or web address] Performed by [facility], [address] [place] [id number] [email or web address], Connor Ceballos MD, Lab. Director Unless otherwise specified, testing performed by [facility] [place] [address] 44 % FREE PSA PROBABILITY OF CANCER 0 [...] DIAGNOSIS OF CANCER. (See: JESSA 1998; 279: 4024-7126) METHOD USED TO ASSAY BOTH FREE PSA AND TOTAL PSA IS [employer] IMMUNOASSAY SYSTEM [employer] FREE PSA AND TOTAL PSA. RESULTS SHOULD NOT BE INTERPRETED ABSOLUTE EVIDENCE FOR THE PRESENCE OR ABSENCE OF MALIGNANT DISEASE. VALUES OBTAINED WITH DIFFERENT ASSAY METHODS OR KITS CANNOT BE USED INTERCHANGEABLY. Unless otherwise specified, testing performed by [facility] [place] [address] 45 Per NCEP ATP III Guidelines: Results lower than 40 mg/dL are suggestive of increased risk for coronary artery disease. Results > or=to 60 mg/dL are considered a negative risk factor. 46 Per NCEP ATP III Guidelines: Normal Population <130 Patients with medical conditions: CHD/DM Optimal: <100 Borderline high: 130-159 High: 160-189 Very high: >189 47 Concerning GFR Guidelines for Americans: Normal function or mild renal disease, if clinically at risk: >/=60 mL/min Moderately decreased: 30-59 Severely decreased: 15-29 Renal failure: <15 48 Concerning GFR Guidelines: Normal function or mild [...] drugs that are excreted by the kidneys. 49 Concerning GFR Guidelines for Americans: Normal function or mild renal disease, if clinically at risk: >/=60 mL/min Moderately decreased: 30-59 Severely decreased: 15-29 Renal failure: <15 50 Concerning GFR Guidelines: Normal function or mild [...] drugs that are excreted by the kidneys. 51 Per NCEP ATP III Guidelines: Results lower than 40 mg/dL are suggestive of increased risk for coronary artery disease. Results > or=to 60 mg/dL are considered a negative risk factor. 52 Per NCEP ATP III Guidelines: Normal Population <130 Patients with medical conditions: CHD/DM Optimal: <100 Borderline high: 130-159 High: 160-189 Very high: >189 53 Concerning GFR Guidelines for Americans: Normal function or mild renal disease, if clinically at risk: >/=60 mL/min Moderately decreased: 30-59 Severely decreased: 15-29 Renal failure: <15 54 Concerning GFR Guidelines: Normal function or mild [...] drugs that are excreted by the kidneys. 55 Per NCEP ATP III Guidelines: Results lower than 40 mg/dL are suggestive of increased risk for coronary artery disease. Results > or=to 60 mg/dL are considered a negative risk factor. 56 Per NCEP ATP III Guidelines: Optimal: <100 Near optimal: 100-129 Borderline high: 130-159 High: 160-189 Very high: >189 57 Recommended Cardiac Risk Assessment: Low < 1.0 mg/L Average 1.0 - 3.0 mg/L High > 3.0 mg/L 58 % FREE PSA PROBABILITY OF CANCER 0 [...] DIAGNOSIS OF CANCER. (See: JESSA 1998; 279: 1747-9955) METHOD USED TO ASSAY BOTH FREE PSA AND TOTAL PSA IS [employer] IMMUNOASSAY SYSTEM [employer] FREE PSA AND TOTAL PSA. RESULTS SHOULD NOT BE INTERPRETED ABSOLUTE EVIDENCE FOR THE PRESENCE OR ABSENCE OF MALIGNANT DISEASE. VALUES OBTAINED WITH DIFFERENT ASSAY METHODS OR KITS CANNOT BE USED INTERCHANGEABLY. Unless otherwise specified, testing performed by [facility] [address] [place] [id number] 59 Per NCEP ATP III Guidelines: Results lower than 40 mg/dL are suggestive of increased risk for coronary artery disease. Results > or=to 60 mg/dL are considered a negative risk factor. 60 Per NCEP ATP III Guidelines: Optimal: <100 Near optimal: 100-129 Borderline high: 130-159 High: 160-189 Very high: >189 61 Concerning GFR Guidelines for Americans: Normal function or mild renal disease, if clinically at risk: >/=60 mL/min Moderately decreased: 30-59 Severely decreased: 15-29 Renal failure: <15 62 Concerning GFR Guidelines: Normal function or mild [...] drugs that are excreted by the kidneys. 63 Concerning GFR Guidelines for Americans: Normal function or mild renal disease, if clinically at risk: >/=60 mL/min Moderately decreased: 30-59 Severely decreased: 15-29 Renal failure: <15 64 Concerning GFR Guidelines: Normal function or mild [...] drugs that are excreted by the kidneys. 65 % FREE PSA PROBABILITY OF CANCER 0 [...] DIAGNOSIS OF CANCER. (See: JESSA 1998; 279: 7669-4390) METHOD USED TO ASSAY BOTH FREE PSA AND TOTAL PSA IS [employer] ACCESS IMMUNOASSAY SYSTEM [employer] FREE PSA AND TOTAL PSA. RESULTS SHOULD NOT BE INTERPRETED ABSOLUTE EVIDENCE FOR THE PRESENCE OR ABSENCE OF MALIGNANT DISEASE. VALUES OBTAINED WITH DIFFERENT ASSAY METHODS OR KITS CANNOT BE USED INTERCHANGEABLY. Unless otherwise specified, testing performed by [facility] [address] [place] [address] 66 Per NCEP ATP III Guidelines: Results lower than 40 mg/dL are suggestive of increased risk for coronary artery disease. Results > or=to 60 mg/dL are considered a negative risk factor. 67 Per NCEP ATP III Guidelines: Optimal: <100 Near optimal: 100-129 Borderline high: 130-159 High: 160-189 Very high: >189 68 Per NCEP ATP III Guidelines: Results lower than 40 mg/dL are suggestive of increased risk for coronary artery disease. Results > or=to 60 mg/dL are considered a negative risk factor. 69 Per NCEP ATP III Guidelines: Optimal: <100 Near optimal: 100-129 Borderline high: 130-159 High: 160-189 Very high: >189 70 Concerning GFR Guidelines: Normal function or mild [...] drugs that are excreted by the kidneys. 71 Concerning GFR Guidelines for Americans: Normal function or mild renal disease, if clinically at risk: >/=60 mL/min Moderately decreased: 30-59 Severely decreased: 15-29 Renal failure: <15 72 % FREE PSA PROBABILITY OF CANCER 0 [...] DIAGNOSIS OF CANCER. (See: JESSA 1998; 279: 1231-2873) METHOD USED TO ASSAY BOTH FREE PSA AND TOTAL PSA IS [employer] ACCESS IMMUNOASSAY SYSTEM [employer] FREE PSA AND TOTAL PSA. RESULTS SHOULD NOT BE INTERPRETED ABSOLUTE EVIDENCE FOR THE PRESENCE OR ABSENCE OF MALIGNANT DISEASE. VALUES OBTAINED WITH DIFFERENT ASSAY METHODS OR KITS CANNOT BE USED INTERCHANGEABLY. Unless otherwise specified, testing performed by [facility] [address] [place] [address] 73 Per NCEP ATP III Guidelines: Results lower than 40 mg/dL are suggestive of increased risk for coronary artery disease. Results > or=to 60 mg/dL are considered a negative risk factor. 74 Per NCEP ATP III Guidelines: Optimal: <100 Near optimal: 100-129 Borderline high: 130-159 High: 160-189 Very high: >189 75 Concerning GFR Guidelines: Normal function or mild [...] drugs that are excreted by the kidneys. 76 Concerning GFR Guidelines for Americans: Normal function or mild renal disease, if clinically at risk: >/=60 mL/min Moderately decreased: 30-59 Severely decreased: 15-29 Renal failure: <15 77 Concerning GFR GUIDELINES: Normal Function or Mild [...] drugs that are excreted by the kidneys. 78 Concerning GFR GUIDELINES: Normal Function or Mild Renal Disease, if clinically at risk: >/=60mL/min Moderately decreased: 30-59 Severely decreased: 15-29 Renal Failure: <15 79 PER NCEP ATP III GUIDELINES: RESULTS LOWER THAN 40 MG/DL ARE SUGGESTIVE OF INCREASED RISK FOR CORONARY ARTERY DISEASE. RESULTS > OR=TO 60 MG/DL ARE CONSIDERED A NEGATIVE RISK FACTOR. 80 INTERPRETATION OF CHOL-HDL RATIO CHD RISK FEMALE MALE VERY HIGH >8.3 >14.3 HIGH 5.6 - 8.3 6.7 - 14.3 AVERAGE 3.7 - 5.6 4.0 - 6.7 BELOW AVERAGE 2.5 - 3.7 2.7 - 4.0 PROTECTED <2.5 <2.7 81 PER NCEP ATP III GUIDELINES: OPTIMAL: <100 NEAR OPTIMAL: 100 - 129 BORDERLINE HIGH: 130 - 159 HIGH: 160 - 189 VERY HIGH: >189 82 % FREE PSA PROBABILITY OF CANCER 0 [...] DIAGNOSIS OF CANCER. (See: JESSA 1998; 279: 6326-3985) METHOD USED TO ASSAY BOTH FREE PSA AND TOTAL PSA IS [employer] ACCESS IMMUNOASSAY SYSTEM [employer] FREE PSA AND TOTAL PSA. RESULTS SHOULD NOT BE INTERPRETED ABSOLUTE EVIDENCE FOR THE PRESENCE OR ABSENCE OF MALIGNANT DISEASE. VALUES OBTAINED WITH DIFFERENT ASSAY METHODS OR KITS CANNOT BE USED INTERCHANGEABLY. Unless otherwise specified, testing performed by [facility] [address] [place] [address] FREE PSA % GUIDELINES: %FREE PSA PROBABILITY OF CANCER 0-10% 56% 10-15% 28% 15-20% 20% 20-25% 16% GREATER THAN 25% 8% METHOD USED FOR FREE AND TOTAL PSA IS THE [employer] ACCESS IMMUNOASSAY SYSTEM [employer] FREE PSA AND TOTAL PSA. RESULT SHOULD NOT BE INTERPRETED ABSOLUTE EVIDENCE FOR THE PRESENCE OR ABSENCE OF MALIGNA NT DISEASE. VALUES OBTAINED WITH DIFFERENT ASSAY METHODS OR KITS CANNOT BE USED INTERCHANGEABLY. 83 The difference between the most recent result of 209 and the current result of 148 exceeds the absolute delta value of 50 as defined for this test. 84 PER NCEP ATP III GUIDELINES: RESULTS LOWER THAN 40 MG/DL ARE SUGGESTIVE OF INCREASED RISK FOR CORONARY ARTERY DISEASE. RESULTS > OR=TO 60 MG/DL ARE CONSIDERED A NEGATIVE RISK FACTOR. 85 PER NCEP ATP III GUIDELINES: OPTIMAL: <100 NEAR OPTIMAL: 100 - 129 BORDERLINE HIGH: 130 - 159 HIGH: 160 - 189 VERY HIGH: >189 86 INTERPRETATION OF CHOL-HDL RATIO CHD RISK FEMALE MALE VERY HIGH >8.3 >14.3 HIGH 5.6 - 8.3 6.7 - 14.3 AVERAGE 3.7 - 5.6 4.0 - 6.7 BELOW AVERAGE 2.5 - 3.7 2.7 - 4.0 PROTECTED <2.5 <2.7 87 FASTING This sample is drawn by:CT 88 The difference between the most recent result of 4.9 and the current result of 4.3 exceeds the absolute delta value of 0.5 as defined for this test. 89 The difference between the most recent result of 0.9 and the current result of 0.4 exceeds the absolute delta value of 0.3 as defined for this test. 90 Concerning GFR GUIDELINES: Normal Function or Mild [...] drugs that are excreted by the kidneys. 91 Concerning GFR GUIDELINES: Normal Function or Mild Renal Disease, if clinically at risk: >/=60mL/min Moderately decreased: 30-59 Severely decreased: 15-29 Renal Failure: <15 92 PER NCEP ATP III GUIDELINES: RESULTS LOWER THAN 40 MG/DL ARE SUGGESTIVE OF INCREASED RISK FOR CORONARY ARTERY DISEASE. RESULTS > OR=TO 60 MG/DL ARE CONSIDERED A NEGATIVE RISK FACTOR. 93 INTERPRETATION OF CHOL-HDL RATIO CHD RISK FEMALE MALE VERY HIGH >8.3 >14.3 HIGH 5.6 - 8.3 6.7 - 14.3 AVERAGE 3.7 - 5.6 4.0 - 6.7 BELOW AVERAGE 2.5 - 3.7 2.7 - 4.0 PROTECTED <2.5 <2.7 94 PER NCEP ATP III GUIDELINES: OPTIMAL: <100 NEAR OPTIMAL: 100 - 129 BORDERLINE HIGH: 130 - 159 HIGH: 160 - 189 VERY HIGH: >189 95 BEGINNING 06/27/06, PSA VALUES ASSAYED AT [facility] [facility] [employer] USES AN EIA METHODOLOGY MANUFACTURED BY [employer] FOR USE ON THE DXI ANALYZER. VALUES OBTAINED WITH DIFFERENT ASSAY METHODS OR KITS CAN NOT BE USED INTERCHANGEABLY. SERUM PSA MEASUREMENT IS NOT AN ABSOLUTE TEST FOR MALIGNANCY, THE PSA VALUE SHOULD BE USED IN CONJUNCTION WITH INFORMATION AVAILABLE FROM CLINICAL EVALUATION AND OTHER DIAGNOSTIC PROCEDURES. 96 FASTING This sample is drawn by:NB. 97 PER NCEP ATP III GUIDELINES: RESULTS LOWER THAN 40 MG/DL ARE SUGGESTIVE OF INCREASED RISK FOR CORONARY ARTERY DISEASE. RESULTS > OR=TO 60 MG/DL ARE CONSIDERED A NEGATIVE RISK FACTOR. 98 PER NCEP ATP III GUIDELINES: OPTIMAL: <100 NEAR OPTIMAL: 100 - 129 BORDERLINE HIGH: 130 - 159 HIGH: 160 - 189 VERY HIGH: >189 99 INTERPRETATION OF CHOL-HDL RATIO CHD RISK FEMALE MALE VERY HIGH >8.3 >14.3 HIGH 5.6 - 8.3 6.7 - 14.3 AVERAGE 3.7 - 5.6 4.0 - 6.7 BELOW AVERAGE 2.5 - 3.7 2.7 - 4.0 PROTECTED <2.5 <2.7 100 FASTING This sample is drawn by: DB 101 The difference between the most recent result of 9.4 and the current result of 8.8 exceeds the absolute delta value of 0.3 as defined for this test. 102 Concerning GFR GUIDELINES: Normal Function or Mild [...] drugs that are excreted by the kidneys. 103 Concerning GFR GUIDELINES: Normal Function or Mild Renal Disease, if clinically at risk: >/=60mL/min Moderately decreased: 30-59 Severely decreased: 15-29 Renal Failure: <15 104 PER NCEP ATP III GUIDELINES: RESULTS LOWER THAN 40 MG/DL ARE SUGGESTIVE OF INCREASED RISK FOR CORONARY ARTERY DISEASE. RESULTS > OR=TO 60 MG/DL ARE CONSIDERED A NEGATIVE RISK FACTOR. 105 INTERPRETATION OF CHOL-HDL RATIO CHD RISK FEMALE MALE VERY HIGH >8.3 >14.3 HIGH 5.6 - 8.3 6.7 - 14.3 AVERAGE 3.7 - 5.6 4.0 - 6.7 BELOW AVERAGE 2.5 - 3.7 2.7 - 4.0 PROTECTED <2.5 <2.7 106 PER NCEP ATP III GUIDELINES: OPTIMAL: <100 NEAR OPTIMAL: 100 - 129 BORDERLINE HIGH: 130 - 159 HIGH: 160 - 189 VERY HIGH: >189 107 BEGINNING 06/27/06, PSA VALUES ASSAYED AT [employer] [facility] [employer] USES AN EIA METHODOLOGY MANUFACTURED BY [employer] FOR USE ON THE DXI ANALYZER. VALUES OBTAINED WITH DIFFERENT ASSAY METHODS OR KITS CAN NOT BE USED INTERCHANGEABLY. SERUM PSA MEASUREMENT IS NOT AN ABSOLUTE TEST FOR MALIGNANCY, THE PSA VALUE SHOULD BE USED IN CONJUNCTION WITH INFORMATION AVAILABLE FROM CLINICAL EVALUATION AND OTHER DIAGNOSTIC PROCEDURES. 108 The difference between the most recent result of 293 and the current result of 179 exceeds the absolute delta value of 50 as defined for this test. 109 PER NCEP ATP III GUIDELINES: RESULTS LOWER THAN 40 MG/DL ARE SUGGESTIVE OF INCREASED RISK FOR CORONARY ARTERY DISEASE. RESULTS > OR=TO 60 MG/DL ARE CONSIDERED A NEGATIVE RISK FACTOR. 110 PER NCEP ATP III GUIDELINES: OPTIMAL <100 NEAR OPTIMAL 100 - 129 BORDERLINE HIGH 130 - 159 HIGH 160 - 189 VERY HIGH >189 111 INTERPRETATION OF CHOL-HDL RATIO CHD RISK FEMALE MALE VERY HIGH >8.3 >14.3 HIGH 5.6 - 8.3 6.7 - 14.3 AVERAGE 3.7 - 5.6 4.0 - 6.7 BELOW AVERAGE 2.5 - 3.7 2.7 - 4.0 PROTECTED <2.5 <2.7 112 The difference between the most recent result of 8.9 and the current result of 9.4 exceeds the absolute delta value of 0.3 as defined for this test. 113 Concerning GFR GUIDELINES: Normal Function or Mild [...] drugs that are excreted by the kidneys. 114 Concerning GFR GUIDELINES: Normal Function or Mild Renal Disease, if clinically at risk: >/=60mL/min Moderately decreased: 30-59 Severely decreased: 15-29 Renal Failure: <15 115 BEGINNING 06/27/06, PSA VALUES ASSAYED AT [employer] [facility] [employer] USES AN EIA METHODOLOGY MANUFACTURED BY [employer] FOR USE ON THE DXI ANALYZER. VALUES OBTAINED WITH DIFFERENT ASSAY METHODS OR KITS CAN NOT BE USED INTERCHANGEABLY. SERUM PSA MEASUREMENT IS NOT AN ABSOLUTE TEST FOR MALIGNANCY, THE PSA VALUE SHOULD BE USED IN CONJUNCTION WITH INFORMATION AVAILABLE FROM CLINICAL EVALUATION AND OTHER DIAGNOSTIC PROCEDURES. 116 FASTING 117 PSA VALUES ASSAYED AT [employer] USES AN EIA METHODOLOGY MANUFACTURED BY [employer] FOR USE ON THE NEXIA ANALYZER. VALUES OBTAINED WITH DIFFERENT ASSAY METHODS OR KITS CAN NOT BE USED INT ERCHANGEABLY. SERUM PSA MEASUREMENT IS NOT AN ABSOLUTE TEST FOR MALIGNANCY, THE PSA VALUE SHOULD BE USED IN CONJUNCTION WITH INFORMATION AVAILABLE FROM CLINICAL EVALUATION AND OTHER DIAGNOSTIC PROCEDURES. 118 Normal Function or Mild Renal Disease, if [...] drugs that are excreted by the kidneys. 119 MELQUIADES 7:00PM NEGIN 120 PSA VALUES ASSAYED [place] [facility] [place] [employer] [employer] USES AN EIA METHODOLOGY MANUFACTURED BY [employer] FOR USE ON THE NEXIA ANALYZER. VALUES OBTAINED WITH DIFFERENT ASSAY METHODS OR KITS CAN NOT BE USED INT ERCHANGEABLY. SERUM PSA MEASUREMENT IS NOT AN ABSOLUTE TEST FOR MALIGNANCY, THE PSA VALUE SHOULD BE USED IN CONJUNCTION WITH INFORMATION AVAILABLE FROM CLINICAL EVALUATION AND OTHER DIAGNOSTIC PROCEDURES. Procedures Date CPT Code Description Status 11/15/2017 27494 Inject/Drain Joint/Bursa Intermediate Completed 06/27/2017 67158 Electrocardiogram Complete Completed 12/20/2016 03859 Electrocardiogram Complete Completed 06/20/2014 07028 Electrocardiogram Complete Completed 05/09/2013 71703 Electrocardiogram Complete Completed 09/18/2012 65990 Electrocardiogram Complete Completed 07/19/2011 16833 Electrocardiogram Complete Completed 07/14/2009 65835 Electrocardiogram Complete Completed 02/17/2005 67439 Electrocardiogram Interpretation & Report Only Completed 02/17/2005 17505 Electrocardiogram Tracing Completed 03/07/2000 49316 Electrocardiogram Complete Completed Encounters Type Date Location Provider CPT E/M Dx Office Visit 08/29/2017 8:00a [place] [address] I25.10 I48.0 I50.20 I10 E78.2 C61 C64.9 C83.00 Z68.28 Office Visit 09/28/2016 10:40[place] [address] J15.9 Office Visit 09/20/2016 11:20[place] [address] J01.00 J02.9 Office Visit 08/12/2016 8:00[place] [address] I10 E78.00 I25.10 C61 Z63.79 Office Visit 04/08/2016 9:20a Viv Nguyen PA G0439 Z00.00 I10 E78.00 C61 Office Visit 01/07/2016 8:20[place] [address] I10 E78.0 Office Visit 06/17/2015 9:20[place] [address] I50.20 I10 E78.0 Office Visit 02/28/2015 11:40a Kay Escobar, RN [place] [employer] 85992 J10.2 Office Visit 01/14/2015 8:20a Heydi Shukla MD G0439 428.0 272.0 V70.0 I10 I25.10 N40.1 C61 R73.01 C64.9 R79.9 Office Visit 06/20/2014 11:00[place] [address] V72.84 272.0 595.0 Office Visit 02/18/2014 9:40[place] [address] 595.0 135 272.0 790.93 401.1 185 414.00 Office Visit 11/19/2013 8:20[place] [address] 790.93 401.1 414.01 272.2 600.01 Office Visit 10/29/2013 2:15p [place] [address] 379.90 Office Visit 08/09/2013 8:20a Heydi Shukla MD G0439 790.93 401.1 272.0 414.01 V70.0 411.81 Office Visit 06/21/2013 11:20[place] [address] 414.01 786.09 401.1 272.0 Office Visit 05/09/2013 10:00[place] [address] 413.9 401.1 272.2 424.1 Office Visit 03/19/2013 8:00a [place]és[place] [address] 414.01 401.1 272.2 790.93 Office Visit 09/18/2012 8:00a [place]és[place] [address] 414.01 V70.0 401.1 414.01 272.2 401.1 424.1 272.2 424.1 790.93 724.2 794.31 Office Visit 07/12/2012 2:45p [place]és[place] [address] 790.93 Office Visit 06/07/2012 5:45p [place]és[place] [address] 724.2 790.93 Office Visit 03/06/2012 8:30a [place]és[place] [address] 414.01 401.1 272.2 424.1 790.93 599.72 Office Visit 10/18/2011 8:30a [place]és[place] [address] 414.01 401.1 272.2 424.1 600.01 Office Visit 07/19/2011 8:15a [place]és[place] [address] V70.0 414.01 401.1 272.2 424.1 600.01 302.72 550.92 790.93 794.31 Office Visit 04/01/2011 12:00p Kay Escobar RN MS MECH[employer]ICAL ADJUSTER 99901 524.60 401.1 272.2 Office Visit 01/18/2011 8:30a [place]és[place] [address] 401.1 272.2 414.01 600.01 Office Visit 07/13/2010 8:15a [place]és[place] [address] 414.01 272.2 401.1 600.01 Office Visit 01/12/2010 8:45a [place]és[place] [address] 414.01 401.1 272.2 601.0 302.72 424.1 600.01 Office Visit 12/22/2009 12:45p [place]és[place] [address] 788.41 601.0 Office Visit 10/17/2009 8:10a [place]és[place] [address] 414.01 401.1 272.2 790.93 302.72 424.1 Office Visit 07/14/2009 8:10a [place]és[place] [address] 414.01 401.1 272.2 600.01 794.31 Office Visit 01/13/2009 8:10a [place]és[place] [address] 724.2 414.01 272.2 401.1 Office Visit 07/15/2008 8:10a [place]és[place] [address] 401.1 272.2 414.01 788.43 Office Visit 01/15/2008 8:10a [place]és[place] [address] 272.2 401.1 414.01 Office Visit 11/20/2007 2:20p [place]és[place] [address] 569.42 Office Visit 08/04/2007 8:50a [place]és[place] [address] 414.01 401.1 272.2 780.4 Office Visit 07/14/2007 9:20a [place]és[place] [address] 414.01 401.1 272.2 788.43 302.72 389.9 Office Visit 05/11/2006 2:40p [place]és[place] [address] 461.0 465.8 272.2 Office Visit 04/04/2006 9:00a [place]és[place] [address] 401.1 272.2 Office Visit 12/10/2005 8:50a [place]és[place] [address] 272.2 401.1 414.01 Office Visit 09/10/2005 1:00p [place]és[place] [address] 401.1 272.2 414.01 423.9 Office Visit 02/17/2005 2:00p [place]és[place] [address] 401.1 272.2 414.01 Office Visit 12/18/2004 2:50p [place]és[place] [address] 682.7 Office Visit 10/19/2004 9:20a [place]és[place] [address] 272.2 401.1 414.01 787.2 272.0 Office Visit 06/19/2004 9:40a [place]és[place] [address] V76.44 272.2 414.01 607.2 Office Visit 04/10/2004 1:30p [place]és[place] [address] 272.2 401.1 414.01 786.51 Office Visit 01/01/2004 4:40p [place]és[place] [address] 272.2 401.1 423.9 Office Visit 05/11/2000 4:10p [place]és[place] [address] Office Visit 04/11/2000 9:10a [place]és[place] [address] 414.00 Office Visit 03/07/2000 11:20a [place]és[place] [address] 724.3 Plan of Care Future Appointment(s):01/10/2018 8:20 am - Silvio Laurent PA at [id number] - Silvio Laurent, PAZ00.01 Encounter for general adult medical exam w abnormal findingsNew Labs:Fit (Fecal Occult Blood)-FCMGComments:EKG -- done with cardioPSA -- done with urologyDRE -- defer with urologyColonoscopy -- seeing Onc --will do FIT and ?CologardMammo -- n/aPap -- n/aDEXA -- n/aFlu Vax - - refusePneumovax -- refusePrevnar -- refuseZostavax -- refuseTdap -- refusesHep C -- n/aAAA screen -- nonsmokerLung CA -- nonsmokerOphtho -- ~ 2yrsDentist -- q 6monthsHearing -- has aidesADL's -- independentIADL's -- independentSafety at home -- no concernsEnd of Life -- DNR completedFollow up :f/u 2 weeks. Needs FIT card.I25.10 Athscl heart disease of [place] coronary artery w/o ang pctrsComments:stable. seeing kamjjeE40.0 Paroxysmal atrial fibrillationComments:bout of a fib. treated in [facility] [place]. EKG in sinus today but still with dizziness. Saw cardio and in Afib on rate control and XoicnrdZ50 Essential (primary) hypertensionComments:stable on meds. f/u with Dr Collado. need to keep metoprolol. No CCB with optic nerve "crowding."E78.2 Mixed hyperlipidemiaComments:stable with recheck 11/2016 . will get aqsskV07.1 Benign prostatic hyperplasia with lower urinary tract sympComments:stable w/o s/ s.C61 Malignant neoplasm of prostateComments:h/o Lupron 03/05 until 2014. No Lupron for 1.5yrs. Radiation treatment 2014. PSA has been stable. Sees urology and Oncology.C64.1 Malignant neoplasm of RIGHT kidney, except renal pelvisComments:s/p SstgxcnasiwB61.093 Oth disorders of optic nerve, NEC, bilateralComments:sees ophtho -- no CCB'sC83.00 Small cell B-cell lymphoma, unspecified siteComments:followed by Onc.Z68.28 Body mass index (BMI) 28.0-28.9 , adultComments:fkssjuQ67.0 Disorientation, unspecifiedNew Medication: Sulfamethoxazole/Trimethoprim DS 800-160 mgComments:??UTI. ??concerning. d/w and she said that she has not noticed anything different. has been not working with the back pain. she states that she will keep an eye on him and call if concerned. will treat for ?UTI/Prostatitis. Afib but anticoagulated. unlikely CVA unless a bleed but no trauma. last Carotid Doppler 01/2016 with ~40 % umhjspebsR73.89 Encounter for screening for other disorder
[2018-01-16 08:46] VITALS: BP 96/64
[2018-01-16] MEDS ORDERED: NS 0.9% 1000 ML* 1,000 ML IV ONE (08:53)
--- NOTE | 2018-01-16 14:09 | UC ---
Dizzy HPI HPI Summary: 77 yo male presents with dizziness and weakness over the last 2 days. He tells me that over the last 2 months he has been having trouble with diarrhea and loose stools. He states that he did a urine sample and stool sample at [facility] in [place]" and never heard about his results. Over the last two days he notes that he has become increasingly fatigued, weak, and dizzy. He has an extensive cardiac hx with multiple stents and hx of afib that failed cardioversion earlier this year. 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 He has also had prostate and kidney cancer with radiation treatments. Denies fever, chills, SOB, chest pain, dysuria. - History Of Current Complaint Chief Complaint: UCDizziness Stated Complaint: DIZZINESS, AND LIGHT HEADED Time Seen by Provider: 01/16/18 08:53 Hx Obtained From: Patient Timing: Constant Severity Initially: Mild Severity Currently: Mild Pain Intensity: 2 Pain Scale Used: 0-10 Numeric - Allergies/Home Medications Allergies/Adverse Reactions: Allergies Allergy/AdvReac Type Severity Reaction Status Date / Time No Known Allergies Allergy Verified 01/16/18 09:53 Home Medications: Home Medications Lisinopril 10 mg PO BEDTIME 01/16/18 [History Confirmed 01/16/18] PMH/Surg Hx/FS Hx/Imm Hx Cardiovascular History: Cardiac Disease, Hypertension, Atrial Fibrillation Cancer History: Prostate Cancer - Surgical History Surgical History: Yes Surgery Procedure, Year, and Place: 9 Correction of blocked ureter at 17yrs old. 1963 TONSILLECTOMY. FALL 2013 x 3 Prostate biopsy [facility] [place]. 2011 LEFT ING.hernia repair [facility]. 05/2013 CARDIAC STENTSx2 [facility]. Right nephrectomy - Family History Known Family History: Positive: Hypertension - Social History Occupation: Retired Lives: With Family Alcohol Use: None Substance Use Type: None Smoking Status (MU): Never Smoked Tobacco Have You Smoked in the Last Year: No - Immunization History Most Recent Influenza Vaccination: never Most Recent Tetanus Shot: > 10 years ago Most Recent Pneumonia Vaccination: never Review of Systems Constitutional: Fatigue, Other - Weakness Skin: Negative Respiratory: Negative Cardiovascular: Negative Gastrointestinal: Diarrhea Neurovascular: Negative Musculoskeletal: Negative Neurological: Numbness - Dizziness Psychological: Negative All Other Systems Reviewed And Are Negative: Yes Physical Exam - Summary Physical Exam Summary: GENERAL: NAD. WDWN. No pain distress. SKIN: No rashes, sores, lesions, or open wounds. NECK: Supple. Nontender. No lymphadenopathy. CHEST: CTAB. No r/r/w. No accessory muscle use. Breathing comfortably and in no distress. CV: RRR. Without m/r/g. Pulses intact. Cap refill <2seconds ABDOMEN: Soft. NTTP. No distention or guarding. No CVA tenderness. Bowel sounds present NEURO: Alert. PSYCH: Age appropriate behavior. Triage Information Reviewed: Yes Vital Signs: Initial Vital Signs Temp 97.2 F 01/16/18 08:39 Pulse 85 01/16/18 08:39 Resp 22 01/16/18 08:39 BP 96/64 01/16/18 08:39 Pulse Ox 98 01/16/18 08:39 Vital Signs Reviewed: Yes Dizzy Course/Dx - Course Course Of Treatment: EKG 63bpm afib, LVH, flipped T inferior/lateral leads as read by Dr. Buchanan. His symptoms could be related to dehydration, but given his extensive medical history, diarrhea, and hypotension today - I have advised pt to be transferred by ambulance to the hospital for further evaluation and a higher level of care. Pt and agreed to go to the ER, but refused ambulance transfer - therefore I discussed with them potential risks of refusing an ambulance and pt signed out AMA. His will drive him to the ER. - Differential Dx/Diagnosis Provider Diagnoses: Dizziness. Weakness. Fatigue. Diarrhea Discharge - Sign-Out/Discharge Documenting (check all that apply): Patient Departure All imaging exams completed and their final reports reviewed: No Studies - Discharge Plan Condition: Fair Disposition: AGAINST MEDICAL ADVICE Referrals: Silvio Laurent [Primary Care Provider] - - Billing Disposition and Condition Condition: FAIR Disposition: Against Medical Advice - Attestation Statements Provider Attestation: Per institutional requirements, I have reviewed the chart,. I did not personally evaluate or interact with this patient.. I did review his EKG and suggest transfer to ER.
== END 2018-01-16 09:23 | disposition left against medical advice (07) ==
LOC: UCEAST 08:33
CPT/HCPCS: 93005; 99212; G0463

== ENCOUNTER 2018-01-16 09:38 | Inpatient (IN) | payer MEDICARE ==
[2018-01-16] MEDS ORDERED: NS 0.9% 1000 ML* 1,000 ML IV ONE (10:09)
[2018-01-16 10:40] LABS: ABS Basophils 0.1 10^3/ul (0-0.2); ABS Eosinophils 0.3 10^3/ul (0-0.6); ABS Lymphocytes 1.2 10^3/ul (1.0-4.8); ABS Monocytes 0.7 10^3/ul (0-0.8); ABS Neutrophils 4.5 10^3/ul (1.5-7.7); ABS Nucleated RBC 0 10^3/ul; Eosinophil % 5.1 % (0-6); Hematocrit 45 % (42-52); Lymphocyte % 18.1 % (25-47); Mean Corpuscular HGB Conc 34 g/dl (31-36); Mean Corpuscular Hemoglobin 29 pg (27-31); Mean Corpuscular Volume 86 fL (80-94); Mean Platelet Volume 8.3 um3 (7.4-10.4); Nucleated Red Blood Cells % 0.1; Platelet Count 170 10^3/ul (150-450); Red Blood Count 5.24 10^6/ul (4.00-5.40); Red Cell Distribution Width 15 % (10.5-15); White Blood Count 6.9 10^3/ul (3.5-10.8)
--- NOTE | 2018-01-16 10:43 | RAD ---
HISTORY: Dizziness COMPARISONS: June 22, 2017 VIEWS: 1: frontal portable view of the chest at 10:28 AM FINDINGS: LINES AND TUBES: None. CARDIOMEDIASTINAL SILHOUETTE: The cardiomediastinal silhouette is normal for portable technique. PLEURA: The costophrenic angles are sharp. No pleural abnormalities are noted. LUNG PARENCHYMA: The lungs are clear. ABDOMEN: The upper abdomen is clear. There is no subphrenic gas. BONES AND SOFT TISSUES: No bone or soft tissue abnormalities are noted. IMPRESSION: NO ACTIVE CARDIOPULMONARY DISEASE.
--- NOTE | 2018-01-16 10:52 | ED ---
Dizziness - HPI Summary HPI Summary: Patient is a 77 y/o M w/ c/o dizziness/light-headedness and diarrhea for the past two months. He reports [facility] [place], gave a stool sample, but nothing was found. He reports he went back to give a larger stool sample 1.5 weeks ago, but has not heard anything back from [facility]. He was seen again this [facility] at [facility] and was noted to be hypotensive. Diarrhea is described as watery with no blood. He denies abdominal pain but notes nausea. He denies SOB, chest pain and fevers. Patient has not travelled recently or had any sick contacts. 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 Patient reports that he was taking antibiotics for some urinary tract infection (does not recall name). He took this antibiotic for a couple of weeks, decided to stop , but took it yesterday morning. On triage, pain is denied, nothing is noted to aggravate/alleviate Sx. Home medications and allergies are renewed. - History Of Current Complaint Chief Complaint: EDDizziness Stated Complaint: DIZZINESS/UPSET STOMACH Time Seen by Provider: 01/16/18 10:07 Hx Obtained From: Patient Onset/Duration: Still Present Timing: Weeks - two months Severity Currently: None Character: Dizzy Aggravating Factor(s): Nothing Alleviating Factor(s): Nothing Associated Signs And Symptoms: Positive: Nausea, Diarrhea, Other: - NEGATIVE: abdominal pain POSITIVE: recent weight loss. Negative: Chest Pain, SOB, Fever, Blood In Stool - Allergies/Home Medications Allergies/Adverse Reactions: Allergies Allergy/AdvReac Type Severity Reaction Status Date / Time No Known Allergies Allergy Verified 01/16/18 09:53 PMH/Surg Hx/FS Hx/Imm Hx Endocrine/Hematology History: Denies: Hx Diabetes, Hx Thyroid Disease Cardiovascular History: Reports: Hx Angina, Hx Congestive Heart Failure - pt states, Hx Coronary Artery Disease - 2 STENTS, 05/2013, Hx Hypertension - TREATED , Other Cardiovascular Problems/Disorders - SARCOID Denies: Hx Pacemaker/ICD Respiratory History: Reports: Other Respiratory Problems/Disorders - Hx OF Sarcoidosis Denies: Hx Asthma, Hx Chronic Obstructive Pulmonary Disease (COPD) GI History: Reports: Other GI Disorders - hernia, left side Denies: Hx Ulcer History: Reports: Hx Benign Prostatic Hyperplasia, Hx Kidney Stones, Hx Renal Disease - carcinoma, Other Problems/Disorders - 1958SURGERY, BLOCKED URETER, prostate cancer Denies: Hx Dialysis Musculoskeletal History: Denies: Hx Arthritis, Hx Osteoporosis Sensory History: Reports: Hx Contacts or Glasses - not with patient, Hx Hearing Aid - DOES NOT WEAR OFTEN Opthamlomology History: Reports: Hx Contacts or Glasses - not with patient Psychiatric History: Denies: Hx Panic Disorder - Cancer History Cancer Type, Location and Year: Kidney CA. prostate CA. lymphoma Hx Chemotherapy: No Hx Radiation Therapy: Yes - 40 TREATMENTS TO PROSTATE Hx Palliative Cancer Treatment: No - Surgical History Surgery Procedure, Year, and Place: 1958 Correction of blocked ureter at 17yrs old. 1963 TONSILLECTOMY. FALL 2013 x 3 Prostate biopsy [facility]. 2011 LEFT ING.hernia repair [facility] [place]. 05/2013 CARDIAC STENTSx2 [facility] [place]. Right nephrectomy Hx Anesthesia Reactions: No Infectious Disease History: No Infectious Disease History: Denies: Hx Clostridium Difficile, Hx Hepatitis, Hx Human Immunodeficiency Virus (HIV), Hx of Known/Suspected MRSA, Hx Shingles, Hx Tuberculosis, Hx Known/ Suspected VRE, Hx Known/Suspected VRSA, History Other Infectious Disease, Traveled Outside the [place] in Last 30 Days - Family History Known Family History: Positive: Hypertension - Social History Alcohol Use: Rare Hx Substance Use: No Substance Use Type: Reports: None Hx Tobacco Use: No Smoking Status (MU): Never Smoked Tobacco Have You Smoked in the Last Year: No Review of Systems Positive: Other - recent weight loss . Negative: Fever Positive: Other - hypotensive . Negative: Chest Pain Negative: Shortness Of Breath Positive: Vomiting, Diarrhea, Nausea. Negative: Abdominal Pain All Other Systems Reviewed And Are Negative: Yes Physical Exam - Summary Physical Exam Summary: VITAL SIGNS: Reviewed. GENERAL: Patient is a well-developed and nourished male who is lying comfortable in the stretcher. Patient is not in any acute respiratory distress. HEAD AND FACE: No signs of trauma. No ecchymosis, hematomas or skull depressions. No sinus tenderness. EYES: PERRLA, EOMI x 2, No injected conjunctiva, no nystagmus. EARS: Hearing grossly intact. Ear canals and tympanic membranes are within normal limits. MOUTH: Oropharynx within normal limits. NECK: Supple, trachea is midline, no adenopathy, no JVD, no carotid bruit, no c- spine tenderness, neck with full ROM. CHEST: Symmetric, no tenderness at palpation LUNGS: Clear to auscultation bilaterally. No wheezing or crackles. CVS: Regular rate and rhythm, S1 and S2 present, no murmurs or gallops appreciated. ABDOMEN: Soft, non-tender. No signs of distention. No rebound no guarding, and no masses palpated. Bowel sounds are normal. EXTREMITIES: FROM in all major joints, no edema, no cyanosis or clubbing. NEURO: Alert and oriented x 3. No acute neurological deficits. Speech is normal and follows commands. SKIN: Dry and warm Triage Information Reviewed: Yes Vital Signs On Initial Exam: Initial Vitals Temp Pulse Resp BP Pulse Ox 98.6 F 79 16 95/64 96 01/16/18 09:50 01/16/18 09:50 01/16/18 09:50 01/16/18 09:50 01/16/18 09:50 Vital Signs Reviewed: Yes Diagnostics - Vital Signs Vital Signs Temp Pulse Resp BP Pulse Ox 01/16/18 10:13 65 29 122/70 98 01/16/18 10:07 63 20 94 01/16/18 09:50 98.6 F 79 16 95/64 96 - Laboratory Result Diagrams: 01/17/18 06:16 01/17/18 06:16 Lab Statement: Any lab studies that have been ordered have been reviewed, and results considered in the medical decision making process. - Radiology CXR Xray Interpretation: No Acute Changes Radiology Interpretation Completed By: Radiologist - no active cardiopulmonary disease; this report was reviewed by ed physician - EKG 1033 Cardiac Rate: Other Rate - rate of 62 BPM EKG Rhythm: Atrial Fibrillation EKG Interpretation: diffuse t wave inversions EKG Comparison: No Significant Change - similar to ekg taken on 06/22/17 Re-Evaluation - Re-Evaluation First Eval Re-Evaluation Time: 13:25 Comment: The heart rate went into the low 30s for a couple seconds. At this time the patient is a no sinus rhythm at 60 bpm with no further complaints. Second Eval Re-Evaluation Time: 13:40 Comment: Discussed results of labs and tests with patient as well as decision to admit patient for further workup. Patient understands and is agreeable with this plan. Dizzy Course/Dx - Course Assessment/Plan: This patient is a 77-year-old male who presents to the emergency room with a chief complaint of having dizziness and diarrhea for the last 2 months. Patient reports that he was taking antibiotics for some urinary tract infection. Patient denies any recent traveling or sick contacts. In the ED course the patient started with IV fluids since the patient seemed to be dehydrated. Blood work without any significant abnormality except for creatinine 1.4, CRP of 21 BNP of 372. Chest x-ray shows no acute cardiopulmonary disease. EKG shows atrial fibrillation at 62 bpm. The patient has diffuse T-wave inversions. The EKG is similar to previous EKG done on . The stool culture is still pending. C. difficile is negative. While the patient was observed in the ER the patient develops an episode of symptomatic bradycardia. The heart rate went into the low 30s for a couple seconds. At this time the patient is normal sinus rhythm at 60 bpm with no further complaints. However, I believe that the patient is becoming dizzy probably secondary to the symptomatic bradycardia. The orthostatics were also positive therefore this time I discussed my findings and test results with Dr. Pelaez from the hospital services was accepted the patient for admission. The patient also accepted the plan for admission. - Diagnoses Differential Diagnosis/HQI/PQRI: Anxiety, Dysrhythmia, Vasovagal Reaction Provider Diagnoses: Symptomatic bradycardia - Provider Notifications Discussed Care Of Patient With: Jailyn Pelaez Time Discussed With Above Provider: 13:35 Instructed by Provider To: Other - Patient's case was discussed with Dr. Pelaez at 1335. Dr. Pelaez accepts patient for admission to [facility] [place] for further workup. 1423 -- Dr. Collado was consulted on patient's condition. He recommends starting beta blockers and observing patient Discharge - Sign-Out/Discharge Documenting (check all that apply): Patient Departure - admit - Discharge Plan Condition: Good Disposition: ADMITTED TO [facility] - Billing Disposition and Condition Condition: GOOD Disposition: Admitted to [facility] - Attestation Statements Document Initiated by Scribe: Yes Documenting Scribe: Satnam Nelson Provider For Whom Scribe is Documenting (Include Credential): Junior Amado MD Scribe Attestation: ISatnam, scribed for Junior Amado MD on 01/17/18 at 0814. Scribe Documentation Reviewed: Yes Provider Attestation: The documentation as recorded by the scribe, Satnam Nelson accurately reflects the service I personally performed and the decisions made by me, Junior Amado MD
[2018-01-16 10:59] LABS: EGFR Non-African American 48.5 (>60)
[2018-01-16 12:24] LABS: Urine Appearance Clear; Urine Blood Negative (Negative); Urine Color Yellow; Urine Ketones Negative (Negative); Urine Protein Negative (Negative); Urine Red Blood Cell 1+(3-5/hpf) (Absent); Urine Specific Gravity 1.012 (1.010-1.030); Urine Urobilinogen Negative (Negative); Urine White Blood Cell 1+(6-10/hpf) (Absent)
[2018-01-16] MEDS ORDERED: Morphine INJ* 2 MG/ML 1 ML SYRINGE (TWO MG - NEW SYRINGE VERSION) IV PRN (14:49)
[2018-01-16] MEDS ORDERED: Acetaminophen TAB* 325 MG PO PRN (14:49)
[2018-01-16] MEDS: NS 0.9% 1000 ML* 1,000 ML IV SCH (16:52)
--- NOTE | 2018-01-16 21:19 | HP ---
CC: Dr. Collado; DIANE Wren * HISTORY AND PHYSICAL: DATE OF ADMISSION: 01/16/18 PRIMARY CARE PROVIDER: DIANE Wren from [facility]– [place] in [place], [place]. CHIEF COMPLAINT: Dizzy when standing up, diarrhea for 2 months. HISTORY OF PRESENT ILLNESS: Emil aPstor is a 77-year-old male with a history of rate controlled atrial fibrillation as well as recurrent episodes of syncope. The patient had a syncopal episode in June 2017 during which he was diagnosed with atrial fibrillation. He was cardioverted to sinus rhythm, but later on when he was seen by Dr. Collado in the office, he was noted to be in rate controlled atrial fibrillation and at that point he was asymptomatic. At that point, a decision was made for the patient to continue to be in rate controlled atrial fibrillation. At that point, due to his history of recurrent episodes of syncope and dizziness, implantable lunchroom monitor was recommended and the patient refused. The patient stated that ever since then, he had been having recurrent episodes of syncope. The most recent one was approximately a month ago. During those episodes, the patient states that he feels tightness in his throat and then he passes out. He also states that usually it happens after he drinks a carbonated beverage. It usually happens after he drinks a Coca-Cola and he feels a lot of pressure in his esophagus. Today, he came into the hospital for evaluation of his diarrhea. What he calls diarrhea is 3 to 4 liquid bowel movements a day. It has been ongoing for the past 2 months. He denies any abdominal pain. He stated that he lost 20 pounds of weight in the past 2 months. The patient noted that he was evaluated by his primary care provider in [place] and stool studies were obtained, but he did not get the results yet. When he was evaluated in the emergency department, he was noted to have elevation of creatinine to 1.4, positive orthostatic hypotension. He also had an episode of 3.5-second sinus pause. He is going to be placed on overnight observation for the sinus pause as well as orthostatic hypotension. PAST MEDICAL HISTORY: 1. History of atrial fibrillation, currently chronic and rate controlled. 2. History of recurrent episodes of syncope. 3. History of esophageal stricture diagnosed in June 2017. The patient was to follow up with a marble cutter, which he has not done yet. 4. History of coronary artery disease status post 2 stents into RCA. 5. Hyperlipidemia. 6. History of CHF. 7. History of renal cancer status post right nephrectomy. 8. History of prostate cancer status post radiation treatment. 9. History of lymphoma. 10. History of sarcoidosis. 11. Dyslipidemia. 12. Status post right nephrectomy. 13. History of tonsillectomy. MEDICATIONS: At home include: 1. Simvastatin 40 mg daily. 2. Toprol-XL 25 mg daily. 3. Lisinopril 10 mg at bedtime. 4. Aspirin 81 mg daily. 5. Eliquis 5 mg twice a day. Please note that out of these medications, lisinopril is the most recently introduced approximately 2 months ago. ALLERGIES TO MEDICATIONS: No known drug allergies. FAMILY HISTORY: Mother with history of arrhythmia. Father lived to the age of 91 and of "old age." SOCIAL HISTORY: The patient denies any tobacco, alcohol, or drug use. 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 He lives with his who is his surrogate. REVIEW OF SYSTEMS: Please see history of present illness. All the remaining 12 systems were reviewed with the patient and were otherwise negative. PHYSICAL EXAMINATION GENERAL: The patient is a very pleasant 77-year-old male, who is in no acute distress. Alert, awake, and oriented x3. VITAL SIGNS: Blood pressure of 142/85, heart rate of 60 and irregularly irregular, respiratory rate 15, oxygen saturation 96% on room air, temperature of 98.6. HEENT: Head: Atraumatic, normocephalic. Eyes: Pupils are equal, reactive to light and accommodation. Oropharynx clear. Mucosa moist. NECK: Supple. No JVD. No bruits bilaterally. RESPIRATORY: Clear to auscultation bilaterally. CARDIOVASCULAR: Irregularly irregular rhythm. No murmur. ABDOMEN: Soft, nontender. Bowel sounds are present in all 4 quadrants. EXTREMITIES: There is no edema. Pulses are +2 bilaterally. No clubbing, cyanosis. SKIN: No ecchymotic areas or rashes noted. NEUROLOGIC: Speech is clear. Cranial nerves II through XII are grossly intact. Motor strength is 5/5 bilaterally. PSYCHIATRIC: Pleasant, cooperative with evaluation. Oriented x3. No evidence of anxiety or depression. LABORATORY DATA: Includes: White blood cell count of 6.9, hemoglobin of 15.0, hematocrit 45, and platelets of 170,000. Sodium 138, potassium 4.5, chloride 106, carbon dioxide 27, BUN 21, creatinine 1.4. Liver function tests unremarkable apart from slight elevation of total bilirubin of 1.4. Brain natriuretic peptide was 372. TSH was noted to be 5.3. Urinalysis showed trace esterase, trace wbc's and absent bacteria. IMAGING: The patient's EKG showed atrial fibrillation with a heart rate of 52 beats per minute with deep negative T waves in leads V2 to V6 that are comparable with prior EKGs. ASSESSMENT AND PLAN: A 77-year-old male with history of atrial fibrillation who presents complaining of episodes of dizziness. In the past, the patient refused an implantable lunchroom monitor. At this point, the patient appears to have had another episode of sinus pause. At this point, he felt "a sensation in his throat." He had several other episodes in the past with most recent syncope reported approximately a month ago. It is possible that the patient has a vagal episode when he drinks carbonated beverage due to distention of the esophagus in light of history of esophageal stricture. Nevertheless, the patient is on a beta- neisha. He is going to be placed on overnight observation on telemetry monitored bed. I will ask Dr. Collado to see the patient in cardiac evaluation. Of note, the patient had a negative cardiac stress test in September [address] Collado's medical records. Hopefully with the discontinuation of beta-neisha, the patient's bradycardia/sinus pause will not recur and he will be able to go home to have Gastroenterology evaluation as outpatient. 1. Acute kidney injury. The patient is dehydrated. We will stop his lisinopril and place the patient on intravenous hydration. 2. Diarrhea. At this point, the patient has 3 to 4 loose bowel movements a day. Stool cultures are pending at the time of dictation. His stool C. diff testing is negative. The patient will likely also require further evaluation with marble cutter in regards to that. For the time being, we will treat supportively. 3. The patient's code status is full. 4. For DVT prophylaxis, the patient is going to be continued on Eliquis. TIME SPENT: Approximately 65 minutes were spent on admission of this patient, more than half that time was spent [id number] with the patient during the interview and physical exam. [id number]/CPS #: [id number] [facility]PITALBrianna
[2018-01-16] MEDS: Apixaban* 5 MG TAB PO SCH (22:15)
[2018-01-17] MEDS: NS 0.9% 1000 ML* 1,000 ML IV SCH (01:33)
[2018-01-17 06:33] LABS: ABS Basophils 0.1 10^3/ul (0-0.2); ABS Eosinophils 0.4 10^3/ul (0-0.6); ABS Lymphocytes 1.3 10^3/ul (1.0-4.8); ABS Monocytes 0.7 10^3/ul (0-0.8); ABS Neutrophils 3.7 10^3/ul (1.5-7.7); ABS Nucleated RBC 0 10^3/ul; Eosinophil % 6.4 % (0-6); Hematocrit 41 % (42-52); Hemoglobin 13.9 g/dl (14.0-18.0); Lymphocyte % 20.6 % (25-47); Mean Corpuscular HGB Conc 34 g/dl (31-36); Mean Corpuscular Hemoglobin 29 pg (27-31); Mean Corpuscular Volume 85 fL (80-94); Mean Platelet Volume 8.5 um3 (7.4-10.4); Nucleated Red Blood Cells % 0.1; Platelet Count 148 10^3/ul (150-450); Red Blood Count 4.87 10^6/ul (4.00-5.40); Red Cell Distribution Width 14 % (10.5-15); White Blood Count 6.1 10^3/ul (3.5-10.8)
[2018-01-17 07:02] LABS: EGFR Non-African American 64.6 (>60)
[2018-01-17] MEDS: Apixaban* 5 MG TAB PO SCH (07:46)
[2018-01-17] MEDS: Aspirin 81 mg CHEW TAB* 81 MG TAB.CHEW PO SCH (07:46)
--- NOTE | 2018-01-17 09:41 | PN ---
Subjective Date of Service: 01/17/18 Interval History: Pt denies abd pain. No BM since admission. Had a 3 sec pause when swallowing pills this AM Objective Active Medications: Acetaminophen (Tylenol Tab*) 650 mg PO Q4H PRN PRN Reason: FEVER/PAIN Aspirin (Aspirin 81 Mg Chew Tab*) 81 mg PO QAM [facility] Last Admin: 01/17/18 07:46 Dose: 81 mg Morphine Sulfate (Morphine Inj ((Syringe))*) 1 mg IV Q4H PRN PRN Reason: PAIN - MILD Vital Signs - 8 hr 01/17/18 01/17/18 01/17/18 03:25 04:00 08:01 Temperature 98.2 F 98.2 F Pulse Rate 59 66 67 Respiratory 16 16 20 Rate Blood Pressure 127/70 128/77 (mmHg) O2 Sat by Pulse 99 96 96 Oximetry 01/17/18 01/17/18 08:12 08:13 Temperature Pulse Rate 67 78 Respiratory Rate Blood Pressure 128/77 141/89 (mmHg) O2 Sat by Pulse Oximetry Oxygen Devices in Use Now: None Appearance: 77 yo M in nAD, aAOx3 Eyes: No Scleral Icterus, PERRLA Ears/Nose/Mouth/Throat: NL Teeth, Lips, Gums, Mucous Membranes Moist Neck: NL Appearance and Movements; NL JVP, Trachea Midline Respiratory: Symmetrical Chest Expansion and Respiratory Effort, Clear to Auscultation Cardiovascular: - - irregular Abdominal: NL Sounds; No Tenderness; No Distention, No Hepatosplenomegaly Lymphatic: No Cervical Adenopathy Extremities: No Clubbing, Cyanosis, - - trace pedal edema b/l Skin: No Rash or Ulcers, No Nodules or Sclerosis Neurological: Alert and Oriented x 3, NL Muscle Strength and Tone Result Diagrams: 01/17/18 06:16 01/17/18 06:16 Microbiology and Other Data: Microbiology 01/16/18 12:00 Stool Gross Appearance - Final Stool C. difficile DNA Amplification - Final 027 Presumptive NEGATIVE Toxigenic C.diff NEGATIVE 01/16/18 11:58 Stool Gross Appearance - Final Stool Stool Lactoferrin - Final Assess/Plan/Problems-Billing Assessment: 77 yo M with h/o esophageal stricture(dx in 06/19), chronic A. fib presents with loose stools x 2 months , noted to be dehydrated, orthostatic and had a >3 sec sinus pause - Patient Problems (1) Loose stools Comment: c .Diff neg, stool cx pending (2) Swallowing disorder Comment: esophogram found mild smooth stricture in 06/2017. (3) Sinus pause Comment: cont to recur when has problems swallowing ? vagal episodes, but unable to clear for EGD with sinus pauses Plan for pacer in 2-3 days(pt was on Eliquis till 01/17/18 AM) cont telem cont to hold lopressor (4) Afib Comment: Remains in rate controlled afib. (5) HTN (hypertension) Comment: Normotensive, off meds for now (6) PATEL (acute kidney injury) Comment: due to dehyration, resolving cont to hold lisinopril (7) DVT prophylaxis Comment: HSQ Status and Disposition: Inpatient
[2018-01-17] MEDS ORDERED: Melatonin 3 MG TAB PO PRN (20:18)
[2018-01-17] MEDS: Heparin VIAL(*) 5000 UNITS/ML VIAL (FIVE THOUSAND) SUBCUT SCH (21:12)
--- NOTE | 2018-01-18 00:58 | CONS ---
CARDIOLOGY CONSULTATION: DATE OF CONSULT: 01/17/18 INDICATION FOR CONSULTATION: Atrial fibrillation and syncope. HISTORY OF PRESENT ILLNESS: The patient is a 77-year-old gentleman with a history of paroxysmal atrial fibrillation now, chronic atrial fibrillation, and a history of mild coronary artery disease. The patient was admitted to the hospital with an episode of syncope in June of 2017. At that time, he was in chronic atrial fibrillation with occasional episodes of bradycardia. I had seen the patient in followup a number of times since then. The patient had a couple of episodes of syncope that were associated with drinking cold liquids. The patient has some symptoms that would suggest esophageal stricture. I had encouraged the patient to see an vascular manager at times. I had also encouraged the patient to get an implantable event monitor for monitoring of his symptoms and heart rate. The patient did not follow through these recommendations. The patient came to the emergency room with a complaint of chronic diarrhea; however, he does report further episodes of syncope. In the emergency room, he was noted to be in atrial fibrillation with occasional heart rates down to 26 beats per minute. The patient was admitted to the hospital for observation. Overnight, the patient continued to have significant episodes of bradycardia. PAST MEDICAL HISTORY: Significant for mild coronary artery disease; chronic atrial fibrillation; renal cell carcinoma, status post right nephrectomy; hyperlipidemia; hypertension; sarcoidosis. OUTPATIENT MEDICATIONS: 1. Aspirin 81 mg a day. 2. Eliquis 5 mg b.i.d. 3. Lisinopril 10 mg a day. 4. Metoprolol 25 mg once a day. 5. Simvastatin 40 mg a day. ALLERGIES: He is intolerant of NORVASC. FAMILY HISTORY: Negative for early coronary artery disease or cardiac arrhythmias. SOCIAL HISTORY: He is . He is currently retired. Denies tobacco or alcohol use. He exercises regularly on a treadmill. He has rare caffeine intake. PHYSICAL EXAM: Height is 5 feet 7 inches, weight is 186 pounds. Vital Signs: Temperature 97.3, heart rate is 68 and irregular, blood pressure 141/89, respiratory rate is 16, oxygen saturation 99% on room air. Sclerae anicteric. Oropharynx is pink without erythema. Carotids are 2+ without bruits. JVD is normal. Thyroid is normal. Cardiac Exam: S1, S2 without any murmurs, rubs, or gallops. Lungs: Clear to auscultation bilaterally with no dullness to percussion. Abdomen is soft, nontender, nondistended with normoactive bowel sounds. Extremities show no edema. He has 2+ pulses throughout. The patient is awake, alert, and oriented. He moves all 4 extremities equally. DIAGNOSTIC STUDIES/LAB DATA: CBC within normal limits. Chemistries within normal limits. BUN 18, creatinine 1.1. BNP 372. EKG demonstrates atrial fibrillation, otherwise unremarkable. Telemetry does show atrial fibrillation with occasional heart rates down to 26 beat per minute. IMPRESSION AND PLAN: This is a 77-year-old gentleman with a history of chronic atrial fibrillation who has been having episodes of syncope again. Most of the syncope occurs with drinking cold liquids, which may be a vagal reaction. However, given his severe low heart rates at times during the hospitalization, I think a pacemaker implantation is appropriate. Risks and benefits of this is describes in detail and the patient is willing to proceed. [id number]/CPS #: [id number] MTDD
--- NOTE | 2018-01-18 01:57 | CONS ---
CANCEL DICTATION PER DR. DANIELLE CC: Silvio Laurent, physician [employer] assistant manager. CARDIOLOGY CONSULT: DATE OF CONSULT: 01/17/18 INDICATION FOR CONSULTATION: Aortic valve replacement and chronic atrial fibrillation. HISTORY OF PRESENT ILLNESS: The patient is a 77-year-old male with a history of aortic valve replacement . CANCELED DICTATION [id number]/[facility] #: [id number] MTDD
[2018-01-18] MEDS: Heparin VIAL(*) 5000 UNITS/ML VIAL (FIVE THOUSAND) SUBCUT SCH ×2 (05:30→13:20)
[2018-01-18] MEDS: Aspirin 81 mg CHEW TAB* 81 MG TAB.CHEW PO SCH (08:01)
--- NOTE | 2018-01-18 11:06 | PN ---
Subjective Date of Service: 01/18/18 Interval History: Pt feels well. Still continues to have problems when swallowing bigger pieces of food. Was advised to cut his meat to smaller pieces Objective Active Medications: Acetaminophen (Tylenol Tab*) 650 mg PO Q4H PRN PRN Reason: FEVER/PAIN Aspirin (Aspirin 81 Mg Chew Tab*) 81 mg PO QAM [facility] Last Admin: 01/18/18 08:01 Dose: 81 mg Diazepam (Valium Tab(*)) 5 mg PO ONCE ONE Stop: 01/19/18 08:01 Heparin Sodium (Porcine) (Heparin Vial(*)) 5,000 units SUBCUT Q8HR [facility] Last Admin: 01/18/18 05:30 Dose: 5,000 units Cefazolin Sodium/Dextrose (Kefzol 2 Gm Premix In Ors(*)) 2 gm in 50 mls @ 100 mls/hr IVPB ONCE ONE Stop: 01/19/18 08:29 Sodium Chloride (Ns 0.9% 1000 Ml*) 1,000 mls @ 100 mls/hr IV PER RATE [facility] Melatonin (Melatonin) 3 mg PO BEDTIME PRN PRN Reason: SLEEP Last Admin: 01/17/18 21:12 Dose: 3 mg Morphine Sulfate (Morphine Inj ((Syringe))*) 1 mg IV Q4H PRN PRN Reason: PAIN - MILD Vital Signs - 8 hr 01/18/18 01/18/18 01/18/18 03:20 03:32 08:12 Temperature 98.0 F 98.0 F 97.8 F Pulse Rate 73 73 70 Respiratory 20 20 16 Rate Blood Pressure 111/56 111/56 119/82 (mmHg) O2 Sat by Pulse 99 99 99 Oximetry 01/18/18 09:27 Temperature Pulse Rate Respiratory 18 Rate Blood Pressure (mmHg) O2 Sat by Pulse Oximetry Oxygen Devices in Use Now: None Appearance: 77 yo M in NAD, AOx3 Eyes: No Scleral Icterus, PERRLA Ears/Nose/Mouth/Throat: NL Teeth, Lips, Gums, Mucous Membranes Moist Neck: NL Appearance and Movements; NL JVP, Trachea Midline Respiratory: Symmetrical Chest Expansion and Respiratory Effort, Clear to Auscultation Cardiovascular: NL Sounds; No Murmurs; No JVD, - - irregular Abdominal: NL Sounds; No Tenderness; No Distention Lymphatic: No Cervical Adenopathy Extremities: No Edema, No Clubbing, Cyanosis Skin: No Rash or Ulcers, No Nodules or Sclerosis Neurological: Alert and Oriented x 3, NL Muscle Strength and Tone Result Diagrams: 01/17/18 06:16 01/17/18 06:16 Microbiology and Other Data: Microbiology 01/16/18 12:00 Stool Gross Appearance - Final Stool C. difficile DNA Amplification - Final 027 Presumptive NEGATIVE Toxigenic C.diff NEGATIVE 01/16/18 11:58 Stool Gross Appearance - Final Stool Stool Lactoferrin - Final Assess/Plan/Problems-Billing Assessment: 77 yo M with h/o esophageal stricture(dx in 06/19), chronic A. fib presents with loose stools x 2 months , noted to be dehydrated, orthostatic and had a >3 sec sinus pause - Patient Problems (1) Loose stools Comment: C .Diff neg, stool cx neg, lactoferrin neg. may have problems with absorption will start probiotic for now (2) Swallowing disorder Comment: esophogram found mild smooth stricture in 06/2017. will d/x GI about a possible EGD after pacer placed (3) Sinus pause Comment: cont to recur when has problems swallowing ? vagal episodes, but unable to clear for EGD with sinus pauses Plan for pacer tomorrow (pt was on Eliquis till 01/17/18 AM) cont telem cont to hold lopressor (4) Afib Comment: Remains in rate controlled afib. (5) HTN (hypertension) Comment: Normotensive, off meds for now (6) PATEL (acute kidney injury) Comment: due to dehyration, resolving cont to hold lisinopril (7) DVT prophylaxis Comment: HSQ Status and Disposition: Inpatient
--- NOTE | 2018-01-18 11:20 | PN ---
Subjective Date of Service: 01/18/18 - CC: dizzy, loss of consiouness Interval History: The patient was seen with his in the room. No further episodes of dizziness or loss of consciousness. Dysphagia and dizziness with carbonated beverages discussed (and with some other foods). Medications Active Medications: Acetaminophen (Tylenol Tab*) 650 mg PO Q4H PRN PRN Reason: FEVER/PAIN Aspirin (Aspirin 81 Mg Chew Tab*) 81 mg PO QAM [facility] Last Admin: 01/18/18 08:01 Dose: 81 mg Diazepam (Valium Tab(*)) 5 mg PO ONCE ONE Stop: 01/19/18 08:01 Heparin Sodium (Porcine) (Heparin Vial(*)) 5,000 units SUBCUT Q8HR [facility] Stop: 01/18/18 23:59 Last Admin: 01/18/18 05:30 Dose: 5,000 units Cefazolin Sodium/Dextrose (Kefzol 2 Gm Premix In Ors(*)) 2 gm in 50 mls @ 100 mls/hr IVPB ONCE ONE Stop: 01/19/18 08:29 Sodium Chloride (Ns 0.9% 1000 Ml*) 1,000 mls @ 100 mls/hr IV PER RATE [facility] Melatonin (Melatonin) 3 mg PO BEDTIME PRN PRN Reason: SLEEP Last Admin: 01/17/18 21:12 Dose: 3 mg Morphine Sulfate (Morphine Inj ((Syringe))*) 1 mg IV Q4H PRN PRN Reason: PAIN - MILD Objective Vital Signs: Temp Pulse Resp BP Pulse Ox 97.8 F 70 18 119/82 99 01/18/18 08:12 01/18/18 08:12 01/18/18 09:27 01/18/18 08:12 01/18/18 08:12 Oxygen Devices in Use Now: None Appearance: older gentleman, s itting at 60 degrees, comfortable. Eyes: PERRLA Ears/Nose/Mouth/Throat: Clear Oropharnyx, Mucous Membranes Moist Neck: NL Appearance and Movements; NL JVP, No Thyroid Enlargement, Masses Respiratory: Symmetrical Chest Expansion and Respiratory Effort, Clear to Auscultation Cardiovascular: NL Sounds; No Murmurs; No JVD - irregular Abdominal: NL Sounds; No Tenderness; No Distention, No Hepatosplenomegaly Extremities: No Edema Skin: No Rash or Ulcers Neurological: Alert and Oriented x 3 Laboratory Results: 01/17/18 06:16 01/17/18 06:16 APTT 33.7 seconds (26.0-36.3) 01/16/18 10:29 Total Bilirubin 1.40 mg/dL (0.2-1.0) H 01/16/18 10:29 AST 19 U/L (13-39) 01/16/18 10:29 ALT 20 U/L (7-52) 01/16/18 10:29 Alkaline Phosphatase 87 U/L (34-104) 01/16/18 10:29 B-Natriuretic Peptide 372 pg/mL (-100) H 01/16/18 10:29 Total Protein 6.3 g/dL (6.4-8.9) L 01/16/18 10:29 Albumin 3.8 g/dL (3.2-5.2) 01/16/18 10:29 Globulin 2.5 g/dL (2-4) 01/16/18 10:29 Albumin/Globulin Ratio 1.5 (1-3) 01/16/18 10:29 TSH 5.37 mcIU/mL (0.34-5.60) 01/16/18 10:29 01/16/18 10:29 Troponin I 0.01 EKG Data: Monitor: afib, several 3 second pauses 7:45 PM yesterday Assessment/Plan 77 yo with chronic afib, tachybrady and recurrent dizzy and syncopal episodes with vagal triggers in setting of esophogeal stricture. Syncope and tachybrady: -Single chamber pacer in AM (will be off anticoagulation x 48 hours) Details risks and benefits discussed with the patient and his . I agree with plans for follow up on dysphagia after pacemaker implantation.
[2018-01-18] MEDS ORDERED: Lactobacillus Acidophilus* 1 TAB PO ONE (14:54)
[2018-01-18] MEDS: Lactobacillus Acidophilus* 1 TAB PO SCH (20:27)
[2018-01-19 06:08] LABS: ABS Basophils 0.1 10^3/ul (0-0.2); ABS Eosinophils 0.4 10^3/ul (0-0.6); ABS Monocytes 0.7 10^3/ul (0-0.8); ABS Neutrophils 3.5 10^3/ul (1.5-7.7); ABS Nucleated RBC 0 10^3/ul; Eosinophil % 5.3 % (0-6); Hematocrit 43 % (42-52); Hemoglobin 14.5 g/dl (14.0-18.0); Lymphocyte % 30.5 % (25-47); Mean Corpuscular HGB Conc 34 g/dl (31-36); Mean Corpuscular Hemoglobin 29 pg (27-31); Mean Corpuscular Volume 85 fL (80-94); Mean Platelet Volume 8.4 um3 (7.4-10.4); Nucleated Red Blood Cells % 0.2; Platelet Count 168 10^3/ul (150-450); Red Blood Count 5.01 10^6/ul (4.00-5.40); Red Cell Distribution Width 14 % (10.5-15); White Blood Count 6.6 10^3/ul (3.5-10.8)
[2018-01-19 06:36] LABS: EGFR Non-African American 66.7 (>60)
[2018-01-19] MEDS: Aspirin 81 mg CHEW TAB* 81 MG TAB.CHEW PO SCH (07:41)
[2018-01-19] MEDS: Lactobacillus Acidophilus* 1 TAB PO SCH ×2 (07:46→21:44)
[2018-01-19] MEDS ORDERED: ceFAZolin 2 GM PREMIX in ORs 2 GM/50 ML BAG IVPB ONE (08:00)
[2018-01-19] MEDS ORDERED: Diazepam TAB(*) 5 MG PO ONE (08:00)
[2018-01-19] MEDS ORDERED: Diazepam TAB(*) 5 MG ONE (08:25)
[2018-01-19] MEDS ORDERED: Lidocaine 1% INJ* 10 MG/ML 30 ML SDV ONE (08:28)
[2018-01-19] MEDS ORDERED: Midazolam* 1 MG/ML 5 ML VIAL (5 MG) ONE ×2 (08:29→08:53)
[2018-01-19] MEDS ORDERED: fentaNYL* 50 MCG/ML 2 ML VIAL (100 MCG VIAL) ONE (08:29)
[2018-01-19] MEDS ORDERED: Iohexol 300* (CONTRAST) 10 ML SDV ONE (08:30)
[2018-01-19] MEDS ORDERED: Naloxone* 0.4 MG/ML 1 ML VIAL ONE (08:35)
[2018-01-19] MEDS ORDERED: Flumazenil* 0.1 MG/ML 5 ML MDV ONE (08:35)
--- NOTE | 2018-01-19 09:47 | PN ---
Subjective Date of Service: 01/19/18 - CC: dizzy, near syncope Interval History: No new c/o or concerns. Pt now s/p pacemaker implantation. Medications Active Medications: Acetaminophen (Tylenol Tab*) 650 mg PO Q4H PRN PRN Reason: FEVER/PAIN Aspirin (Aspirin 81 Mg Chew Tab*) 81 mg PO QAM [facility] Last Admin: 01/19/18 07:41 Dose: Not Given Sodium Chloride (Ns 0.9% 1000 Ml*) 1,000 mls @ 100 mls/hr IV PER RATE [facility] Lactobacillus Rhamnosus (Lactobacillus Acidophilus*) 1 tab PO BID [facility] Last Admin: 01/19/18 07:46 Dose: Not Given Melatonin (Melatonin) 3 mg PO BEDTIME PRN PRN Reason: SLEEP Last Admin: 01/17/18 21:12 Dose: 3 mg Morphine Sulfate (Morphine Inj ((Syringe))*) 1 mg IV Q4H PRN PRN Reason: PAIN - MILD Objective Vital Signs: Temp Pulse Resp BP Pulse Ox 99.1 F 66 20 138/68 98 01/19/18 04:03 01/19/18 04:03 01/19/18 08:25 01/19/18 04:03 01/19/18 04:03 Oxygen Devices in Use Now: None Appearance: older gentleman, lying flat, comfortable. Eyes: PERRLA Ears/Nose/Mouth/Throat: Clear Oropharnyx, Mucous Membranes Moist Neck: NL Appearance and Movements; NL JVP, No Thyroid Enlargement, Masses Respiratory: Symmetrical Chest Expansion and Respiratory Effort, Clear to Auscultation Cardiovascular: NL Sounds; No Murmurs; No JVD - irregular Abdominal: NL Sounds; No Tenderness; No Distention, No Hepatosplenomegaly Extremities: No Edema Skin: No Rash or Ulcers - incision left subclavian fossa fresh, no bleeding or ecchymosis. Neurological: Alert and Oriented x 3 Lines/Tubes/Other Access: Clean, Dry and Intact Peripheral IV Laboratory Results: 01/19/18 05:56 01/19/18 05:56 APTT 33.7 seconds (26.0-36.3) 01/16/18 10:29 Total Bilirubin 1.40 mg/dL (0.2-1.0) H 01/16/18 10:29 AST 19 U/L (13-39) 01/16/18 10:29 ALT 20 U/L (7-52) 01/16/18 10:29 Alkaline Phosphatase 87 U/L (34-104) 01/16/18 10:29 B-Natriuretic Peptide 372 pg/mL (-100) H 01/16/18 10:29 Total Protein 6.3 g/dL (6.4-8.9) L 01/16/18 10:29 Albumin 3.8 g/dL (3.2-5.2) 01/16/18 10:29 Globulin 2.5 g/dL (2-4) 01/16/18 10:29 Albumin/Globulin Ratio 1.5 (1-3) 01/16/18 10:29 TSH 5.37 mcIU/mL (0.34-5.60) 01/16/18 10:29 01/16/18 10:29 Troponin I 0.01 EKG Data: Monitor: afib, controlled ventricular rate. Assessment/Plan 77 yo with chronic afib, tachybrady and recurrent dizzy and syncopal episodes with vagal triggers in setting of esophogeal stricture. Syncope and tachybrady: -Single chamber pacer completed. -Resume NOAC in AM 01/20/18. Will get nurse discharge planner to evaluate home needs.
--- NOTE | 2018-01-19 15:00 | RAD ---
Indication: Device implant. Single frontal view of the chest performed at 1219 hours was reviewed. Comparison is made with previous exam dated January 16, 2018. No mediastinal shift is noted. Heart is of normal size and configuration. Lung anderson appear clear. Left-sided pacemaker leads are in place. No pneumothorax is noted. IMPRESSION: NO ACTIVE CARDIOPULMONARY DISEASE IS NOTED. PACEMAKER IN PLACE. NO PNEUMOTHORAX IS NOTED.
[2018-01-19] MEDS: ceFAZolin 1 GM VIAL(*) 1 GM in NS 0.9% 50 ML* 50 ML IVPB SCH ×2 (16:24→23:52)
[2018-01-19] MEDS: NS 0.9% 1000 ML* 1,000 ML IV SCH (16:24)
--- NOTE | 2018-01-19 22:07 | CONS ---
CC: Dr. Jailyn Pelaez; DIANE Wren * CONSULTATION REPORT: DATE OF CONSULT: 01/19/18 HOSPITALIST: Dr. Jailyn Pelaez. PRIMARY CARE PROVIDER: DIANE Wren REASON FOR CONSULT: Dysphagia for the last year. HISTORY OF PRESENT ILLNESS: This is a 77-year-old male with a history of AFib, with recurrent episodes of syncope. He was admitted and secondary to his recurrent episodes of syncope, a pacemaker was placed. He also states that during these episodes of dizziness, he does occasionally feel chest tightness in his throat and then feels like he may pass out. It usually happens after drinking a carbonated beverage. He feels like there is a lot of pressure in his esophagus and describes this as a dysphagia; however, he is unable to elaborate if it is more when he is initially swallowing or later in the swallowing phase. He states he is able to eat steak and chicken without any issue and that does not get stuck. He states he is able to swallow his pills without issue. He states this only occurs with liquids and has been going on for the last year. He also states that he occasionally has diarrhea 3 to 4 loose to liquid movements per day for the last 2 months. Denies any gross abdominal pain. He has lost 10 to 15 pounds per him over the last 2 to 3 months. It was recommended that he see a orchid superintendent, but he is yet to follow up. He denies any odynophagia. No melena or hematochezia. PAST MEDICAL HISTORY: Significant for atrial fibrillation with sinus pauses, status post pacemaker placement on 01/19/18; history of recurrent episodes of syncope; history of CHF; history of CAD, status post stenting; history of renal cell cancer, status post nephrectomy; history of prostate cancer, status post radiation; sarcoidosis; and dyslipidemia. He is also status post right nephrectomy. MEDICATIONS: Home medications include: 1. Simvastatin. 2. Toprol-XL. 3. Lisinopril. 4. Aspirin. 5. Eliquis. His Eliquis has been held for the pacemaker placement that was done today. ALLERGIES TO MEDICATIONS: No known drug allergies. FAMILY HISTORY: Denies any family history of colon cancer or stomach cancer. SOCIAL HISTORY: He denies any alcohol or tobacco use. REVIEW OF SYSTEMS: The remainder of the 14-point review of systems is grossly negative. PHYSICAL EXAM: Vital Signs: Blood pressure is 144/84, pulse is 102, respiratory rate is 22, 97.8 temperature. In general, alert and oriented x3, in no acute distress. HEENT: Atraumatic, normocephalic. Pupils are equal, round, and reactive to light. Extraocular movements are intact. Conjunctivae are pink. Sclerae are anicteric. Neck is supple. No thyromegaly appreciated. Cardiovascular: Irregular rate and rhythm. S1, S2. Respiratory: Grossly clear to auscultation bilaterally. Abdomen is soft, nontender, and nondistended. Bowel sounds are positive x4. Extremities: No clubbing, no cyanosis, no edema. Skin: No gross rashes are noted. Neurologic: Speech is clear with slight reluctance. Appropriate muscle tone and bulk. Psychiatric: Appropriate mood and affect. LABORATORY DATA: Hemoglobin is 14.5, WBC count of 6.6, platelet count is 168. Sodium is 139, potassium is 4.3, BUN is 17, creatinine is 1.07. His CRP is 21.28. Total bilirubin is 1.40. ASSESSMENT AND PLAN: This is a 77-year-old male with history of atrial fibrillation with pauses, who is status post pacemaker placement on 01/19/18. We were consulted for a longstanding dysphagia. He did have a barium swallow that was done in June of 2017 that revealed tertiary contractions and possible distal smooth narrowing of the distal esophagus, a small hiatal hernia without evidence of reflux and presbyesophagus. Given that his anticoagulation is currently being held, we will plan for upper endoscopy with possible dilatation on 01/20/18. However, based on his more liquid dysphagia symptoms and lack of solid dysphagia, I suspect this may be more neuromuscular in origin and may be oropharyngeal in origin. If the upper endoscopy is negative, I would recommend an eventual modified barium swallow and potential esophageal manometry to further delineate his source of dysphagia. In terms of his diarrhea, we will plan on biopsying the small bowel to rule out celiac and malabsorption. He can follow up in the office for further evaluation of this complaint. I suspect it may be medication related. [id number]/[facility] #: [id number] [facility]
--- NOTE | 2018-01-20 04:48 | OP ---
CC: PCP, DIANE Wren DATE OF OPERATION: 01/19/18 - ROOM #450 DATE OF : 36 SURGEON: eNllie Baxter MD ANESTHESIA: MAC. PRE-OP DIAGNOSIS: Chronic atrial fibrillation with tachybrady syndrome. POST-OP DIAGNOSIS: Chronic atrial fibrillation with tachybrady syndrome. OPERATIVE PROCEDURE: Single chamber pacemaker implantation. ESTIMATED BLOOD LOSS: Less than 5 cc. COMPLICATIONS: Left subclavian artery cannulation. INDICATIONS: The indications, risks, and benefits of the procedure were discussed with the patient in the presence of his and he was amenable to proceeding. The patient is right-handed and the left subclavian fossa was prepped and draped in the usual sterile fashion. His anticoagulants have been stopped for 48 hours. A time-out procedure was called. Following this, the patient received a total of 5 mg of Versed and 50 mcg of fentanyl as well as 18 cc of 1 % lidocaine for local anesthesia. Using fluoroscopic guidance, 10 cc of dye was injected into the left upper extremity and the left axillary and left subclavian veins were outline. Following this, after the local anesthesia using a 10 blade knife, a 2.5 cm incision was made in the left subclavian fossa and using Bovie and blunt dissection was extended to the level of the pectoralis muscle. Additional lidocaine was infused and using blunt dissection, a small pocket was fashioned. Using a modified Seldinger technique, the left subclavian vein was cannulated, prior to cannulating the vein, the left subclavian artery was stuck, direct pressure had been held for 5 minutes. Once the left subclavian vein was cannulated, a guidewire was inserted using fluoroscopic guidance and using an introducer technique, the right ventricular lead was guided into the right ventricular apex and actively fixed in place. The lead was sutured to the pocket using 0 silk suture taking care to ensure there was adequate extra lead. There was no diaphragmatic pacing at 10 volts. Pacing and sensing thresholds were rechecked and found to be improving and excellent. The lead was then sutured to the pocket using 0 silk suture and the lead was attached to the device. The device was placed in the pocket and the incision was closed using 2 layers of absorbable suture, 2-0 followed by 4-0 followed by daylin and external dressing. The patient was hemodynamically stable throughout the procedure. FINDINGS: The system is a [employer] MRI compatible system. The pacemaker is a [employer] model [id number] serial number [id number]. The lead is an [employer] MRI compatible model #BPC8145G/58 serial number [id number]. R-waves were sensed at 32.4 mV with a ventricular lead impedance of 704 ohms and a ventricular pacing threshold of 0.6 volts at 0.4 msec. Again, the patient was hemodynamically stable throughout the procedure and on transfer to the floor. [id number]/[facility] #: [id number] CHRISTY
[2018-01-20] MEDS: NS 0.9% 1000 ML* 1,000 ML IV SCH (05:22)
[2018-01-20] MEDS: ceFAZolin 1 GM VIAL(*) 1 GM in NS 0.9% 50 ML* 50 ML IVPB SCH (08:26)
[2018-01-20] MEDS: Lactobacillus Acidophilus* 1 TAB PO SCH ×2 (08:34→13:54)
[2018-01-20] MEDS: Aspirin 81 mg CHEW TAB* 81 MG TAB.CHEW PO SCH ×2 (08:34→13:54)
--- NOTE | 2018-01-20 08:54 | RAD ---
INDICATION: Post pacemaker placement. History of sarcoidosis. COMPARISON: January 19, 2018 TECHNIQUE: Dual energy PA and routine lateral views of the chest were obtained. REPORT: Elevated lung volumes and both mild prominence and patchy rarefaction of interstitial markings. Negative for pleural effusion or pneumothorax. RIGHT ventricular level pacemaker lead extends from the LEFT chest wall control device. Overlying cutaneous daylin at the LEFT chest wall. Mild cardiomegaly. Unremarkable central pulmonary vasculature and mediastinal contours. IMPRESSION: #. Negative for pneumothorax or pulmonary edema post pacemaker placement. #. Stigmata of probable obstructive pulmonary disease and emphysema.
[2018-01-20] MEDS ORDERED: fentaNYL* 50 MCG/ML 2 ML VIAL (100 MCG VIAL) ONE (11:05)
[2018-01-20] MEDS ORDERED: Midazolam* 1 MG/ML 10 ML VIAL (10 MG) ONE (11:05)
[2018-01-20] MEDS ORDERED: Metoprolol Succinate XL TAB* 25 MG PO SCH (14:00)
[2018-01-20 15:44] VITALS: BP 126/73
--- NOTE | 2018-01-21 10:22 | DS ---
CC: DIANE Wren; Dr. Raza; Dr. Salgado; Dr. Jane; Dr. Collado; Dr. Baxter; Dr. Connelly; Dr. Barajas.* DISCHARGE SUMMARY: DATE OF ADMISSION: 01/16/18 DATE OF DISCHARGE: 01/20/18 PRIMARY CARE PROVIDER: DIANE Stevens from [facility] in [place], [place]. DISCHARGE DIAGNOSES: 1. Acute kidney injury due to dehydration secondary to loose stools. 2. Orthostatic hypotension due to dehydration and above. 3. Sinus pauses status post pacemaker placement performed by Dr. Baxter on . The pacemaker was placed in the left subclavian area, it is [employer] pacemaker MRI compatible system, model [id number], serial number [id number]. 4. Dysphagia, status post upper endoscopy performed by Dr. Barajas on 01/20, which as per verbal report was grossly negative apart from mild duodenitis and gastritis. Pathology testing is still pending at the time of dictation. MEDICATIONS AT DISCHARGE: Includes: 1. Aspirin 81 mg daily. 2. Metoprolol succinate 25 mg daily. 3. Zocor 40 mg at bedtime. 4. Eliquis 5 mg b.i.d. 5. Cephalexin 250 mg 3 times a day for 4 days total. 6. Probiotic 1 capsule b.i.d. 7. Omeprazole 20 mg daily. The patient will set up with VNS at home. The patient is to follow up with his primary care provider in approximately 4-7 days. The patient also scheduled with Dr. Collado for post pacemaker check on 01/25/18 at 2:30 p.m. Post pacemaker specific discharge instructions were given to the patient and are included in his discharge documentation. LABORATORY DATA/STUDIES: Performed during the hospital stay include: On ; sodium 139, potassium 4.3, chloride 108, carbon dioxide 25, BUN 17, creatinine 1.07. Creatinine at admission was 1.4. The patient's brain natriuretic peptide was 372, C-reactive protein was 21. The patient's TSH at admission was 5.3. PSA level was 0.1 on 01/17/18. On 01/19/18; white blood cell count 6.6, hemoglobin 14.5, hematocrit 43, and platelets 168. Patient's C. diff testing on stool was negative. Stool lactoferrin was negative and Shiga toxin and remaining cultures were also negative. Portable chest x-ray obtained on 01/20/18 post-pacemaker replacement. Impression: "Negative for pneumothorax and pulmonary edema post pacemaker placement. Stigmata of probable obstructive disease and emphysema." PROCEDURES DURING THE HOSPITAL STAY: Include: 1. Pacemaker placement by Dr. Baxter on 01/19/18. 2. Upper endoscopy performed by Dr. Barajas on 01/20/18. At discharge patient is recommended to undergo a video swallow evaluation with barium under Speech Therapy guidance to evaluate further to pharyngeal dysphagia. Until then the patient is asked to continue soft diet, abstain from soda drinks and continue on cardiac diet with low salt. PHYSICAL EXAM AT THE TIME OF DISCHARGE: Blood pressure 148/89, heart rate of 70 and regular, respiratory rate is 16, oxygen saturation 95% on room air, temperature 97.7. General: The patient is a very pleasant 77-year-old male who is rather poor historian. The patient is not in acute distress. Alert, and oriented x3. HEENT: Head: Atraumatic, normocephalic. Eyes: Pupils equal and reactive to light and accommodation. Oropharynx clear. Mucosa moist. Neck : Supple. No JVD. No bruits bilaterally. Cardiovascular: Irregularly irregular rhythm. No murmurs. Respiratory: Clear to auscultation bilaterally. Abdomen: Soft, nontender. Bowel sounds are present in all 4 quadrants. Extremities: There is trace bilateral ankle edema. Pulses are +2 bilaterally. No clubbing or cyanosis. On evaluation of the skin, the patient's left subclavian area status post pacemaker insertion is stapled with no evidence of dehiscence, infection or hematoma. The wound edges are approximated well. On neuro evaluation, speech is clear. Cranial nerves II through XII grossly intact. Motor strength is 5/5 bilaterally. At discharge once again the patient is recommended to follow up with his primary provider and have an outpatient video swallow evaluation performed. HOSPITALIZATION COURSE: Emil Pastor is a 77-year-old male who presented to the hospital complaining of loose stools and weakness. The patient also had been reporting episodes of syncope whenever he drinks soda and the most recent one happened a month prior to his presentation to the ED. When in the ED, he had over 3-second pause when he was trying to swallow something. It was suspected that patient likely has problems with dysphagia and stimulation of the vagal nerve when swallowing causes for the patient to develop sinus pauses. The patient also had acute kidney injury and appeared dehydrated. He was admitted to the hospital and observed on telemetry monitored bed. Despite discontinuation of metoprolol and lisinopril, the patient continued to have sinus pauses. He was otherwise in chronic atrial fibrillation. After hydration and after his DARA inhibitor was held the patient's creatinine was back to his baseline. The patient was seen by cardiology service who recommended pacemaker and it was placed as mentioned above. Post pacemaker, the patient was seen by Dr. Connelly with consultation from Gastroenterology in regards to his swallowing problems. The patient's esophagogram in June 2017 showed mild esophageal narrowing, possibility of stricture. Dr. Luli Thompson performed an upper endoscopy on the patient on the day of discharge. As per verbal report that I received from the pig caster there was mild inflammation noted in the duodenum and stomach, but no other source of patient' s dysphagia was found. At that point, Dr. Barajas recommended a video barium swallow with speech therapy. The patient preferred not to have it done in the hospital as he had "too many procedures already" and wished to go home. The patient is recommended to follow up with this procedure as outpatient and remain on soft diet until then. He did well after pacemaker insertion and he is to follow up with Dr. Collado for pacemaker check as described above from 01/25/18. Please note that this is a short summary of the patient's hospital stay. Please refer to further medical records for details. TIME SPENT: Approximately 50 minutes was spent on the patient's discharge. [id number]/[facility] #: [id number] CHRISTY
--- NOTE | 2018-01-21 10:39 | PRO ---
PROCEDURE NOTE: DATE OF PROCEDURE: PROCEDURE: EGD with biopsy. PRIMARY CARE PHYSICIAN: DIANE Stevens INDICATION: Possible dysphagia and diarrhea. MEDICATIONS GIVEN: 1. Midazolam 4.5 mg IV. 2. Fentanyl 25 mcg IV. PROCEDURE IN DETAIL: Full disclosure of risks were reviewed with the patient and patient's as detailed on the consent form. The patient was left supine given recent pacemaker placement causing arm discomfort. He was monitored with continuous pulse oximetry, interval blood pressure monitoring, and direct observation. A bite-block was placed between the teeth. An Olympus gastroscope was then inserted into the patient's mouth, advanced down the esophagus, into the stomach, and into the distal duodenum. Gastroscope passed easily into the upper esophagus without any evidence of diverticulum, rings, strictures or masses. The distal esophagus was noted to be quite spastic, although there was no clear Schatzki's ring or stricture on close inspection in the area of spasm. The scope easily traversed through the esophagus into the stomach. The GE junction was normal at 40 cm. The gastric mucosa was examined in forward and retroflexed views. There was mild gastric erythema. The scope was then advanced into the duodenum and to the third portion of the duodenum. There was mild duodenal erythema. Biopsies were obtained to rule out celiac disease given his diarrhea. The scope was then withdrawn from the patient. He tolerated the procedure well and was returned to the recovery room in stable condition. IMPRESSION: 1. Complete upper endoscopy to the distal duodenum. 2. No rings, strictures, or masses noted in the esophagus. 3. Esophagus noted to be quite spastic, particularly in the distal esophagus. 4. Mild gastric and duodenal erythema. Duodenal biopsies obtained. RECOMMENDATIONS: 1. Follow up pathology. 2. Recommend obtaining a video fluoroscopic swallowing exam or modified barium swallow exam to evaluate for oropharyngeal dysphagia, particularly as the patient reports his symptoms of dysphagia starts before he even swallows food or liquid. Depending on the results of this study, we can consider pursuing esophageal manometry in outpatient setting to evaluate for an esophageal motility process. 3. Recommend H pylori stool antigen testing 4. Would consider starting H2 neisha or PPI as the patient is on anticoagulation and has some gastric erythema and duodenal erythema concerning for inflammation. 5. Will arrange for outpatient GI clinic follow-up [id number]/[facility] #: [id number] [facility]
== END 2018-01-20 16:15 | disposition home health service (06) | DRG 243 ==
LOC: ED 09:38 → MEDTELE 15:16 → OBSVTOIN 01-17 16:29
PROVIDERS: ADMIT Internal Medicine; ATTEND Internal Medicine
PROC: 02HK3JZ Insertion of Pacemaker Lead into Right Ventricle, Percutaneous Approach (ICD-10-PCS; 2018-01-19)
PROC: 0JH604Z Insertion of Pacemaker, Single Chamber into Chest Subcutaneous Tissue and Fascia, Open Approach (ICD-10-PCS; principal; 2018-01-19 08:30)
PROC: 0DB98ZX Excision of Duodenum, Via Natural or Artificial Opening Endoscopic, Diagnostic (ICD-10-PCS; 2018-01-20)
DX: I49.5 Sick sinus syndrome (principal); N17.9 Acute kidney failure, unspecified; I45.5 Other specified heart block; I95.1 Orthostatic hypotension; I48.2 Chronic atrial fibrillation; K22.2 Esophageal obstruction; I25.10 Atherosclerotic heart disease of native coronary artery without angina pectoris; E78.5 Hyperlipidemia, unspecified; I50.9 Heart failure, unspecified; Z85.528 Personal history of other malignant neoplasm of kidney; Z90.5 Acquired absence of kidney; Z85.46 Personal history of malignant neoplasm of prostate; Z92.3 Personal history of irradiation; Z85.72 Personal history of non-Hodgkin lymphomas; D86.9 Sarcoidosis, unspecified; Z82.49 Family history of ischemic heart disease and other diseases of the circulatory system; E86.0 Dehydration; Z95.5 Presence of coronary angioplasty implant and graft; I11.0 Hypertensive heart disease with heart failure; N40.0 Benign prostatic hyperplasia without lower urinary tract symptoms; Z87.442 Personal history of urinary calculi; Z97.4 Presence of external hearing-aid; R13.10 Dysphagia, unspecified; K44.9 Diaphragmatic hernia without obstruction or gangrene; R19.7 Diarrhea, unspecified; K29.80 Duodenitis without bleeding; K29.70 Gastritis, unspecified, without bleeding; Z79.82 Long term (current) use of aspirin; Z79.01 Long term (current) use of anticoagulants
CPT/HCPCS: 33207; 36415; 71045; 71046; 80048; 80053; 81003; 81015; 82550; 83605; 83630; 83735; 83880; 84153; 84443; 84484; 85025; 85730; 86140; 87045; 87046; 87077; 87086; 87493; 87899; 88305; 93005; 99156; 99157; 99212; 99284; A9270-GY; C1786; C1898; G0103; G0378; G0463; J0690; J1644; J2250; J2270; J2310; J3010

== ENCOUNTER 2019-04-10 10:21 | Day surgery (SDC) | payer MEDICARE ==
[~2019-04-10 10:21] MED LIST: Buffered Lidocaine 1% SYRIN* 1 ML/SYRINGE INTRADERM ONE
[2019-04-10] MEDS ORDERED: Midazolam* 1 MG/ML 2 ML VIAL (2 MG) ONE (11:27)
[2019-04-10 12:13] VITALS: BP 153/85
[2019-04-10] MEDS ORDERED: Tetracaine 0.5% OPTH.SOL 4 ML* 1 DROP BTL ONE (13:41)
[2019-04-10] MEDS ORDERED: Phenylephrine OPHTH SOL 2.5%* 2 ML ONE (13:41)
[2019-04-10] MEDS ORDERED: Neomycin/Polymy/Dex OPHTH.OIN* 3.5 GM ONE (13:41)
[2019-04-10] MEDS ORDERED: Ketorolac 0.5% OPHTH (NF) 0.5 % 5 ML BTL ONE (13:41)
[2019-04-10] MEDS ORDERED: Tropicamide 1% OPTH.SOL* BTL ONE (13:41)
[2019-04-10] MEDS ORDERED: Lidocaine 1% MPF ** 5 ML VIAL ONE (13:41)
[2019-04-10] MEDS ORDERED: Cyclopentolate 1% OPTH.SOL* 2 ML BTL ONE (13:41)
--- NOTE | 2019-04-10 13:47 | OP ---
DATE OF OPERATION/DATE OF DICTATION: 04/10/2019 - [facility] DATE OF : 1940. SURGEON: Dr. Emil Feng. WEED ERADICATOR: None. ANESTHESIA: Topical with intravenous sedation. PRE-OP DIAGNOSIS: Cataract, right eye. POST-OP DIAGNOSIS: Cataract, right eye. OPERATIVE PROCEDURE: Phacoemulsification and cataract extraction with posterior chamber intraocular lens implant, right eye. COMPLICATIONS: None. BLOOD LOSS: None. DESCRIPTION OF PROCEDURE: The patient was brought to the operating room and received a small amount of intravenous sedation. A drop of Tetracaine was placed in his right eye. He was prepped and draped in the usual sterile fashion for ophthalmic surgery and attention was directed to the right eye where a speculum was placed. A paracentesis was created at the 11 o'clock position and 0.1 cc of 1 percent preservative-free Lidocaine was injected into the anterior chamber followed by DisCoVisc. The eye was digitally stabilized while a 2.75 mm keratome was used to create a triplanar clear corneal incision at the 9 o'clock position. A continuous curvilinear capsulorrhexis was created with a cystotome and Utrata forceps. BSS on a cannula was used to hydrodissect the lens from the capsule. Phacoemulsification was performed in a divide-and- conquer technique to create four fragments which were removed. Residual cortical material was removed with irrigation and aspiration. DisCoVisc was used to inflate the capsular bag and an AUOOTO 21.0 diopter lens was folded and inserted into the capsular bag. DisCoVisc was removed using irrigation and aspiration. BSS on a cannula was used to hydrate the corneal stroma and seal the wound. At the end of the case the pupil was round and the lens was centered. The eye was of normal pressure and the wound was water tight. The speculum was removed and topical Maxitrol ointment was placed on the surface of the eye. The eye was closed, patched and shielded and the patient was sent to the recovery room in stable condition with post operative instructions and follow-up appointment given. [id number]/[facility] #: [id number] [facility]
== END 2019-04-10 12:28 | disposition home or self-care (01) ==
LOC: OREAST 10:21
PROVIDERS: ATTEND Ophthalmology
DX: H25.11 Age-related nuclear cataract, right eye (principal); I48.91 Unspecified atrial fibrillation; Z79.01 Long term (current) use of anticoagulants; Z95.0 Presence of cardiac pacemaker; I10 Essential (primary) hypertension; Z85.528 Personal history of other malignant neoplasm of kidney; Z85.46 Personal history of malignant neoplasm of prostate; Z90.5 Acquired absence of kidney; K21.9 Gastro-esophageal reflux disease without esophagitis; Z95.5 Presence of coronary angioplasty implant and graft; C85.10 Unspecified B-cell lymphoma, unspecified site
CPT/HCPCS: A9270-GY; J2250; V2632

== ENCOUNTER 2019-04-17 07:38 | Day surgery (SDC) | payer MEDICARE ==
[~2019-04-17 07:38] MED LIST changes: +Acetaminophen TAB* 325 MG PO PRN
[2019-04-17] MEDS ORDERED: fentaNYL* 50 MCG/ML 2 ML VIAL (100 MCG VIAL) ONE (08:14)
[2019-04-17] MEDS ORDERED: Midazolam* 1 MG/ML 5 ML VIAL (5 MG) ONE (08:14)
[2019-04-17 09:45] VITALS: BP 119/74
--- NOTE | 2019-04-17 13:38 | OP ---
DATE OF OPERATION: 04/17/19 MERGED WITH [facility] DATE OF : 36 SURGEON: Dr. Emil Feng. HR REPRESENTATIVE: None. ANESTHESIA: Topical with intravenous sedation. PRE-OP DIAGNOSIS: Cataract, left eye. POST-OP DIAGNOSIS: Cataract, left eye. OPERATIVE PROCEDURE: Phacoemulsification and cataract extraction with posterior chamber intraocular lens implant, left eye. COMPLICATIONS: None. BLOOD LOSS: None. DESCRIPTION OF PROCEDURE: The patient was brought to the operating room and received a small amount of intravenous sedation. A drop of Tetracaine was placed in the patient's left eye. The patient was prepped and draped in the usual sterile fashion for ophthalmic surgery and attention was directed to the left eye where a speculum was placed. A paracentesis was created at the 5 o' clock position and 0.1 cc of 1 percent preservative-free Lidocaine was injected into the anterior chamber followed by DisCoVisc. The eye was digitally stabilized while a 2.75 mm keratome was used to create a triplanar clear corneal incision at the 3 o'clock position. A continuous curvilinear capsulorrhexis was created with a cystotome and Utrata forceps. BSS on a cannula was used to hydrodissect the lens from the capsule. Phacoemulsification was performed in a [id number] technique to create four fragments which were removed. Residual cortical material was removed with irrigation and aspiration. DisCoVisc was used to inflate the capsular bag and an AU00T0 20.5 diopter lens was folded and inserted into the capsular bag. DisCoVisc was removed using irrigation and aspiration. BSS on a cannula was used to hydrate the corneal stroma and seal the wound. At the end of the case the pupil was round and the lens was centered. The eye was of normal pressure and the wound was water tight. The speculum was removed and topical Maxitrol ointment was placed on the surface of the eye. The eye was closed, patched and shielded and the patient was sent to the recovery room in stable condition with postoperative instructions and follow-up appointment given. [id number]/[facility] #: [id number] CHRISTY
== END 2019-04-17 09:31 | disposition home or self-care (01) ==
LOC: OREAST 07:38
PROVIDERS: ATTEND Ophthalmology
DX: H25.12 Age-related nuclear cataract, left eye (principal); I48.0 Paroxysmal atrial fibrillation; Z79.01 Long term (current) use of anticoagulants; I11.0 Hypertensive heart disease with heart failure; C61 Malignant neoplasm of prostate; Z85.528 Personal history of other malignant neoplasm of kidney; Z95.0 Presence of cardiac pacemaker; I50.20 Unspecified systolic (congestive) heart failure
CPT/HCPCS: J2250; J3010; V2632

== ENCOUNTER 2020-06-28 16:46 | Observation (INO) ==
[2020-06-28 17:20] LABS: ABS Basophils 0.1 10^3/ul (0-0.2); ABS Eosinophils 0.2 10^3/ul (0-0.6); ABS Lymphocytes 2.8 10^3/ul (1.0-4.8); Eosinophil % 2.1 %; Hematocrit 48 % (42-52); Hemoglobin 16.4 g/dL (14.0-18.0); Lymphocyte % 31.2 %; Mean Corpuscular HGB Conc 34 g/dL (31-36); Mean Corpuscular Hemoglobin 29 pg (27-31); Mean Corpuscular Volume 86 fL (80-94); Mean Platelet Volume 8.5 fL (7.4-10.4); Nucleated Red Blood Cells % 0.1; Platelet Count 191 10^3/uL (150-450); Red Blood Count 5.59 10^6 /uL (4.18-5.48); Red Cell Distribution Width 15 % (10-15); White Blood Count 9.1 10^3/uL (3.5-10.8)
[2020-06-28 17:26] LABS: INR 1.29 (0.82-1.09)
[2020-06-28 17:37] LABS: Albumin 4.2 g/dL (3.2-5.2); Albumin/Globulin Ratio 1.4 (1-3); BUN/Creatinine Ratio 16.2 (8-20); Calcium 9.1 mg/dL (8.6-10.3); EGFR African American 72.4 (>60); EGFR Non-African American 59.8 (>60); Globulin 2.9 g/dL (2-4); Potassium 4.2 mmol/L (3.5-5.0); Total Bilirubin 0.7 mg/dL (0.2-1.0); Total Protein 7.1 g/dL (6.4-8.9)
[2020-06-28 17:38] LABS: Troponin I 0.02 ng/mL (<0.03)
[2020-06-28] MEDS ORDERED: Iodixanol (CONTRAST) 320 MG/ML 100 ML SDV IV ONE (18:42)
[2020-06-28] MEDS ORDERED: Furosemide 20 mg/2 ml IV VIAL IV ONE (20:22)
[2020-06-28] MEDS ORDERED: Morphine 2 MG/ML SYRINGE IV PRN (20:26)
[2020-06-28 21:07] LABS: HDL Cholesterol 33.1 mg/dL
[2020-06-28] MEDS: CMCS: Simvastatin 20 mg TAB (NF) PO SCH (22:29)
[2020-06-29 00:46] LABS: Troponin I 0.02 ng/mL (<0.03)
[2020-06-29 00:56] LABS: BUN/Creatinine Ratio 15.5 (8-20); Calcium 9.1 mg/dL (8.6-10.3); EGFR African American 77.7 (>60); EGFR Non-African American 64.2 (>60); Potassium 4.3 mmol/L (3.5-5.0)
[2020-06-29] MEDS ORDERED: Perflutren Lipid Microsphere 3 ML VIAL ONE (07:55)
[2020-06-29] MEDS ORDERED: Furosemide 20 mg/2 ml IV VIAL IV SLOW PU ONE (15:21)
[2020-06-29] MEDS: CMCS: Simvastatin 20 mg TAB (NF) PO SCH (21:18)
[2020-06-30] MEDS ORDERED: Senna TAB 8.6 mg TAB PO PRN (05:45)
[2020-06-30] MEDS ORDERED: Polyethylene Glycol 3350 17 GM PACKET PO PRN (05:45)
[2020-06-30 06:27] LABS: ABS Basophils 0.1 10^3/ul (0-0.2); ABS Eosinophils 0.2 10^3/ul (0-0.6); ABS Neutrophils 4.4 10^3/ul (1.5-7.7); Eosinophil % 2.7 %; Hematocrit 48 % (42-52); Hemoglobin 15.8 g/dL (14.0-18.0); Lymphocyte % 25.6 %; Mean Corpuscular HGB Conc 33 g/dL (31-36); Mean Corpuscular Hemoglobin 29 pg (27-31); Mean Corpuscular Volume 86 fL (80-94); Mean Platelet Volume 8.6 fL (7.4-10.4); Platelet Count 168 10^3/uL (150-450); Red Blood Count 5.53 10^6 /uL (4.18-5.48); Red Cell Distribution Width 15 % (10-15); White Blood Count 7.6 10^3/uL (3.5-10.8)
[2020-06-30 06:50] LABS: BUN/Creatinine Ratio 20.8 (8-20); Calcium 8.6 mg/dL (8.6-10.3); EGFR African American 70.1 (>60); Magnesium 1.9 mg/dL (1.9-2.7); Potassium 4.2 mmol/L (3.5-5.0)
[2020-06-30] MEDS ORDERED: Regadenoson 0.4 MG/5 ML SYRINGE ONE (12:05)
[2020-06-30 15:45] VITALS: BP 131/72
== END 2020-06-30 16:10 | disposition home or self-care (01) ==
LOC: ED 16:46 → MEDTELE 16:46
PROVIDERS: ADMIT Hospitalist; ATTEND Student in an Organized Health Care Education/Training Program